=== PATIENT | female | born 1950 | race Caucasian/White ===

== ENCOUNTER → 2019-05-02 13:11 | Outpatient (CLI) | payer MEDICARE, BC, SELFPAY ==
--- NOTE | ~2019-05-02 | MM_ITS ---
EXAMINATION: MM screening [facility] BI w carlos HISTORY: Screening mammogram, family history of breast cancer in her mother. TECHNIQUE: Craniocaudal and mediolateral oblique 3-D tomosynthesis images were obtained and synthetic 2-D images were generated. CAD analysis was submitted and interpreted. COMPARISON: No prior mammogram is available for comparison at this institution. BREAST PARENCHYMAL COMPOSITION: There are scattered areas of fibroglandular density. FINDINGS: There is no evidence of suspicious mass, calcification, or architectural distortion to sugg est malignancy in either breast. IMPRESSION: 1. No mammographic evidence of malignancy. 2. Recommend routine screening mammography in one year. BI-RADS Category 1: Negative Reviewed, dictated and finalized at location A.
--- NOTE | ~2019-05-02 | DEXA_ITS ---
Bone Density Report Name: Jessika Menjivar Age: 69 Sex: Female Ethnicity: White Date of : 1950 Indication: osteopenia; monitoring treatment; height loss; prior fracture; hysterectomy; postmenopausal Referring Provider: Linnette, Candi Ferraro Study: Bone densitometry was performed. Exam Date: May 02, 2019 Accession number: [id number] Bone Density: Region BMD T-score Z-score Classification AP Spine (L1-L4) 0.789 -2.3 -0.2 Osteopenia Femoral Neck (Left) 0.528 -2.9 -1.1 Osteoporosis Total Hip (Left) 0.671 -2.2 -0.7 Osteopenia Femoral Neck (Right) 0.597 -2.3 -0.5 Osteopenia Total Hip (Right) 0.728 -1.8 -0.2 Osteopenia Total Hip Mean 0.700 -2.0 -0.5 Osteopenia World Health Organization criteria for BMD impression classify patients as: Normal (T-score at or above -1.0), Osteopenia (T-score between -1.0 and -2.5), or Osteoporosis (T-score at or below -2.5). 10-year Fracture Risk: FRAX not reported because: Some T-score for Spine Total or Hip Total or Femoral Neck at or below -2.5 Treated for osteoporosis Previous Exams: Region Exam Age BMD T-score BMD Change BMD Change Date g/cm2 vs Baseline vs Previous AP Spine(L1-L4) 05/02/2019 69 0.789 -2.3 -0.110* -0.151* 12/28/2009 59 0.940 -1.0 0.041* 0.031* 12/19/2008 58 0.909 -1.3 0.010 -0.007 07/21/2007 57 0.916 -1.2 0.018 0.018 07/09/2006 56 0.899 -1.3 Total Hip(Left) 05/02/2019 69 0.671 -2.2 -0.095* -0.125* 12/28/2009 59 0.796 -1.2 0.031* 0.022 12/19/2008 58 0.774 -1.4 0.009 0.033* 07/21/2007 57 0.741 -1.6 -0.024 -0.024 07/09/2006 56 0.765 -1.5 Total Hip(Right) 05/02/2019 69 0.728 -1.8 -0.066* -0.074* 12/28/2009 59 0.802 -1.1 0.008 0.018 12/19/2008 58 0.785 -1.3 -0.009 -0.001 07/21/2007 57 0.786 -1.3 -0.008 -0.008 07/09/2006 56 0.794 -1.2 *Denotes significance at 95% confidence level, LSC for AP Spine = 0.022 g/cm2, LSC for Total Hip = 0.027 g/cm2 Clinical Information Provided by Patient: Has had a low trauma fracture Is being treated for osteoporosis Has used the following medications: Fosamax (i.e. alendronate), Vitamin D Has the following medical conditions: Hysterectomy, COPD Patient maximum height was 66 Menopause Age: 32 Drinks caffeinated beverages Onset of menses at age 1
== END ==
PROVIDERS: PCP Family Medicine; Visit Provider Nurse Practitioner Obstetrics & Gynecology
DX: Z12.31 Encounter for screening mammogram for malignant neoplasm of breast (principal); M85.89 Other specified disorders of bone density and structure, multiple sites; M81.0 Age-related osteoporosis without current pathological fracture; Z78.0 Asymptomatic menopausal state
CPT/HCPCS: 77063; 77067; 77080

== ENCOUNTER 2020-01-16 07:27 | Outpatient (CLI) | payer MEDICARE, BC, SELFPAY ==
--- NOTE | ~2020-01-16 | CT_ITS ---
EXAMINATION: CT abdomen pelvis wo con EXAM DATE: 01/16/2020 08:02 INDICATION: Kidney stone. TECHNIQUE: Spiral CT of the abdomen and pelvis was performed without contrast. Axial, coronal and sag ittal images were reviewed. The dose-length product (DLP) for this examination was 167.89 mGy-cm. T he exposure was tailored according to patient size (auto mA exposure control), and iterative reconstr uction (ASIR) was used as additional dose reduction technique. There is no prior study for compariso n. FINDINGS: There is no nephrolithiasis or hydronephrosis. The uterus is not identified and has likel y been surgically resected. The bladder is unremarkable. The liver, spleen, adrenal glands and panc reas are unremarkable. There are cholecystectomy clips. There is no retroperitoneal or pelvic lymph adenopathy. There is mild scattered arteriosclerotic disease. The appendix is normal. The stomach and small bowel are unremarkable. There is expected amount of c olonic stool. No free intraperitoneal gas. The heart is normal in size. There are no pericardial or pleural effusions. The lung bases are unremarkable. 2 chronic bilateral L5 spondylolysis with 2 mm anterolisthesis L5 on S1. Mild lumbar levoscoliosis. There are no osteoblastic or osteolytic lesi ons identified. IMPRESSION: No nephrolithiasis, hydronephrosis or acute intra-abdominal findings. Reviewed, dictated and finalized at location B. 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
== END 2020-01-16 07:28 | disposition home or self-care (01) ==
PROVIDERS: PCP Family Medicine
DX: N20.0 Calculus of kidney (principal)
CPT/HCPCS: 74176

== ENCOUNTER 2020-03-30 08:58 | Outpatient (CLI) | payer MEDICARE, BC, SELFPAY ==
--- NOTE | ~2020-03-30 | XR_ITS ---
XR chest 2V DATE: 03/30/2020 10:29 INDICATION: Chest pain TECHNIQUE: PA and lateral views COMPARISON: 03/14/2015 2 views chest FINDINGS: Bilateral hyperinflation consistent with obstructive airways disease. Normal heart size. No hilar or mediastinal enlargement. There is bilateral apical scarring. No pulmonary infiltrate or consolidation, pleural effusion or pul monary vascular congestion or pneumothorax. Surgical clips, right upper quadrant, likely due to cholecystectomy. Osteopenia. IMPRESSION: Bilateral hyperinflation consistent with obstructive airways disease Bilateral apical scarring No active cardiopulmonary disease Reviewed, dictated and finalized at location A. ING INSTRUCTOR IMPRESSION: Bilateral hyperinflation consistent with obstructive airways diseas e Bilateral apical scarring No active cardiopulmonary disease
--- NOTE | ~2020-03-30 | MR_ITS ---
EXAMINATION: MR cervical spine wo con EXAM DATE: 03/30/2020 10:24 INDICATION: Cervical spondylosis, myelopathy. TECHNIQUE: Multi-sequential, multiplanar MR images of the cervical spine were obtained without contra st. Axial T2, axial T2 MERGE sequence. Sagittal T1, T2, T2 fat saturation images also obtained. Com parison is made to prior examination from 03/21/2014. FINDINGS: Congenital os odontoideum. There is moderate disc disease C3-C7, mild to moderate at C2-3. The vertebral bodies are aligned in the AP dimension. The spinal cord signal intensity and intrinsic morphology is normal. Cervicomedullary junction is normal in appearance. There are no suspicious mar row signal abnormalities. Paraspinal soft tissue is unremarkable. Level by level evaluation: C2-C3: There is a mild diffuse disc bulge. Uncovertebral joint arthropathy: None. Facet joint arthropathy: Mild bilateral. Neural foraminal stenosis: No stenosis. Central canal stenosis: No stenosis. C3-C4: There is a mild diffuse disc bulge. Uncovertebral joint arthropathy: Mild bilateral. Facet joint arthropathy: Mild bilateral. Neural foraminal stenosis: Mild right. Central canal stenosis: Mild. C4-C5: There is a mild diffuse disc bulge. Uncovertebral joint arthropathy: Mild to moderate bilateral. Facet joint arthropathy: Mild to moderate bilateral. Neural foraminal stenosis: Mild to moderate left, mild right. Central canal stenosis: Mild. C5-C6: There is a mild diffuse disc bulge. Uncovertebral joint arthropathy: Moderate bilateral. Facet joint arthropathy: Moderate bilateral. Neural foraminal stenosis: Mild right. Central canal stenosis: Mild. C6-C7: There is a mild diffuse disc bulge. Uncovertebral joint arthropathy: Moderate bilateral. Facet joint arthropathy: Mild bilateral. Neural foraminal stenosis: Mild to moderate left. Central canal stenosis: Mild. C7-T1: Disc does not extend beyond the endplate margin. Uncovertebral joint arthropathy: None. Facet joint arthropathy: Mild bilateral. Neural foraminal stenosis: No stenosis. Central canal stenosis: No stenosis. Mild interval progression in spondylosis compared to 2014. IMPRESSION: Moderate midcervical disc disease and uncovertebral joint arthropathy. Reviewed, dictated and finalized at location B. 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
--- NOTE | ~2020-03-30 | MR_ITS ---
EXAMINATION: MR lumbar spine wo [facility] EXAM DATE: 03/30/2020 10:30 INDICATION: Spondylosis without myelopathy. TECHNIQUE: Multi-sequential, multiplanar MR images of the lumbar spine were obtained without contrast . Sagittal T1, T2, T2 fat saturation images. Axial T2 weighted images. There is no prior study for comparison. FINDINGS: Mildly heterogeneous bone marrow without suspicious signal abnormality. There is a small Ta rlov cyst posterior to the S2 segment. Mild disc disease from L2 through L5. The vertebral bodies are aligned in the AP dimension. The conus medullaris terminates at the T12-L1 level and has normal sign al intensity and morphology. Paraspinal soft tissue is unremarkable. Level by level evaluation: T12-L1: Disc does not extend beyond the endplate margin. Facet arthropathy: None. Neural foraminal stenosis: No stenosis. Central canal stenosis: No stenosis. L1-L2: Disc does not extend beyond the endplate margin. Facet arthropathy: Minimal. Neural foraminal stenosis: No stenosis. Central canal stenosis: No stenosis. L2-L3: There is a mild diffuse disc bulge. Facet arthropathy: Mild. Neural foraminal stenosis: No stenosis. Central canal stenosis: No stenosis. L3-L4: There is a mild to moderate diffuse disc bulge. Facet arthropathy: Mild to moderate. Neural foraminal stenosis: Mild right. Central canal stenosis: Mild. L4-L5: There is a mild diffuse disc bulge. Facet arthropathy: Mild to moderate. Neural foraminal stenosis: Mild bilateral. Central canal stenosis: Mild. L5-S1: There is a mild diffuse disc bulge. Facet arthropathy: Mild to moderate. Neural foraminal stenosis: Minimal right. Central canal stenosis: No stenosis. IMPRESSION: 1. Mild lumbar spondylosis. Reviewed, dictated and finalized at location B. TY SHERIFF/INVESTIGATOR IMPRESSION: 1. Mild lumbar spondylosis.
== END 2020-03-30 08:59 | disposition home or self-care (01) ==
PROVIDERS: PCP Family Medicine; Visit Provider Anesthesiology
DX: M47.812 Spondylosis without myelopathy or radiculopathy, cervical region (principal); M47.26 Other spondylosis with radiculopathy, lumbar region; M50.30 Other cervical disc degeneration, unspecified cervical region; R91.8 Other nonspecific abnormal finding of lung field
CPT/HCPCS: 71046; 72141; 72148

== ENCOUNTER → 2020-06-25 12:03 | Outpatient (CLI) | payer MEDICARE, BC, SELFPAY ==
--- NOTE | ~2020-06-25 | MM_ITS ---
EXAMINATION: MM screening [facility] BI w carlos HISTORY: Screening TECHNIQUE: Craniocaudal and mediolateral oblique 3-D tomosynthesis images were obtained and synthetic 2-D images were generated. CAD analysis was submitted and interpreted. COMPARISON: 05/02/2019 BREAST PARENCHYMAL COMPOSITION: There are scattered areas of fibroglandular density. FINDINGS: The there is a focal asymmetry in the lower inner quadrant of the left breast anteriorly. T he right breast is stable without evidence for malignancy. IMPRESSION: 1. Focal asymmetry lower inner quadrant of the left breast anteriorly. 2. Additional mammographic views and possible breast ultrasound are recommended. BI-RADS Category 0: Incomplete: Needs additional imaging evaluation. Reviewed, dictated and finalized at location A. IMPRESSION: 1. Focal asymmetry lower inner quadrant of the left breast anteriorly. 2. Additional mammographic views and possible breast ultrasound are recommended . BI-RADS Category 0: Incomplete: Needs additional imaging evaluation.
== END ==
PROVIDERS: Referring Provider Nurse Practitioner Obstetrics & Gynecology; Visit Provider Obstetrics & Gynecology
DX: Z12.31 Encounter for screening mammogram for malignant neoplasm of breast (principal); R92.8 Other abnormal and inconclusive findings on diagnostic imaging of breast
CPT/HCPCS: 77063; 77067

== ENCOUNTER → 2020-07-20 08:28 | Outpatient (CLI) | payer MEDICARE, BC, SELFPAY ==
--- NOTE | ~2020-07-20 | MMUS_ITS ---
EXAMINATION: MM diagnostic mammo unilat LT, US breast LT limited HISTORY: Focal mammographic asymmetry reported in the lower inner quadrant of left breast on 06/25/2020 screening mammogram TECHNIQUE: Additional 3-D tomosynthesis images of the left breast were performed and synthetic 2-D im ages were generated. CAD analysis was submitted and interpreted. High resolution lower inner quadrant left breast ultrasound was performed. COMPARISON: 06/25/2020 and 05/02/2019 bilateral digital screening mammogram examinations FINDINGS: MAMMOGRAPHIC FINDINGS: No interval suspicious mass or architectural distortion or significant new or developing density, mal ignant calcification, skin thickening or retraction is evident. ULTRASOUND: 8:00 4 cm from nipple: Benign-appearing 3.1 x 4.9 x 5.2 mm lymph node. No suspicious mass or shadowing is detected. IMPRESSION: 1. No mammographic evidence of malignancy 2. Routine mammographic screening is recommended. BI-RADS Category 2: Benign finding(s). Reviewed, dictated and finalized at location A. IMPRESSION: 1. No mammographic evidence of malignancy 2. Routine mammographic screening is recommended. BI-RADS Category 2: Benign finding(s).
== END ==
PROVIDERS: Visit Provider Obstetrics & Gynecology
DX: R92.8 Other abnormal and inconclusive findings on diagnostic imaging of breast (principal)
CPT/HCPCS: 76642; 77065

== ENCOUNTER 2020-08-30 08:41 | Outpatient (CLI) | payer MEDICARE, BC, SELFPAY ==
--- NOTE | 2020-08-30 17:01 | WPDPFTINT ---
PFT Procedure Performed PFT Procedure Performed Spirometry with Pre/Post Bronchodilator Plethysmography (Lung Vol) Diffusing Cap (DLCO) Flow Vol Loop PFT Interpretation This is a pulmonary function test with pre and post-bronchodilator spirometry, plethysmography and diffusing capacity. The test was performed and results interpreted in accordance with the 2019 and 2005 ATS/ERS Task Force guidelines respectively using the Global Lung Function Initiative-2012 reference equations. Patient demonstrated good effort and cooperation. Reproducibility criteria were met. The quality of the pre bronchodilator spirometry maneuver was Grade B and post bronchodilator spirometry maneuver was Grade A. Findings: Spirometry: The contour of the inspiratory and expiratory flow tracing are normal. The pre bronchodilator FVC is 3.29 L, 116% predicted. The pre bronchodilator FEV1 is 2.29 L, 104% predicted. The FEV1: FVC ratio 70%. The post bronchodilator FVC is 3.36 L, representing a 2% increase. The post bronchodilator FEV1 is 2.39 L, representing a 4% increase. Plethysmography: The total lung capacity is 5.03 L, 99% predicted. Functional residual capacity is 2.99 L, 103% predicted. The residual volume is 1.74 L, 79% predicted. Diffusing capacity: The absolute diffusion capacity is 14.8, 73% predicted. The diffusing capacity corrected for alveolar volume is 3.50, 82% predicted. In comparison to prior pulmonary function tests on 03/22/2015 the post bronchodilator FVC is unchanged from 3.84 L to 3.36 L. The post bronchodilator FEV1 is unchanged from 2.78 to 2.39 L. The total lung capacity is unchanged from 4.52 L to 5.03 L. The functional residual capacity is increased from 2.21 L to 2.99 L. The residual volume is increased from 0.65 L to 1.74 L. The absolute diffusion capacity is unchanged from 15.6 to 14.8. The diffusing capacity corrected for alveolar volume is unchanged from 3.18 to 3.50. Impression: The spirometry is normal without evidence of an obstructive abnormality. There is no significant improvement after inhaling a single dose of albuterol. The lung volumes are normal. The diffusing capacity is normal. In comparison to prior pulmonary function tests on 03/22/2015 there has been a greater than anticipated time dependent increase in functional residual capacity and residual volume with no significant change in FVC, FEV1, total lung capacity, absolute diffusion capacity or diffusing capacity corrected for alveolar volume. Clinical correlation is recommended. There are no prior studies for comparison
== END 2020-08-30 08:42 | disposition home or self-care (01) ==
LOC: ANHPFT 08:42
PROVIDERS: PCP Family Medicine; Visit Provider Family Medicine
DX: J44.9 Chronic obstructive pulmonary disease, unspecified (principal)
CPT/HCPCS: 94060; 94726; 94729

== ENCOUNTER 2020-09-03 02:26 | Day surgery (SDC) | payer MEDICARE, BC, SELFPAY ==
[2020-09-03 06:22] VITALS: BP 102/70; PULSE 60; RESP 16; TEMP 35.9; O2SAT 99; BMI 19.5
--- NOTE | 2020-09-03 06:28 | WPDANESEPPF ---
Anes - Initial Pre Proc Eval Procedure: Operation Date: 09/03/20 07:30 Proposed Procedures p Screening Colonoscopy - Kennedy Huynh MD Date/Time: 09/03/20 06:28 Surgeon: Kennedy Huynh MD Pre Op Diagnosis: family hx colon CA Patient Data Age: 70 Gender: F Height: 1.63 m Weight: 51.5 kg Last Vital Signs Temp 35.9 C L 09/03/20 06:22 Pulse 60 09/03/20 06:22 Resp 16 09/03/20 06:22 BP 102/70 09/03/20 06:22 Pulse Ox 99 09/03/20 06:22 Allergies Allergy/AdvReac Type Severity Reaction Status Date / Time codeine Allergy Severe TONGUE Verified 09/03/20 06:20 SWELLS iodine Allergy Severe TONGUE Verified 09/03/20 06:20 SWELLS, HIVES hydrocodone Allergy Intermediate ITCHY, Verified 09/03/20 06:20 RASH, VOMITING meperidine Allergy Intermediate RASH, Verified 09/03/20 06:20 VOMITING Penicillins Allergy Intermediate RASH Verified 09/03/20 06:20 propoxyphene Allergy Unknown Other Verified 09/03/20 06:20 Home Medications Medication Instructions Recorded Confirmed Type alendronate 70 mg tablet 70 mg PO WEEKLY 03/23/19 08/15/20 History apixaban 5 mg tablet 5 mg PO BID 03/23/19 09/03/20 History flecainide 100 mg tablet 100 mg PO Q12H 03/23/19 08/15/20 History metoprolol succinate 25 mg 25 mg PO DAILY 03/23/19 08/15/20 History tablet,extended release 24 hr omeprazole 20 mg capsule,delayed 20 mg PO DAILY 03/23/19 08/15/20 History release fluticasone propionate 50 1 spray NASAL BID #19.8 ml 11/28/19 08/15/20 Rx mcg/actuation nasal spray,suspension atorvastatin 10 mg tablet 10 mg PO DAILY #30 tablet 01/10/20 08/15/20 Rx gabapentin 300 mg capsule 300 mg PO BID #180 cap 01/16/20 08/15/20 Rx lorazepam 0.5 mg tablet 0.5 mg PO BID PRN #60 tablet 03/06/20 08/15/20 Rx paroxetine HCl 40 mg tablet 40 mg PO DAILY #30 tablet 06/04/20 08/15/20 Rx Patient hx anesthesia problems: post op nausea/vomiting Family hx anesthesia problems: none PMFSH Past Medical History Medical History Actinic keratosis Anemia Arthritis BMI 20.0-20.9, adult Chronic anxiety Chronic atrial fibrillation Chronic depression Chronic interstitial cystitis Chronic low back pain with right-sided sciatica Chronic neck pain Chronic obstructive pulmonary disease, unspecified Generalized headaches GERD (gastroesophageal reflux disease) Heart disease Insomnia 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 Osteoporosis Renal stone Surgical History Surgical History H/O cardiac radiofrequency ablation H/O left wrist surgery H/O prior ablation treatment H/O: hysterectomy (~1982) History of appendectomy (~1973) History of nasal surgery (~2015) History of shoulder surgery (Unknown) right History of toe surgery Hx of cholecystectomy (~1973) Family History Family History Father Carcinoma of colon Mother Family history of malignant neoplasm of breast in first degree relative Family history of malignant neoplasm Grandparent Family history of malignant neoplasm of stomach Other Family history of pancreatic cancer Social History Social History Smoking status: Never smoker Alcohol intake: current Alcohol use details: socially Living arrangements: alone Spiritual care concerns: No Anes - Eval Final PreProcedure Day of Procedure 09/03/20 06:28 Patient weight: normal Heart: regular rate and rhythm Lungs: clear to auscultation Airway: Mallampati scale class 1 Neurological: alert and oriented Last oral intake: >/= 8 hours ASA classification: III Anesthetic plan: proceed
[2020-09-03] MEDS: LACTATED RINGERS 1,000 ML 150 ML IV CONT (06:36)
--- NOTE | 2020-09-03 07:05 | PM.HPGS ---
History of Present Illness History of Present Illness Consent: Risks, benefits, and alternatives have been discussed and questions answered. Patient agrees to proceed with procedure. Chief complaint: family hx colon CA Narrative: Jessika Menjivra is a 70 year old female Here for colon cancer screening. 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 Osteoporosis Renal stone Surgical History Surgical History H/O cardiac radiofrequency ablation H/O left wrist surgery H/O prior ablation treatment H/O: hysterectomy (~1982) History of appendectomy (~1973) History of nasal surgery (~2015) History of shoulder surgery (Unknown) right History of toe surgery Hx of cholecystectomy (~1973) Family History Family History Father Carcinoma of colon Mother Family history of malignant neoplasm of breast in first degree relative Family history of malignant neoplasm Grandparent Family history of malignant neoplasm of stomach Other Family history of pancreatic cancer Social History Social History Smoking status: Never smoker Alcohol intake: current Alcohol use details: socially Living arrangements: alone Spiritual care concerns: No Meds Home Medications and Allergies Home Medications Medication Instructions Recorded Confirmed Type alendronate 70 mg tablet 70 mg PO WEEKLY 03/23/19 08/15/20 History apixaban 5 mg tablet 5 mg PO BID 03/23/19 09/03/20 History flecainide 100 mg tablet 100 mg PO Q12H 03/23/19 08/15/20 History metoprolol succinate 25 mg 25 mg PO DAILY 03/23/19 08/15/20 History tablet,extended release 24 hr omeprazole 20 mg capsule,delayed 20 mg PO DAILY 03/23/19 08/15/20 History release fluticasone propionate 50 1 spray NASAL BID #19.8 ml 11/28/19 08/15/20 Rx mcg/actuation nasal spray,suspension atorvastatin 10 mg tablet 10 mg PO DAILY #30 tablet 01/10/20 08/15/20 Rx gabapentin 300 mg capsule 300 mg PO BID #180 cap 01/16/20 08/15/20 Rx lorazepam 0.5 mg tablet 0.5 mg PO BID PRN #60 tablet 03/06/20 08/15/20 Rx paroxetine HCl 40 mg tablet 40 mg PO DAILY #30 tablet 06/04/20 08/15/20 Rx Allergies Allergy/AdvReac Type Severity Reaction Status Date / Time codeine Allergy Severe TONGUE Verified 09/03/20 06:20 SWELLS iodine Allergy Severe TONGUE Verified 09/03/20 06:20 SWELLS, HIVES hydrocodone Allergy Intermediate ITCHY, Verified 09/03/20 06:20 RASH, VOMITING meperidine Allergy Intermediate RASH, Verified 09/03/20 06:20 VOMITING Penicillins Allergy Intermediate RASH Verified 09/03/20 06:20 propoxyphene Allergy Unknown Other Verified 09/03/20 06:20 Vital Signs Vital Signs - 24 hr 09/03/20 06:22 Temperature 35.9 C L Pulse Rate 60 Respiratory Rate 16 Blood Pressure 102/70 Pulse Oximetry 99 Exam Const: General: alert Orientation/consciousness: patient oriented x3 Resp: Auscultation: clear to auscultation bilaterally Cardio: Rhythm: regular rhythm GI: GI Palp: Yes Soft to palpation and No Tenderness to p
[2020-09-03] MEDS: SIMETHICONE ORAL SUSPENSION 20 MG/0.3 ML 30 ML BOTTLE 0.6 ML IRRIGATION (07:34)
[2020-09-03 07:45] VITALS: BP 89/49; PULSE 53; RESP 12; O2SAT 100
[2020-09-03 07:55] VITALS: BP 95/51; PULSE 53; RESP 12; O2SAT 100
[2020-09-03 08:05] VITALS: BP 112/53; PULSE 53; RESP 16; O2SAT 95
== END 2020-09-03 08:21 | disposition home or self-care (01) ==
PROVIDERS: PCP Family Medicine; Visit Provider Internal Medicine Gastroenterology
PROC: 0DJD8ZZ Inspection of Lower Intestinal Tract, Via Natural or Artificial Opening Endoscopic (ICD-10-PCS; CPT 45378; principal; 2020-09-03 07:30)
DX: Z12.11 Encounter for screening for malignant neoplasm of colon (principal); D12.2 Benign neoplasm of ascending colon; Z80.0 Family history of malignant neoplasm of digestive organs; D64.9 Anemia, unspecified; I48.20 Chronic atrial fibrillation, unspecified; J44.9 Chronic obstructive pulmonary disease, unspecified; K21.9 Gastro-esophageal reflux disease without esophagitis; M81.0 Age-related osteoporosis without current pathological fracture; F41.8 Other specified anxiety disorders; M19.90 Unspecified osteoarthritis, unspecified site; Z79.01 Long term (current) use of anticoagulants
CPT/HCPCS: 45380; 88305; J2704; J7120

== ENCOUNTER → 2021-09-18 13:25 | Outpatient (CLI) | payer MEDICARE, BC, SELFPAY ==
--- NOTE | ~2021-09-18 | MM_ITS ---
EXAMINATION: MM screening [facility] BI w carlos HISTORY: Screening mammogram TECHNIQUE: Craniocaudal and mediolateral oblique 3-D tomosynthesis images were obtained and synthetic 2-D images were generated. CAD analysis was submitted and interpreted. COMPARISON: 07/20/2020 diagnostic left mammogram and limited left breast ultrasound examination BREAST PARENCHYMAL COMPOSITION: There are scattered areas of fibroglandular density. FINDINGS: Stable mild fibroglandular asymmetry. There is no evidence of suspicious mass, calcificatio n, or architectural distortion to suggest malignancy in either breast. There has been no suspicious i nterval change. IMPRESSION: 1. No mammographic evidence of malignancy. 2. Recommend routine screening mammography in one year. BI-RADS Category 1: Negative Reviewed, dictated and finalized at location A.
== END ==
PROVIDERS: PCP Family Medicine; Visit Provider Advanced Practice Midwife
DX: Z12.31 Encounter for screening mammogram for malignant neoplasm of breast (principal)
CPT/HCPCS: 77063; 77067

== ENCOUNTER 2021-10-07 19:00 | Emergency (ER) | payer MEDICARE, BC, SELFPAY ==
[2021-10-07 19:11] VITALS: BP 92/59; PULSE 72; RESP 30; TEMP 36.4; O2SAT 97
--- NOTE | 2021-10-07 19:15 | ECG_ITS ---
Measurements Intervals Brickeys Rate: 75 P: 72 W[place]: 186 QRS: 265 QRSD: 110 T: 61 QT: 312 QTc: 351 Interpretive Statements SINUS RHYTHM INDETERMINATE AXIS NONSPECIFIC ST AND T-WAVE ABNORMALITY SIGNIFICANT ARTIFACT LIMITS INTERPRETATION ABNORMAL ECG NO PREVIOUS ECG AVAILABLE FOR COMPARISON Electronically Signed On 10-08-2021 8:47:10 CDT by Mendez Uriostegui M.D.
[2021-10-07 19:27] LABS: Basophils Percent Auto 0.5 % (0.2-1.2); Eosinophils Percent Auto 0.3 % (0-4.4); Hematocrit 33.7 % (37.0-47.0); Hemoglobin 11.4 g/dL (12.0-15.0); Immature Granulocyte Absolute 0.02 K/mm3 (0.00-0.031); Immature Granulocyte Percent A 0.5 % (0-0.5); Lymphocytes Absolute Auto 1.44 K/mm3 (0.9-3.2); Lymphocytes Percent Auto 37.6 % (18.3-44.2); Mean Corpuscular HGB Conc 33.8 g/dl (32-36); Mean Corpuscular Hemoglobin 30.5 pg (26-34); Mean Corpuscular Volume 90.1 fl (80-100); Mean Platelet Volume 10.4 fl (7.4-10.4); Monocytes Absolute Auto 0.3 K/mm3 (0.1-0.6); Neutrophils Absolute Auto 2.1 K/mm3 (1.3-6.7); Neutrophils Percent Auto 54.1 % (45.5-73.1); Platelet Count Result 168 k/mm3 (150-375); Red Blood Count 3.74 M/mm3 (4.2-5.4); Red Cell Distribution Width 13.3 % (11.5-14.5); White Blood Count 3.8 K/mm3 (4.5-10.0)
[2021-10-07 20:20] LABS: Alanine Aminotransferase 26 U/L (6-35); Albumin Level 4.3 g/dL (3.5-5.1); Alkaline Phosphatase 65 U/L (38-126); Anion Gap 12 mmol/L (8-16); Aspartate Amino Transferase 34 U/L (14-36); Bilirubin,Total 0.5 mg/dL (0.2-1.3); Blood Urea Nitrogen 11 mg/dL (7-17); Calcium 9.1 mg/dL (8.4-10.2); Carbon Dioxide 21 mmol/L (22-30); Chloride 106 mmol/L (98-107); Estimated CRCL calculation 41 ml/min; Estimated Glomerular Filt Rate > 60; Glucose 124 mg/dL (65-110); Potassium 3.7 mmol/L (3.4-5.0); Sodium 139 mmol/L (137-145)
[2021-10-07 20:35] LABS: Lipase 48 U/L (23-300)
[2021-10-07 21:29] VITALS: RESP 27; O2SAT 100
[2021-10-07 21:30] VITALS: RESP 23; O2SAT 100
[2021-10-07 22:04] VITALS: PULSE 62; RESP 16
[2021-10-07] MEDS: LORazepam INJ (*CRX) 2 MG/ML VIAL 0.5 MG IV PUSH (22:16)
[2021-10-07 22:22] VITALS: BP 138/78; PULSE 59; RESP 15; O2SAT 100
--- NOTE | 2021-10-07 22:23 | ED.GENADULT ---
HPI - General Adult General Chief complaint: Unspecified Stated complaint: Chest Pain Time Seen by Provider: 10/07/21 21:43 History of Present Illness HPI narrative: 71-year-old female presents emergency room after taking some CBD for the first time. Patient is got chronic underlying tremors. Someone told her that the CBD may actually help with this. She took half to 1 and afterwards began feeling even more off. She states she was feeling out of it. She was more jittery and shaky. She felt like her heart was racing. She does have underlying history of A. fib as well as SVT. Subsequently she came to the emergency room to be evaluated. Denies any chest pain or shortness of breath. No cough or congestion. Related Data Home Medications Medication Instructions Recorded Confirmed apixaban 5 mg tablet (Eliquis) 5 mg PO BID 03/23/19 06/05/21 flecainide 100 mg tablet 100 mg PO Q12H 03/23/19 06/05/21 metoprolol succinate 25 mg 25 mg PO DAILY 03/23/19 06/05/21 tablet,extended release 24 hr omeprazole 20 mg capsule,delayed 20 mg PO DAILY 03/23/19 06/05/21 release cyanocobalamin (vitamin B-12) 1,000 mcg PO DAILY 01/07/21 06/05/21 1,000 mcg tablet cholecalciferol (vitamin D3) 50 2,000 unit PO DAILY 06/05/21 06/05/21 mcg (2,000 unit) capsule gentesa BYMOUTH . q.h.s. 06/05/21 06/05/21 Allergies Allergy/AdvReac Type Severity Reaction Status Date / Time codeine Allergy Severe TONGUE Verified 10/07/21 19:11 SWELLS iodine Allergy Severe TONGUE Verified 10/07/21 19:11 SWELLS, HIVES hydrocodone Allergy Intermediate ITCHY, Verified 10/07/21 19:11 RASH, VOMITING meperidine Allergy Intermediate RASH, Verified 10/07/21 19:11 VOMITING Penicillins Allergy Intermediate RASH Verified 10/07/21 19:11 propoxyphene Allergy Unknown Other Verified 10/07/21 19:11 Review of Systems Review of Systems: CONSTITUTIONAL: Denies fever, chills, or sweats. EYES: Denies visual changes, redness, or discharge. ENT: Denies rhinorrhea, congestion, sore throat, or otalgia. CARDIOVASCULAR: Denies chest pain, palpitations, or edema. RESPIRATORY: Denies cough or dyspnea. GASTROINTESTINAL: Denies abdominal pain, nausea, vomiting, or diarrhea. GENITOURINARY: Denies dysuria or hematuria. SKIN: Denies rash or itching. MUSCULOSKELETAL: Denies back pain, joint pain, or myalgia. NEUROLOGIC: Denies headache, numbness, or weakness. Chronic tremors PSYCHIATRIC: Denies anxiety or depression. [facility] Past Medical History Medical History Actinic keratosis Anemia hemoglobin normal at 12.0 on 01/05/2021 Arthritis BMI 20.0-20.9, adult Body mass index (BMI) of 19 or less in adult Chronic anxiety Chronic atrial fibrillation Chronic depression Chronic interstitial cystitis Chronic leukopenia WBC 2.7 with platelets 140 on 07/11/2019 with WBC 2.8, hemoglobin 12, and platelets 140 on 01/05/2021 Chronic low back pain with right-sided sciatica Chronic neck pain Chronic obstructive pulmonary disease, unspecified normal pulmonary function study on 08/30/2020 with mild small- airway reversibility Chronic thoracic back pain Generalized headaches GERD (gastroesophageal reflux disease) Heart disease Insomnia Neoplasm of skin of upper arm (08/07/20) benign verrucous keratosis Neutropenic disorder Osteoarthritis involving multiple joints on both sides of body Osteoporosis Polyp of colon (09/03/20) multiple tiny colon polyps on colonoscopy 09/03/[address] Hunyh. Recheck in 5 years Renal stone Vitamin B12 deficiency anemia vitamin B12 low at 337 with folic acid normal 19.1 on 01/05/2021 Vitamin D deficiency, unspecified (~01/05/21) Vitamin-D level low at 26.2 on 01/05/2021 Surgical History Surgical History H/O cardiac radiofrequency ablation H/O left wrist surgery H/O prior ablation treatment H/O: hysterectomy (~1982) Hist
[2021-10-07 23:23] VITALS: PULSE 90; RESP 18; O2SAT 99
== END 2021-10-07 23:25 | disposition home or self-care (01) ==
PROVIDERS: Emergency Provider Emergency Medicine; PCP Family Medicine
DX: F41.9 Anxiety disorder, unspecified (principal); T40.715A Adverse effect of cannabis, initial encounter; I48.91 Unspecified atrial fibrillation; D64.9 Anemia, unspecified; F32.9 Major depressive disorder, single episode, unspecified; K21.9 Gastro-esophageal reflux disease without esophagitis; M19.90 Unspecified osteoarthritis, unspecified site
CPT/HCPCS: 36415; 80053; 83690; 85025; 93005; 96374; 99284; J2060

== ENCOUNTER → 2021-10-25 12:18 | Outpatient (CLI) | payer MEDICARE, BC, SELFPAY ==
--- NOTE | ~2021-10-25 | DEXA_ITS ---
Bone Density Report Name: LISSET MORILLO Age: 71 Sex: Female Ethnicity: White Date of : 1950 Indication: osteopenia; monitoring treatment; height loss; prior fracture; hysterectomy; Referring Provider: Bonnie Nichols Study: Bone densitometry was performed. Exam Date: October 25, 2021 Accession number: [id number] Bone Density: Region BMD T-score Z-score Classification AP Spine (L1-L4) 0.819 -2.1 0.2 Osteopenia Femoral Neck (Left) 0.532 -2.9 -0.9 Osteoporosis Total Hip (Left) 0.699 -2.0 -0.3 Osteopenia Femoral Neck (Right) 0.612 -2.1 -0.2 Osteopenia Total Hip (Right) 0.735 -1.7 0.0 Osteopenia Total Hip Mean 0.717 -1.9 -0.2 Osteopenia World Health Organization criteria for BMD impression classify patients as: Normal (T-score at or above -1.0), Osteopenia (T-score between -1.0 and -2.5), or Osteoporosis (T-score at or below -2.5). 10-year Fracture Risk: FRAX not reported because: Some T-score for Spine Total or Hip Total or Femoral Neck at or below -2.5 Treated for osteoporosis Previous Exams: Region Exam Age BMD T-score BMD Change BMD Change Date g/cm2 vs Baseline vs Previous AP Spine(L1-L4) 10/25/2021 71 0.819 -2.1 -0.079* 0.030* 05/02/2019 69 0.789 -2.3 -0.110* -0.151* 12/28/2009 59 0.940 -1.0 0.041* 0.031* 12/19/2008 58 0.909 -1.3 0.010 -0.007 07/21/2007 57 0.916 -1.2 0.018 0.018 07/09/2006 56 0.899 -1.3 Total Hip(Left) 10/25/2021 71 0.699 -2.0 -0.066* 0.029* 05/02/2019 69 0.671 -2.2 -0.095* -0.125* 12/28/2009 59 0.796 -1.2 0.031* 0.022 12/19/2008 58 0.774 -1.4 0.009 0.033* 07/21/2007 57 0.741 -1.6 -0.024 -0.024 07/09/2006 56 0.765 -1.5 Total Hip(Right) 10/25/2021 71 0.735 -1.7 -0.059* 0.007 05/02/2019 69 0.728 -1.8 -0.066* -0.074* 12/28/2009 59 0.802 -1.1 0.008 0.018 12/19/2008 58 0.785 -1.3 -0.009 -0.001 07/21/2007 57 0.786 -1.3 -0.008 -0.008 07/09/2006 56 0.794 -1.2 *Denotes significance at 95% confidence level, LSC for AP Spine = 0.022 g/cm2, LSC for Total Hip = 0.027 g/cm2 Clinical Information Provided by Patient: Has had a low trauma fracture Is being treated for osteoporosis Has used the following medications: Vitamin D Has the follow
== END ==
PROVIDERS: PCP Family Medicine; Visit Provider Advanced Practice Midwife
DX: M85.88 Other specified disorders of bone density and structure, other site (principal); M81.0 Age-related osteoporosis without current pathological fracture; M85.852 Other specified disorders of bone density and structure, left thigh; M85.851 Other specified disorders of bone density and structure, right thigh
CPT/HCPCS: 77080

== ENCOUNTER 2022-03-28 11:02 | Emergency (ER) | payer MEDICARE, BC, SELFPAY ==
--- NOTE | ~2022-03-28 | US_ITS ---
EXAMINATION: US venous doppler LE RT DATE: 03/28/2022 13:41 INDICATION: Right lower limb pain TECHNIQUE: Grayscale ultrasound images without and with compression and Doppler ultrasound images of the right lower extremity veins were obtained. COMPARISON: None. FINDINGS: The visualized portions of right common femoral vein, profunda (deep) femoral vein, femoral vein, pop liteal vein, peroneal trunk, posterior tibial veins, peroneal veins, gastrocnemius vein and greater s aphenous vein outflow are patent. IMPRESSION: 1. No deep venous thrombosis in the right lower limb. Reviewed, dictated and finalized at location A. 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
--- NOTE | ~2022-03-28 | CT_ITS ---
Non-contrast CT scan of the Abdomen and Pelvis Clinical indication: Abdominal pain Technique: 5 mm axial scans were obtained through the abdomen and pelvis without intravenous or oral contrast. Dose reduction technique was used on this scan by utilizing automated exposure control and iterative reconstruction technique. The dose-length product (DLP) was 211.72 mGy-cm. Findings: Images through the lung bases reveal no abnormalities. There is no evidence of renal or ureteral calculi. The kidneys and the ureters are nondilated. The liver, spleen, pancreas, and adrenals appear normal. Cholecystectomy clips are present. There is no aortic aneurysm. There is no evidence of bowel obstruction. No evidence of ileus appendicitis. Images through the pelvis were performed. There is no evidence of ascites or lymphadenopathy. Urinary bladder unremarkable. Patient is post hysterectomy. No pelvic mass identified. No ascites. Impression: No significant abnormality identified. Reviewed, dictated and finalized at [facility]. 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
[2022-03-28 11:41] VITALS: BP 86/31; PULSE 112; RESP 16; TEMP 37.1; O2SAT 99
[2022-03-28 12:33] VITALS: BP 93/54; PULSE 58; RESP 20; O2SAT 98
[2022-03-28] MEDS: KETOROLAC 15 MG/ML VIAL (*BKC) IV PUSH (12:46)
[2022-03-28] MEDS: SODIUM CHLORIDE 0.9% IV 1,000 ML 999 ML IV CONT (12:46)
[2022-03-28 13:03] LABS: Alanine Aminotransferase 20 U/L (6-35); Albumin Level 3.7 g/dL (3.5-5.1); Alkaline Phosphatase 69 U/L (38-126); Anion Gap 6 mmol/L (8-16); Aspartate Amino Transferase 27 U/L (14-36); Bilirubin,Total 0.6 mg/dL (0.2-1.3); Blood Urea Nitrogen 15 mg/dL (7-17); Calcium 9.1 mg/dL (8.4-10.2); Carbon Dioxide 27 mmol/L (22-30); Chloride 105 mmol/L (98-107); Creatine Kinase 35 U/L (30-135); Estimated CRCL calculation 43 ml/min; Estimated Glomerular Filt Rate > 60; Glucose 104 mg/dL (65-110); Potassium 4.4 mmol/L (3.4-5.0); Sodium 138 mmol/L (137-145)
[2022-03-28 13:06] LABS: Partial Thromboplastin Time 29.6 SECONDS (22.3-36.8)
[2022-03-28 13:24] LABS: Basophils Percent Auto 0.2 % (0.2-1.2); Hematocrit 34.3 % (37.0-47.0); Hemoglobin 11.2 g/dL (12.0-15.0); Immature Granulocyte Absolute 0.02 K/mm3 (0.00-0.031); Immature Granulocyte Percent A 0.4 % (0-0.5); Lymphocytes Absolute Auto 0.46 K/mm3 (0.9-3.2); Lymphocytes Percent Auto 8.4 % (18.3-44.2); Mean Corpuscular HGB Conc 32.7 g/dl (32-36); Mean Corpuscular Hemoglobin 29.9 pg (26-34); Mean Corpuscular Volume 91.5 fl (80-100); Mean Platelet Volume 10.3 fl (7.4-10.4); Monocytes Absolute Auto 0.8 K/mm3 (0.1-0.6); Monocytes Percent Auto 14.5 % (2.6-8.5); Neutrophils Absolute Auto 4.2 K/mm3 (1.3-6.7); Neutrophils Percent Auto 76.5 % (45.5-73.1); Platelet Count Result 175 k/mm3 (150-375); Red Blood Count 3.75 M/mm3 (4.2-5.4); Red Cell Distribution Width 13.2 % (11.5-14.5); White Blood Count 5.5 K/mm3 (4.5-10.0)
[2022-03-28 13:31] LABS: INR 1.4; Prothrombin Time 16.9 Seconds (11.1-14.7)
[2022-03-28 14:02] VITALS: PULSE 61; RESP 18; O2SAT 97
--- NOTE | 2022-03-28 14:31 | ED.EXTPRO ---
HPI - Extremity Problem General Chief complaint: Extremity Problem,Nontraumatic Stated complaint: leg/groin pain, SOB Time Seen by Provider: 03/28/22 12:22 History of Present Illness HPI Narrative: Pt complains of dull ache in right groin and back of right leg to knee since last night. Pt denies injury. Pt says the pain is severe and she was unable to sleep due to pain. Pt denies abdominal pain or back pain. Pt says she has had covid for 10 days. Related Data Home Medications Medication Instructions Recorded Confirmed apixaban 5 mg tablet (Eliquis) 5 mg PO BID 03/23/19 01/13/22 flecainide 100 mg tablet 100 mg PO Q12H 03/23/19 01/13/22 cyanocobalamin (vitamin B-12) 1,000 mcg PO DAILY 01/07/21 01/13/22 1,000 mcg tablet cholecalciferol (vitamin D3) 50 2,000 unit PO DAILY 06/05/21 01/13/22 mcg (2,000 unit) capsule rhondaa BYNAVEEN . q.h.s. 06/05/21 01/13/22 metoprolol succinate 25 mg 12.5 mg PO . Q.a.m. 10/16/21 01/13/22 tablet,extended release 24 hr trimethoprim 100 mg tablet 100 mg PO QHS 11/01/21 01/13/22 Allergies Allergy/AdvReac Type Severity Reaction Status Date / Time codeine Allergy Severe TONGUE Verified 01/13/22 13:17 SWELLS iodine Allergy Severe TONGUE Verified 01/13/22 13:17 SWELLS, HIVES hydrocodone Allergy Intermediate ITCHY, Verified 01/13/22 13:17 RASH, VOMITING meperidine Allergy Intermediate RASH, Verified 01/13/22 13:17 VOMITING Penicillins Allergy Intermediate RASH Verified 01/13/22 13:17 propoxyphene Allergy Unknown Other Verified 01/13/22 13:17 Review of Systems Review of Systems: All systems reviewed & are unremarkable except as noted in HPI and below PMFSH Past Medical History Medical History (Updated 03/28/22 @ 14:46 by Artie Ricci III, DO) Actinic keratosis Acute non-recurrent maxillary sinusitis Anemia hemoglobin normal at 12.0 on 01/05/2021. Hemoglobin 12.1 11/05/2021. Hemoglobin 11.5 on 01/06/2022. Arthritis BMI 20.0-20.9, adult Body mass index (BMI) of 19 or less in adult Chronic anxiety Chronic atrial fibrillation Chronic depression Chronic interstitial cystitis Chronic leukopenia WBC 2.7 with platelets 140 on 07/11/2019 with WBC 2.8, hemoglobin 12, and platelets 140 on 01/05/2021. WBC 3.1, hemoglobin 12.1, platelets 168 on 11/05/2021. Chronic low back pain with right-sided sciatica Chronic neck pain Chronic obstructive pulmonary disease, unspecified normal pulmonary function study on 08/30/2020 with mild small- airway reversibility Chronic thoracic back pain Generalized headaches GERD (gastroesophageal reflux disease) Heart disease Insomnia Neoplasm of skin of upper arm (08/07/20) benign verrucous keratosis Neutropenic disorder Osteoarthritis involving multiple joints on both sides of body Osteoporosis T-score -2.1 at the spine, -2.9 left femoral neck and -2.1 the right femoral neck on 10/25/2021. Polyp of colon (09/03/20) multiple tiny colon polyps on colonoscopy 09/03/[address] Huynh. Recheck in 5 years Renal stone Vitamin B12 deficiency anemia vitamin B12 low at 337 with folic acid normal 19.1 on 01/05/2021 Vitamin D deficiency, unspecified (~01/05/21) Vitamin-D level low at 26.2 on 01/05/2021. Level normal at 48.6 on 11/05/2021. Surgical History Surgical History H/O cardiac radiofrequency ablation H/O left wrist surgery H/O prior ablation treatment H/O: hysterectomy (~1982) History of appendectomy (~1973) History of nasal surgery (~2015) History of shoulder surgery (Unknown) right History of toe surgery Hx of cholecystectomy (~1973) Family History Family History Father Carcinoma of colon Mother Family history of malignant neoplasm of breast in first degree relative Family history of malignant neoplasm Grandparent Family history of malignant neoplasm of stomach Other Family history of pa
[2022-03-28 15:12] VITALS: BP 107/58; PULSE 61; RESP 20; O2SAT 97
== END 2022-03-28 15:13 | disposition home or self-care (01) ==
PROVIDERS: Emergency Provider Emergency Medicine; PCP Family Medicine
DX: R10.31 Right lower quadrant pain (principal); M79.651 Pain in right thigh; I48.20 Chronic atrial fibrillation, unspecified; J44.9 Chronic obstructive pulmonary disease, unspecified; N30.10 Interstitial cystitis (chronic) without hematuria; K21.9 Gastro-esophageal reflux disease without esophagitis; M19.90 Unspecified osteoarthritis, unspecified site; M81.0 Age-related osteoporosis without current pathological fracture; D51.9 Vitamin B12 deficiency anemia, unspecified; E55.9 Vitamin D deficiency, unspecified; Z85.828 Personal history of other malignant neoplasm of skin; Z87.442 Personal history of urinary calculi; Z79.01 Long term (current) use of anticoagulants; Z90.710 Acquired absence of both cervix and uterus
CPT/HCPCS: 36415; 74176; 80053; 82550; 85025; 85610; 85730; 93971; 96361; 96374; 99284; J1885; J7030

== ENCOUNTER → 2022-11-27 10:47 | Outpatient (CLI) | payer MEDICARE, BC, SELFPAY ==
--- NOTE | ~2022-11-27 | MM_ITS ---
EXAMINATION: MM screening celio BI w carlos HISTORY: Screening mammogram, family history of breast cancer in her mother. TECHNIQUE: Craniocaudal and mediolateral oblique 3-D tomosynthesis images were obtained and synthetic 2-D images were generated. CAD analysis was submitted and interpreted. COMPARISON: 09/18/2021, 07/20/2020, 06/25/2020, 05/02/2019 BREAST PARENCHYMAL COMPOSITION: There are scattered areas of fibroglandular density. FINDINGS: No suspicious mass, calcification, or architectural distortion are identified in either nehemias ast to suggest malignancy. There has been no suspicious interval change. IMPRESSION: 1. No mammographic evidence of malignancy. 2. Recommend routine screening mammography in one year. BI-RADS Category 1: Negative Reviewed, dictated and finalized at location A.
== END ==
PROVIDERS: PCP Family Medicine; Visit Provider Advanced Practice Midwife
DX: Z12.31 Encounter for screening mammogram for malignant neoplasm of breast (principal)
CPT/HCPCS: 77063; 77067

== ENCOUNTER 2023-12-02 10:34 | Outpatient (CLI) | payer MEDICARE, BC, SELFPAY ==
--- NOTE | ~2023-12-02 | MM_ITS ---
EXAMINATION: MM screening celio BI w carlos HISTORY: Screening TECHNIQUE: Craniocaudal and mediolateral oblique 3-D tomosynthesis images were obtained and synthetic 2-D images were generated. CAD analysis was submitted and interpreted. COMPARISON: Comparison to multiple prior studies sequentially, with oldest reviewed study dated 10/2019. BREAST PARENCHYMAL COMPOSITION: Not dense: There are scattered areas of fibroglandular density. FINDINGS: There is no evidence of suspicious mass, calcification, or architectural distortion to sugg est malignancy in either breast. There has been no suspicious interval change. IMPRESSION: 1. No mammographic evidence of malignancy. 2. Recommend routine screening mammography in one year. BI-RADS Category 1: Negative Reviewed, dictated and finalized at location B.
== END 2023-12-02 10:35 | disposition home or self-care (01) ==
LOC: MICIMG 10:35
PROVIDERS: PCP Family Medicine; Visit Provider Family Medicine
DX: Z12.31 Encounter for screening mammogram for malignant neoplasm of breast (principal)
CPT/HCPCS: 77063; 77067

== ENCOUNTER 2024-05-16 10:41 | Outpatient (CLI) | payer MEDICARE, BC, SELFPAY ==
--- NOTE | ~2024-05-16 | XR_ITS ---
EXAMINATION: XR hand RT min 3V DATE: 05/16/2024 11:07 INDICATION: Pain at the base of the right thumb. Tendon surgery around right first metacarpal. TECHNIQUE: 4 views of right hand were obtained. COMPARISON: Right thumb radiographs 03/13/2004 FINDINGS: Trapezium is absent. There are small fragments of heterotopic ossification in this area. No acute fracture. There is mild osteoarthritis of second distal interphalangeal joint and moderate ost eoarthritis of fifth distal interphalangeal joint. IMPRESSION: 1. Changes of first carpometacarpal interposition arthroplasty. 2. Polyarticular osteoarthritis. Reviewed, dictated and finalized at location A.
--- OUTSIDE RECORDS SUMMARY | 2024-05-16 12:35 | XMS_ITS | Referral Summary ---
Author Organization [facility] Address [address] [place] [address] Care Team Providers Care Authorization Coordinator Name Role Phone Karl Flores MD Unavailable [phone] Karl Flores MD Primary Care Provider [phone] Encounters Date Type Department Care Team Description 03/28/2024 11:45 AM WORK MEASUREMENT ENGINEER Lab [facility] Endocrinology Metabolism and Lipid [address] [place] [address] [place] [address] High risk medication use 03/28/2024 11:30 AM WORK MEASUREMENT ENGINEER Office Visit [facility] Cardiology [address] [place] [address] [place] [address] Courtney Kearns NP High risk medication use (Primary Dx) from Last 3 Months Allergies Active Allergy Reactions Criticality Noted Date Comments Acetaminophen Rash Medium 04/22/2016 Ampicillin Codeine Fentanyl Hydrocodone Stomach upset Reaction: GI UPSET, Iodinated Contrast Media Swelling Medium 01/19/2019 Meperidine Penicillins Other (See comments) Reaction: OTHER REACTION, Propoxyphene Tramadol Stomach upset Reaction: GI UPSET, , Medications ergocalciferol (VITAMIN D2) 50,000 unit capsule take 1 capsule by oral route every week 0 2 Active Additional Information Patient taking differently: 2,000 Units oral Daily, Reported on 03/28/2024 PARoxetine (PAXIL) 40 mg tablet take 1 tablet (40MG) by oral route every day 0 2 Active atorvastatin (LIPITOR) 10 mg tablet take 1 tablet (10MG) by oral route every day 0 2 Active propylene glycol (Systane Balance) 0.6 % drops Administer into affected eye(s) 2 (two) times a day Active LORazepam (ATIVAN) 0.5 mg tablet Take by mouth nightly 1 Active omeprazole (PriLOSEC) 20 mg capsule daily 1 Active azelastine (ASTELIN) 137 mcg (0.1 %) nasal spray spray 2 spray by intranasal route 2 times every day in each nostril as needed Active cyanocobalamin (Vitamin B-12) 1,000 mcg tablet Indications: supplement. Take one every day Active trimethoprim (TRIMPEX) 100 mg tablet trimethoprim 100 mg tablet TAKE 1 TABLET BY MOUTH EVERY DAY 2 Active busPIRone (BUSPAR) 5 mg tablet Take 1 tablet (5 mg total) by mouth 3 (three) times a day Active fluticasone propionate (FLONASE) 50 mcg/actuation nasal spray SHAKE LIQUID AND USE 1 SPRAY IN EACH NOSTRIL TWICE DAILY 2 Active ketotifen (ZADITOR) 0.025 % ophthalmic solution 1 drop(s), Both eyes, [id number], 7.5 mL, 0 3 Active Eliquis 5 mg tablet TAKE 1 TABLET(5 MG) BY MOUTH TWICE DAILY 60 tablet 11 4 Active flecainide (TAMBOCOR) 100 mg tablet Take 1 tablet (100 mg total) by mouth 2 (two) times a day 180 tablet 1 5 Active metoprolol XL (TOPROL-XL) 25 mg extended release tablet Take 1 tablet (25 mg total) by mouth daily 15 tablet 11 5 Active Active Problems Problem Noted Date Diagnosed Date COPD (chronic obstructive pulmonary disease) High risk medication use 01/19/2019 Skin neoplasm 2015 Keratosis, senilis 2015 Mixed anxiety depressive disorder 11/12/2012 Overview (05/30/2016): Anxiety and depression History of anesthesia problem 11/12/2012 Overview (05/30/2016): History of anesthesia reaction Atrial fibrillation 11/12/2012 Overview (05/30/2016): SVT (supraventricular tachycardia) Osteoporosis 11/12/2012 Overview (05/30/2016): Osteoporosis Arthralgia of hip 06/04/2011 Social History Tobacco Use Types Packs/Day Years Used Date Smoking Tobacco: Never Smokeless Tobacco: Never Alcohol Use Standard Drinks/Week Comments No 0 (1 standard drink = 0.6 oz pur e alcohol) Comments Unknown Sex and Gender Information Value Date Recorded Sex Assigned at Not on file Legal Sex Female 2:06 AM WORK MEASUREMENT ENGINEER Gender Identity Not on file Sexual Orientation Not on file Last Filed Vital Signs Vital Sign Reading Time Taken Comments Blood Pressure 96/60 03/28/2024 11:27 AM WORK MEASUREMENT ENGINEER Pulse 53 03/28/2024 11:27 AM WORK MEASUREMENT ENGINEER Temperature 36.6 C (97.8 F) 12/06/2020 1:13 PM CDT Respiratory Rate - - Oxygen Saturation 98% 03/28/2024 11:27 AM WORK MEASUREMENT ENGINEER Inhaled Oxygen Concentration - - Weight 57.2 kg (126 lb 3.2 oz) 03/28/2024 11:27 AM WORK MEASUREMENT ENGINEER Height 162.6 cm (5' 4 ) 03/28/2024 11:27 AM WORK MEASUREMENT ENGINEER Body Mass Index 21.66 03/28/2024 11:27 AM WORK MEASUREMENT ENGINEER Plan of Treatment Not on file Procedures Procedure Name Priority Date/Time Associated Diagnosis Comments COMPREHENSIVE METABOLIC PANEL Routine 03/28/2024 11:46 AM WORK MEASUREMENT ENGINEER High risk medication use ECG 12-LEAD Routine 03/28/2024 11:24 AM WORK MEASUREMENT ENGINEER High risk medication use from Last 3 Months Results * Comprehensive metabolic panel (03/28/2024 11:46 AM WORK MEASUREMENT ENGINEER) Total Protein 6.9 6.1 - 8.4 g/dL [facility] Albumin 4.5 3.5 - 5.2 g/dL [facility] Calcium 9.9 8.6 - 10.3 mg/dL [facility] BUN 15 7 - 23 mg/dL [facility] Total Bilirubin 0.39 0.20 - 1.40 mg/dL [facility] Alk Phos, Total 80 35 - 129 IU/L [facility] AST (SGOT) 21 11 - 47 IU/L [facility] ALT (SGPT) 14 6 - 53 IU/L [facility] Creatinine 0.96 0.60 - 1.10 mg/dL [facility] Sodium 140 135 - 145 mmol/L [facility] Potassium 4.2 3.3 - 5.1 mmol/L [facility] Chloride 103 95 - 107 mmol/L [facility] CO2 Content 26 21 - 29 mmol/L [facility] Glucose 78 64 - 99 mg/dL [facility] Comment: NONFASTING GLUCOSE RANGE = 64-199 mg/dL FASTING GLUCOSE 64 - 99 = NORMAL FASTING GLUCOSE 100 - 125 = IMPAIRED FASTING GLUCOSE FASTING GLUCOSE >=126 = PROVISIONAL DIAGNOSIS OF DIABETES eGFR 61.7 >60.0 mL/min/1.7 3 m2 [facility] Blood 03/28/2024 11:4 6 AM WORK MEASUREMENT ENGINEER 03/28/2024 12:57 PM WORK MEASUREMENT ENGINEER Courtney Kearns NP LAB BLOOD ORDERABLES Fin al Result [facility] * ECG 12 lead (03/28/2024 11:24 AM WORK MEASUREMENT ENGINEER) Courtney Kearns MANAGER POKER ECG ORDERABLES Edited R esult - Final from Last 3 Months Insurance MEDICARE [facility] FEDERAL MEDICARE [facility] ACCESS MEDICARE Care Teams Authorization Coordinator Relationship Specialty Start Date End Date Karl Flores MD [address] [place] [id number] PCP - General Family Medicine 01/19/19 Karl Flores MD [id number] [address] Referring Physician Family Medicine 01/19/19
--- OUTSIDE RECORDS SUMMARY | 2024-05-16 12:35 | XMS_ITS | Clinical Summary ---
Author Organization [facility] Address [address] [place] [address] Care Team Providers Care Manager Transportation Name Role Phone Karl Flores MD Unavailable [phone] Karl Flores MD Primary Care Provider [phone] Allergies Active Allergy Reactions Criticality Noted Date [...] % ophthalmic solution 1 drop(s), Both eyes, [id number], 7.5 mL, 0 3 Active Eliquis 5 [...] Overview (05/30/2016): Osteoporosis Arthralgia of hip 06/04/2011 Encounters Date Type Department Care Team Description 03/28/2024 11:45 AM PACKAGE SORTER Lab [facility] Endocrinology Metabolism and Lipid [address] [place] [address] [place] [address] High risk medication use 03/28/2024 11:30 AM PACKAGE SORTER Office Visit [facility] Cardiology [address] [place] [address] [place] [address] Courtney Kearns NP High risk medication use (Primary Dx) from Last 3 Months Surgical History Surgery Date Site/Laterality Comments ABLATION OF AFIB FLUTTER Medical History Medical History Date Comments Hx Other Medical gallbladder rem flaquito Hx Other Medical Appendectomy Hx Other Medical Hysterectomy Hx Other Medical shoulder surger y Hx Other Medical septoplasty Atrial fibrillation (HCC) Lupus COPD (chronic obstructive pulmonary disease) (HC C) Heart valve disease Family History Medical History Relation Name Comments Cancer Other 1 Family history of Cancer; Diabetes Other 2 Family history of Diabetes mellitus; Relation Name Status Comments Other 1 Other 2 Social History Tobacco Use Types Packs/Day Years Used Date Smoking Tobacco: Never Smokeless Tobacco: Never Alcohol Use Standard Drinks/Week Comments No 0 (1 standard drink = 0.6 oz pur e alcohol) Comments Unknown Sex and Gender Information Value Date Recorded Sex Assigned at Not on file Legal Sex Female 2:06 AM PACKAGE SORTER Gender Identity Not on file Sexual Orientation Not on file Obstetrics History Last Filed Vital Signs Vital Sign Reading Time Taken Comments Blood Pressure 96/60 03/28/2024 11:27 AM PACKAGE SORTER Pulse 53 03/28/2024 11:27 AM PACKAGE SORTER Temperature 36.6 C (97.8 F) 12/06/2020 1:13 PM CDT Respiratory Rate - - Oxygen Saturation 98% 03/28/2024 11:27 AM PACKAGE SORTER Inhaled Oxygen Concentration - - Weight 57.2 kg (126 lb 3.2 oz) 03/28/2024 11:27 AM PACKAGE SORTER Height 162.6 cm (5' 4 ) 03/28/2024 11:27 AM PACKAGE SORTER Body Mass Index 21.66 03/28/2024 11:27 AM PACKAGE SORTER Plan of Treatment Health Maintenance Due Date Last Done Comments Colon Cancer Screening-Colonoscopy 1950 Depression Screening 1950 Fall Risk Assessment 1950 Hepatitis C Screening 1950 Osteoporosis Screening-Bone Density Scan 1950 DTaP/Tdap/Td Vaccine (1 - Tdap) 1960 Hepatitis B Screening 1967 Pneumococcal vaccine 65+ (1 of 2 - PCV) 1968 Zoster Vaccine (1 of 2) 1999 Well Visit 65+ 2014 Influenza Vaccine (#1) 2023 5, 11/02/2013, 11/09/2012, Additional history exists Procedures Procedure Name Priority Date/Time Associated Diagnosis Comments COMPREHENSIVE METABOLIC PANEL Routine 03/28/2024 11:46 AM PACKAGE SORTER High risk medication use ECG 12-LEAD Routine 03/28/2024 11:24 AM PACKAGE SORTER High risk medication use from Last 3 Months Results * Comprehensive metabolic panel (03/28/2024 11:46 AM PACKAGE SORTER) Total Protein 6.9 6.1 - 8.4 g/dL [...] [facility] Blood 03/28/2024 11:4 6 AM PACKAGE SORTER 03/28/2024 12:57 PM PACKAGE SORTER us Courtney Kearns TOOL AND DIE REPAIRER LAB BLOOD ORDERABLES Fin al Result [facility] * ECG 12 lead (03/28/2024 11:24 AM PACKAGE SORTER) us Courtney Kearns TOOL AND DIE REPAIRER ECG ORDERABLES Edited R esult - Final from Last 3 Months [place] [address] [facility] Address: [address] [place] [address] [address] [place] [place] [address] ACCESS MEDICARE Care Teams Manager Transportation Relationship Specialty Start Date End Date Karl Flores MD [address] [id number] PCP - General Family Medicine 01/19/19 Karl Flores MD [id number] [address] Referring Physician Family Medicine 01/19/19
--- OUTSIDE RECORDS SUMMARY | 2024-05-16 12:35 | XMS_ITS | Data Portability ---
Author Organization [place] [facility], Main Office Address [address] [place] [address] Care Team Providers Care Patient Care Representative Name Role Phone RISHABH MORFIN Primary Care Provider RISHABH MORFIN Referring Provider [phone] Assessment Encounter Date Assessment Date Assessment LastModified by Organization Details LastModified Time 10/21/2023 10/21/2023 73-year-old female presents for follow-up for bilateral thumbs. She has CMC arthritis bilaterally, and the right hand is getting worse. She previously had a cortisone injection which helped but has worn off, and also has been wearing braces. She currently rates her pain as 7/10. She has tenderness at the bilateral thumb CMC, positive grind. Sensation intact light touch, brisk cap refill, 2+ radial pulse bilaterally. X-rays reviewed, demonstrating bilateral thumb CMC arthritis, worse on the right Both of her thumbs are getting worse. She feels like she is ready for surgery on the right, and also requested a cortisone injection on the left, which she tolerated well. Risks, benefits, and alternatives to surgery were discussed with the patient. Risks include but are not limited to pain, stiffness, infection, bleeding, blood clot, injury to other structures including nerves or blood vessels, need for future surgery, and anesthesia risks. We discussed the goal of surgery is to improve symptoms but there is no guarantee of improvement and it is possible the patient's condition is worse after surgery. Patient agreed and would like to proceed. Not available 10/22/2023 22:55:18 12/15/2023 12/15/2023 73-year-old patient presents today for 1st postop follow-up after right CMC interposition arthroplasty on 12/03/[address] Springer. She states she is doing okay overall, 9/10 pain. She states that the hand has been swollen and painful over the weekend. She has been taking ibuprofen and Tylenol for the pain, which helps. She presents today in the splint put on after surgery. Physical exam: Splint was removed. Incisions are clean dry and intact without signs and symptoms of infection. Suture tails were trimmed and new Steri-Strips were placed. Tenderness with palpitation around incision sites. Pain with gentle wrist flexion and extension, thumb ROM. Bruising and edema throughout, bruising down to the fingertips. Able to wiggle fingers. Sensation intact. Today we will place her in a thumb spica brace. She should wear this at all times except for hygiene. We discussed that she no longer needs to wear the sling as she should start to get the elbow and shoulder moving. We discussed incisional care. For pain she can continue to alternate ibuprofen and Tylenol, ice, and elevate. We will see her back in 4 weeks for recheck. Not available 12/15/2023 12:50:59 01/13/2024 01/13/2024 HPI: 73 year old patient presents today for a post-op follow-up. She is 5 weeks post-op from a right CMC interposition arthroplasty on 12/03/[address] Springer. She states she is doing better and noticed improvement in pain. Rates pain today as 3/10. She has been taking Tylenol and ibuprofen as needed for pain. She has been coming out of her thumb spica for hygiene and doing gentle wrist ROM. Physical Exam: General: Normal appearance. No acute distress. Inspection: Sterri Strips were still on. Two were removed today, with one left on. Incision is healing well, no sign of infections. No evidence of swelling, erythema, or bruising. Palpation: No tenderness to palpation. ROM: Limited ROM due to stiffness. Mild pain with wrist and thumb ROM. Normal finger ROM. Sensation: Upper extremity sensation intact. Assessment & Plan: She can start to slowly wean out of the thumb spica. She should continue to wear the thumb spica with vigorous hand activities. Ordered occupational therapy. To help regain function and ROM. Continue Tylenol as needed for pain. Advised to take Tylenol for pain and try to avoid ibuprofen as she is on a blood thinner and GI upset with NSAIDs. All questions were answered. Patient verbalized understanding of treatment plan Follow Up: Follow up in 6 weeks with xray. At this time we will see how she has been doing with OT. [email or web address] Not available 01/13/2024 15:01:25 03/02/2024 03/02/2024 73 year old patient presents today for a post-op follow-up from right CMC interposition arthroplasty on 12/03/[address] Springer. She states she is doing better and noticed improvement in pain. Rates pain today as 3/10. She has been taking Tylenol and ibuprofen as needed for pain. She has been attending OT, which she feels is helping. Today she has complaints of sensitivity on the back of the hand and along pinky finger. She also states that her OT said there is fluid build up at the thumb under the incision site. Imaging: Xrays today show no acute bony abnormality or fracture. Surgical changes at CMC. Physical Exam: No pain with thumb ROM. Pain and stiffness with wrist ROM. Able to make a fist. Minimal edema at incision site. No pain with palpitation. Sensitivity with light touch over back of hand and along side of pinky. Positive tinels at elbow. We will have her continue with OT exercises to increase strength and ROM. She can continue to take tylenol for pain. We discussed that for the sensitivity she could continue to rub it to desensitize and take vitamin C supplements. We discussed the sensitivity in the pinky could be coming from nerve entrapment at the elbow and that sleeping with the arm straight may help. We no longer need to see her back for post op visits, we can see her as needed for pain or if she would like to continue therapy. She is in agreement with this plan. Not available 03/02/2024 15:16:47 04/20/2024 04/20/2024 74-year-old female presents for follow-up of her right hand status post CMC arthroplasty with interposition of tendon on 12/03/2023. Recently she develops an area of swelling around the incision site and reported having some weakness with gripping and using her hand. X-rays demonstrate subsidence of the metacarpal with minimal space between the metacarpal and the scaphoid On exam she has approximately 15 x 25 mm area of swelling over the incision. This feels firm rather than fluid filled. She has no pain with grind. She does have weakness with pinch and gripping. Based on the x-ray findings and her weakness in her hand, she has had subsidence of the 1st metacarpal which is causing her weakness. We discussed next steps include discussion of possible revision CMC arthroplasty with resuspension of the 1st metacarpal to restore biomechanics. I would likely refer her to a hand specialist who can give her a 2nd opinion on this. She wants to continue with physical therapy does not want to consider another procedure at this point. We will have her continue her current course of physical therapy and see how she does. She if she has persistent symptoms, we will see her back to have the same discussion of next steps. Follow up in 2 months, or sooner as needed. Not available 04/20/2024 23:37:40 Plan of Treatment Reminders Order Date Submit Date Provider Last Modified By Organization Details Last Modified Time Details Appointments Any 5 2024 01:00P Ginny Springer MD Not available Not available Not available Lab None recorded. Referral physical therapist referral - R hand continuat ion of therapy 2024 025 [email or web address] [facility], [address], [place], [place], [address], 04/21/2024 08:55:41 physical therapist referral - patient to schedule 2023 024 [email or web address] [facility] [place] [facility], [address], [place], [address], 01/13/2024 22:45:20 Procedures injection /aspirati on joint/bur sa (PROC) 2023 024 [email or web address] In-Office Order, Internal Use Only DO Not Attach Compendium DO Not Attach Compendium, Do Not Delete/merge, [id number] 10/21/2023 15:01:46 Surgeries None recorded. Imaging XR, hand, 3 or more view 2024 025 [email or web address] [facility] [place] [place], [address], [place], [address], 03/03/2024 23:54:52 Medication Orders bupivacai ne HCl 0.5 % (5 mg/mL) injection solution [address] [id number], [address] [place], [place], [id number], 10/22/2023 21:33:07 Kenalog 10 mg/mL suspensio n for injection [address] [id number], [address] [place], [place], [phone], 10/22/2023 21:33:07 Patient TargetsNo targets recorded. Patient InstructionsNo instructions recorded. Reason for Referral Physical Therapist Referral for Arthritis of first carpometacarpal joint of right hand patient to schedule Referring Physician: Sandy Varma, Orthopedic Surgery, Encounter Date: 01/13/2024 Physical Therapist Referral for Arthritis of first carpometacarpal joint of right hand R hand R hand continuation of therapy Referring Physician: Sridhar Springer, Orthopedic Surgery, Encounter Date: 04/20/2024 Results Created Date Observation Date Name Description Value Unit Range Abnormal Flag Note LastModifiedBy Organization Detail LastModifiedTime 03/02/19 25 XR, hand, 3 or more view No observ ation record ed. [email or web address] [facility] [place] [address], [place], [address], 03/02/2024 14:16:44 Result Notes None recorded. Problems Name Problem SNOMED Code Status Onset Date Resolution Date Notes Provider Name and Address Organization Details Recorded Time Disorder of shoulder 888776158 Active Not Available [facility] 3 02:39:42 Enthesopat hy of hip region 71490622 Active Not Available [facility] 3 02:39:42 Bicipital tenosynovi tis 91693277 Active Not Available [facility] 3 02:39:42 Disorder of rotator cuff 454848284 Active Not Available [facility] 3 02:39:43 Hip pain 17772358 Active Not Available [facility] 3 02:39:43 Disorder of bursa of shoulder region 08428476 Active Not Available [facility] 3 02:39:43 Degenerati ve joint disease of shoulder region 38992658 Active Not Available [facility] 3 02:39:43 Recurrent urinary tract infection 107111177 Active 2022 Mj Mcqueen MD [address], [address], [place], [address] , [facility] 3 12:13:51 Pain in right hand 7922442053527 09 Active 2022 OLI Moura null, MD - [facility] 3 14:51:07 Pain of bilateral hands 5861794398086 9109 Active 2023 МАРИНА Coello null, [facility] 4 14:29:04 Trigger thumb of right hand 6084359822190 05 Active 2023 Dina Chavez CNA null, [facility] 4 15:21:10 Arthritis of first carpometac arpal joint of right hand 5606068913807 100 Active 2023 Sridhar Springer MD [address], [address], [place], [address] , [facility] 4 17:16:38 Pain of left hand 6549823777930 03 Active 2023 МАРИНА Coello null, [facility] 4 14:48:48 Problem Notes None recorded. Procedures Surgical History Date Name Laterality Status Provider Name and Address Organization Details Recorded Time 10/21/19 Ortho - Cortisone Injection completed Sridhar Springer MD [address], [address], [place], [address], [facility] 10/22/2023 22:55:33 03/18/19 Ortho - Cortisone Injection completed Sridhar Springer MD [address] [facility], [address], [place], [address], [place] [facility] 04/29/2023 22:21:05 12/18/19 23 Ortho - Cortisone Injection completed Sridhar Springer MD [address], [address], [place], [address], [place] [facility] 12/19/2022 10:46:11 Nose completed Ina Francoeur, ATC L [place] [facility] 12/17/2022 14:59:58 Nose completed Ina Francoeur, ATC L [place] [facility] 12/17/2022 14:59:59 Nose completed Ina Francoeur, ATC L [place] [facility] 12/17/2022 15:00:00 Foot Surgery completed Ian Obrienoerich, ATC L [place] [facility] 12/17/2022 15:00:13 Foot Surgery completed Ina Francoeur, ATC L [place] [facility] 12/17/2022 15:00:15 Gallbladder Surgery completed Ina Francoeur, ATC L [place] [facility] 12/17/2022 15:01:16 Hysterectomy completed Ina Francoerich, ATC L [place] [facility] 12/17/2022 15:01:27 thumb surgery completed Ina Obrienoerich, ATC L [place] [facility] 12/17/2022 15:02:11 procedure on wrist completed Ina Obrienoerich, ATC L [place] [facility] 12/17/2022 15:02:57 Imaging Results Imaging Date Name Status LastModified by Organiz ation Details LastModified Time 03/02/2024 XR, hand, 3 or more view completed [email or web address] [facility] [place] [address], [place], [address], 03/02/2024 14:16:44 Procedure Notes None recorded. Medical Equipment None Reported. Allergies Allergen ID Allergen Name Allergen Category Reaction Reaction Severity Criticality Documentation Date Start Date Code Code System Note Provider Name and Address Organization Details Recorded Time 3565 tramadol medicatio n Not available Not available Not available 04/23/2022 73005 RxNorm Not Available [facility] 3 02:46:26 3566 fentanyl medicatio n Not available Not available Not available 04/23/2022 4337 RxNorm Not Available [facility] 3 02:46:26 3567 Demerol medicatio n Not available Not available Not available 04/23/2022 03062 1 RxNorm Not Available [facility] 3 02:46:26 3568 codeine medicatio n Not available Not available Not available 04/23/2022 2670 RxNorm Not Available [facility] 3 02:46:26 Medications Name Sig Start Date Stop Date Status Note LastModified by Organization Details LastModified Time cyclobenzap rine 10 mg tablet TAKE 1 TABLET BY MOUTH EVERY 6 HOURS NEEDED FOR MUSCLE SPASM active Not Available Not Available No t Available buspirone 5 mg tablet TAKE 1 TABLET BY MOUTH THREE TIMES DAILY active Not Available Not Available No t Available Vitamin C 500 mg tablet TAKE 2 TABLETS BY MOUTH ONCE DAILY. active Not Available Not Available No t Available atorvastati n 10 mg tablet TAKE 1 TABLET BY MOUTH DAILY active Not Available Not Available No t Available azithromyci n 250 mg tablet 03/03 completed Not Available Not Available Not Available valacyclovi r 1 gram tablet 03/14 completed Not Available Not Available Not Available hydrocodone 5 mg-acetamin ophen 325 mg tablet TAKE 1 TABLET BY MOUTH EVERY 6 HOURS NEEDED FOR BREAKTHRO UGH PAIN 01/12 completed Not Available Not Available Not Available meloxicam 15 mg tablet 03/03 completed Not Available Not Available Not Available metoprolol succinate ER 200 mg tablet,exte nded release 24 hr Take 1 tablet every day by oral route. 08/01 completed Not Available Not Available Not Available phenazopyri dine 200 mg tablet 05/30 completed Not Available Not Available Not Available bupivacaine HCl 0.5 % (5 mg/mL) injection solution IN OFFICE 2023 active Not Available Not Available Not Avai lable prednisone 20 mg tablet 03/11 completed Not Available Not Available Not Available alendronate 70 mg tablet Take 1 tablet every week by oral route. 01/11 completed Not Available Not Available Not Available Elmiron 100 mg capsule Take 1 capsule 3 times a day by oral route. 05/30 completed Not Available Not Available Not Available acetaminoph en 300 mg-codeine 30 mg tablet 03/03 completed Not Available Not Available Not Available ciprofloxac in 250 mg tablet TK 1 T PO BID 03/14 completed Not Available Not Available Not Available levofloxaci n 250 mg tablet TAKE 1 TABLET BY MOUTH DAILY 10/19 completed Not Available Not Available Not Available trimethopri m 100 mg tablet TAKE 1 TABLET BY MOUTH DAILY active Not Available Not Available No t Available ciprofloxac in 500 mg tablet Take 1 tablet every 12 hours by oral route. 08/01 completed Not Available Not Available Not Available sulfamethox azole 800 mg-trimetho prim 160 mg tablet TAKE 1 TABLET BY MOUTH EVERY 12 HOURS FOR 10 DAYS 06/27 completed Not Available Not Available Not Available meloxicam 7.5 mg tablet 03/03 completed Not Available Not Available Not Available lorazepam 0.5 mg tablet TAKE 1 TABLET BY MOUTH TWICE DAILY NEEDED FOR ANXIETY active Not Available Not Available No t Available triamcinolo ne acetonide 0.025 % topical cream 06/30 completed Not Available Not Available Not Available Kenalog 10 mg/mL suspension for injection IN OFFICE 2023 active [facility]: [phone]- [phone] Not Available Not Available Not Available phenazopyri dine 100 mg tablet TAKE 1 TABLET BY MOUTH THREE TIMES DAILY FOR 2 DAYS 06/27 completed Not Available Not Available Not Available pantoprazol e 40 mg tablet,julien yed release Take 1 tablet every day by oral route. 03/27 completed Not Available Not Available Not Available flecainide 50 mg tablet 03/11 completed Not Available Not Available Not Available flecainide 100 mg tablet TAKE 1 TABLET BY MOUTH TWICE DAILY active Not Available Not Available No t Available gabapentin 300 mg capsule TAKE 1 CAPSULE BY MOUTH TWICE DAILY 05/30 completed Not Available Not Available Not Available omeprazole 20 mg capsule,del ayed release TAKE 1 CAPSULE BY MOUTH DAILY active Not Available Not Available No t Available mupirocin 2 % topical ointment 03/03 completed Not Available Not Available Not Available furosemide 20 mg tablet 03/11 completed Not Available Not Available Not Available gabapentin 100 mg capsule TAKE 1 CAPSULE BY MOUTH EVERY 6 HOURS NEEDED FOR PAIN 01/12 completed Not Available Not Available Not Available metoprolol succinate ER 25 mg tablet,exte nded release 24 hr TAKE 1/2 TABLET BY MOUTH EVERY DAY active Not Available Not Available No t Available azelastine 137 mcg (0.1 %) nasal spray 03/03 completed Not Available Not Available Not Available levofloxaci n 500 mg tablet 03/03 completed Not Available Not Available Not Available estradiol 0.01% (0.1 mg/gram) vaginal cream 03/11 completed Not Available Not Available Not Available methylpredn isolone 4 mg tablets in a dose pack FOLLOW PACKAGE DIRECTION S 10/19 completed Not Available Not Available Not Available paroxetine 40 mg tablet TAKE 1 TABLET BY MOUTH AT BEDTIME active Not Available Not Available No t Available Vitamin D2 1,250 mcg (50,000 unit) capsule 03/03 completed Not Available Not Available Not Available fluticasone propionate 50 mcg/actuati on nasal spray,suspe nsion SHAKE LIQUID AND USE 1 SPRAY IN EACH NOSTRIL TWICE DAILY active Not Available Not Available No t Available doxycycline hyclate 100 mg tablet TAKE 1 TABLET BY MOUTH TWICE DAILY 05/01 completed Not Available Not Available Not Available Pneumovax-2 3 25 mcg/0.5 mL injection syringe ADM 0.5ML IM UTD 06/30 completed Not Available Not Available Not Available cyclobenzap rine 5 mg tablet TAKE 1 TABLET BY MOUTH EVERY 8 HOURS 01/12 completed Not Available Not Available Not Available potassium chloride ER 10 mEq tablet,exte nded release(par t/cryst) 03/11 completed Not Available Not Available Not Available bupropion HCl XL 150 mg 24 hr tablet, extended release 03/03 completed Not Available Not Available Not Available nitrofurant oin monohydrate /macrocryst als 100 mg capsule TAKE 1 CAPSULE BY MOUTH TWICE DAILY 06/27 completed Not Available Not Available Not Available solifenacin 10 mg tablet 03/11 completed Not Available Not Available Not Available Tylenol 10/19 completed Not Available Not Available Not Available Vitamin D3 2000 IU 10/19 completed Not Available Not Available Not Available lidocaine (PF) 10 mg/mL (1 %) injection solution In office injection administe red by the provider 06/30 completed [facility]: [phone]- [phone] Not Available Not Available Not Available diclofenac 1 % topical gel 03/14 completed Not Available Not Available Not Available Prevnar 13 (PF) 0.5 mL intramuscul ar syringe 03/11 completed Not Available Not Available Not Available ropivacaine (PF) 5 mg/mL (0.5 %) injection solution IN OFFICE 06/30 completed [facility] [phone] -[phone] Not Available Not Available Not Available Eliquis 5 mg tablet TAKE 1 TABLET BY MOUTH TWICE DAILY active Not Available Not Available No t Available Breo Ellipta 100 mcg-25 mcg/dose powder for inhalation Inhale 1 puff every day by inhalatio n route. 03/14 completed Not Available Not Available Not Available Fluzone High-Dose 2014- (PF) 180 mcg/0.5 mL intramuscul ar syringe 03/03 completed Not Available Not Available Not Available vitamin B12 1,000 mcg-folic acid [address] by sublingua l route. 06/30 completed Not Available Not Available Not Available Shingrix (PF) 50 mcg/0.5 mL intramuscul ar suspension, kit ADMINISTE R 0.5ML IN THE MUSCLE DIRECTED 05/30 completed Not Available Not Available Not Available Fluzone High-Dose 2018- (PF) 180 mcg/0.5 mL intramuscul ar syringe 03/11 completed Not Available Not Available Not Available Fluzone High-Dose Quad (PF) 240 mcg/0.7 mL IM syringe ADM 0.7ML IM UTD 01/11 completed Not Available Not Available Not Available Gemtesa 75 mg tablet TAKE 1 TABLET BY MOUTH DAILY 10/31 completed Not Available Not Available Not Available BinaxNOW COVID-19 Ag Self Test kit TEST DIRECTED TODAY 05/01 completed Not Available Not Available Not Available Vitals Date Recorded Body height Body mass index (BMI) Body weight Pain severity - 0-10 verbal numeric rating [Score] - Reported Provider Name and Address Organization Details Last Updated DateTime 10/21/2023 162.56 cm 21.5 kg/m2 28042.05 g 7 Gretta Roger, [facility] [employer] 10/21/2023 14:48:03 Date Recorded Body height Body mass index (BMI) Body weight Provider Name and Address Organization Details Last Updated DateTime 12/15/2023 162.56 cm 21.6 kg/m2 60822.64 g Gretta Roger [facility] [employer] 12/15/2023 11:07:26 Date Recorded Body height Body mass index (BMI) Body weight Pain severity - 0-10 verbal numeric rating [Score] - Reported Provider Name and Address Organization Details Last Updated DateTime 01/13/2024 162.56 cm 21.6 kg/m2 99067.64 g 3 Gretta Acacia [facility] [employer] [facility] 01/13/2024 14:05:15 Date Recorded Body height Body mass index (BMI) Body weight Pain severity - 0-10 verbal numeric rating [Score] - Reported Provider Name and Address Organization Details Last Updated DateTime 03/02/2024 162.56 cm 21.6 kg/m2 43630.64 g 3 Gretta Roger [facility] [employer] [facility] 03/02/2024 13:55:10 Date Recorded Body height Body mass index (BMI) Body weight Pain severity - 0-10 verbal numeric rating [Score] - Reported Provider Name and Address Organization Details Last Updated DateTime 04/20/2024 162.56 cm 21.6 kg/m2 91965.64 g 8 Gretta Roegr [facility] 04/20/2024 13:55:10 Social History Question Answer Notes LastModified by Organizat ion Details LastModified Time Tobacco Smoking Status Never Smoker Corinne parra MD [facility] [employer] 03/18/2023 14:19:11 What Is Your Level Of Alcohol Consumption? Occasional [email or web address] Information not available 12/17/2022 What Was The Date Of Your Most Recent Tobacco Screening? 01/13/2024 [email or web address] Information not available 01/13/2024 Sex: Unknown Functional Status None recorded. Mental Status None recorded. Family History Relationship Description Onset Age of this Age Resolved Age Notes LastModified by Organization Details LastModified Time Brother Complication of anesthesia [email or web address] Not available 03/27 13:53:25 Brother Hypertensive disorder [email or web address] Not available 11/24 14:58:50 Brother Diabetes mellitus [email or web address] Not available 11/24 14:59:14 Father Family history of malignant neoplasm [email or web address] Not available 04/20 13:53:25 Maternal Grandfather Family history of malignant neoplasm [email or web address] Not available 04/20 13:53:25 Maternal Grandmother Family history of malignant neoplasm [email or web address] Not available 04/20 13:53:25 Sister Diabetes mellitus [email or web address] Not available 11/24 14:59:14 Notes:liver disease brother Medical History Condition Response ARTHRITIS Y USE OF BLOOD THINNERS Y COPD Y HEART DISEASE/HEART PROBLEMS Y ANEMIA/BLOOD DISORDER Y OSTEOPOROSIS Y URINARY/BLADDER/KIDNEY PROBLEMS Y Gynecological HistoryNo gynecological history recorded. Obstetrics History GPAL:G 0 P 0 0 0 0 Past Encounters Encounter ID Performer Location Encounter Start Date Encounter Closed Date Diagnosis/Indication Diagnosis SNOMED-CT Code Diagnosis ICD10 Code Diagnosis Note [id number] [facility] [address] [address] 02/28/2021 00:00:00 02/28/2021 12:18:47 [id number] [facility] [address] [address] 05/30/2021 00:00:00 05/30/2021 12:27:31 [id number] [facility] [address] [address] 1 06/27/2021 00:00:00 06/27/2021 12:45:11 [id number] [facility] [address] [address] 08/01/2021 00:00:00 08/01/2021 12:49:08 [id number] [facility] [id number] [place] [address] 10/31/2021 00:00:00 10/31/2021 12:46:35 [id number] MD DAVE [facility] [address] [place] [address] 05/01/2022 11:43:39 05/01/2022 12:14:24 Recurrent urinary tract infection 073236107 N39.0 continue trimpex [id number] Sridhar Springer MD [facility] [place] [address] [place] [address] 12/17/2022 14:25:57 12/17/2022 15:23:47 Pain in right hand [id number] 80718 M79.764 [id number] MD DAVE Perez[facility] [place] [address] [place] [address] 03/18/2023 14:16:56 03/18/2023 15:19:51 Pain of bilateral hands [id number] [id number] M79.643 Pain in right hand 34599 05678 04715 M79.641 Arthritis of first carpometacarpal joint of right hand 7735856123 367478 M13.141 [id number] Sridhar Springer MD [facility] [place] [address] [place] [address] 07/01/2023 14:00:34 07/01/2023 14:41:08 Arthritis of first carpometacarpal joint of right hand [id number] 572232 M13.841 Pain in right hand 45878 23672 70284 M79.507 [id number] Sridhar Springer MD [facility] [place] [address] [place] [address] 10/21/2023 14:45:06 10/21/2023 15:43:17 Pain in right hand 5652567912 65940 M79.641 Pain of left hand 984893 9911 94122 M79.622 [id number] Eleonora Kinsey NP [facility] [place] [address] [place] [address] 12/15/2023 11:04:49 12/15/2023 11:38:45 [id number] Sandy Varma PA-C [facility] [place] [address] [place] [address] 01/13/2024 13:46:11 01/13/2024 14:36:05 Arthritis of first carpometacarpal joint of right hand [id number] 387011 M13.825 [id number] Eleonora Kinsey NP [facility] [place] [address] [facility] [address] [place] [address] 03/02/2024 13:50:06 03/02/2024 14:45:59 Arthritis of first carpometacarpal joint of right hand [id number] 619306 M13.841 Pain in right hand 48268 78346 91627 M79.215 [id number] Sridhar Springer MD [facility] [place] [address] [facility] [address] [place] [address] 04/20/2024 13:51:43 04/20/2024 14:54:27 Arthritis of first carpometacarpal joint of right hand 2377489492 405467 M13.841 Pain of bi lateral hands 0713635352 6678228 M79.643 Health Concerns Section Related Observation LastModified by Organization Detai ls LastModified Time None Recorded Concern Status LastModified by Organization Details LastModified Time None Recorded Advance Directives Directive None Recorded Payers Encounter Date Sequence Insurance Name Policy Number Policy Noble Covered Member ID Noble Member ID Guarantor Name 10/21/2023 1 [place] Jessika Menjivar [id number] Jessika Menjivar 10/21/2023 2 [place] 33A Jessika Menjivar [id number] Jessika Menjivar 12/15/2023 1 [place] Menjivar [id number] Jessika Menjivar 12/15/2023 2 [place]A Jessika Menjivar [id number] Jessika Menjivar 01/13/2024 1 [place]ika Menjivar [id number] Jessika Menjivar 01/13/2024 2 [place] 33A Jessika Menjivar [id number] Jessika Menjivar 03/02/2024 1 [place]ika Menjivar [id number] Jessika Menjivar 03/02/2024 2 [place]A Jessika Menjivar [id number] Jessika Menjivar 04/20/2024 1 [place] Jessika Dickson Otto [id number] Jessika Menjivar 04/20/2024 2 [place] 33A Jessika Menjivar [id number] Jessika Menjivar OBGyn Episode No OBEpisode recorded.
--- OUTSIDE RECORDS SUMMARY | 2024-05-16 12:36 | XMS_ITS | Clinical Summary ---
Author Organization [facility] Address [address] [place] [address] Care Team Providers Care Fabrication Specialist Name Role Phone Kush Coe MD Unavailable [phone] Reji Aparicio MD Unavailable Unavailable Mj Mcqueen MD Unavailable [phone] Haley Marroquin MD Unavailable [phone] Luisa Lee MD Unavailable [phone] Karl Flores MD Primary Care Provider [phone] Source Comments [facility],non-owned Affiliates and Associated Physician Practices is amultiple site organization consisting of ambulatory clinics and hospital sitesin [place], [place], [place]. This disclosure is being madepursuant to the Care Everywhere program and may not contain all information available regarding this patient. Last updated 17.[facility] Allergies Active Allergy Reactions Criticality Noted Date Comments Codeine 07/01/2008 Contrast-Iodinated Agents For Ct/Other 07/01/2008 IVP dye. Darvon 07/01/2008 Demerol 07/01/2008 Penicillins 07/01/2008 Propoxyphene N-Apap 07/01/2008 Tramadol Nausea and/or Vomiting 12/19/2010 Medications * Be aware that medications may not be up to date on this document. Alwaysverify current medications with the patient. Medication Sig Dispensed Refills Start Date End Date Status atorvastatin (LIPITOR) 20 MG tablet Take 20 mg by mouth at bedtime. Active Metoprolol Succinate (TOPROL XL PO) Take by mouth. Active azelastine (ASTEPRO) 205.5 MCG/SPRAY nasal spray [place] 2 Sprays into each nostril 2 times daily. Active predniSONE (DELTASONE) 20 MG tabletIndications:C ough Take 1 Tab by mouth 2 times daily. for 5 to 7 days for Arthritis flare ups 40 Tab 3 06/19/2011 Active Cyanocobalamin (VITAMIN B-12 PO) Take by mouth. Act hilary Cholecalciferol (VITAMIN D) 1000 UNIT capsuleIndications: Osteopenia Take 2 Caps by mouth once daily. 12/06/2012 Active acetaminophen (TYLENOL) 500 MG tabletIndications:D SALLY (degenerative joint disease) of knee Take 2 Tabs by mouth 3 times daily. Maximum allowable Acetaminophen amount = 4 Grams (4000 mg) / 24 hours. 12/06/2012 Active gabapentin (NEURONTIN) 300 MG capsule TAKE ONE TO TWO CAPSULES BY MOUTH AT BEDTIME 60 Cap 6 06/23/2013 Active LORazepam (ATIVAN) 0.5 MG tablet Take 0.5 mg by mouth 2 times daily as needed anxiety 07/02/2020 Active flecainide (TAMBOCOR) 100 MG tablet Take 100 mg by mouth 2 times daily 06/07/2020 Active Active Problems Problem Noted Date Diagnosed Date DJD (degenerative joint disease) of knee 011 Insomnia 08/22/2009 Overview (12/19/2010): Struggling Will try routine use of Gabapentin at Trochanteric bursitis 05/17/2009 Overview (05/17/2009): Right sciatica and lateral hip pain. Leukopenia 01/11/2009 Overview (01/11/2009): 01/11/2009 assymptomatic and not related tocytotoxic drugs. First recognized when on Rotator cuff syndrome 01/11/2009 Encounter for long-term (cur rent) use of non-steroidal anti-inflammatories 07/12/2008 Overview (07/12/2008): 07/12/2008 on etodolac regularly Chronic pain 07/01/2008 DA (degenerative arthritis) 07/01/2008 Overview (07/01/2008): Neck. Radiculopathy 07/01/2008 Overview (07/01/2008): Possible left C7 or C8 with pain into the ulnar side of left hand. Chronic constipation 07/01/2008 Family History Medical History Relation Name Comments Arthritis - Osteo Brother 1 Diabetes - Type 1 Brother 1 High Cholesterol Brother 1 Other - Hepatic/Liver Brother 1 Thyroid Disease Brother 1 Hypertension Brother 2 Cancer Father colon Arthritis - Osteo Mother Cancer Mother breast Cataract Mother High Cholesterol Mother Thyroid Disease Mother Arthritis - Osteo Sister High Cholesterol Sister Migraine Sister Seizures Sister Relation Name Status Comments Brother 1 Alive Brother 2 Father Mother Sister Social History Tobacco Use Types Packs/Day Years Used Date Smoking Tobacco: Never Smokeless Tobacco: Never Alcohol Use Standard Drinks/Week Comments Yes 1 (1 standard drink = 0.6 oz pur e alcohol) socially Sex and Gender Information Value Date Recorded Sex Assigned at Not on file Gender Identity Not on file Sexual Orientation Not on file Last Filed Vital Signs Vital Sign Reading Time Taken Comments Blood Pressure 114/68 12/06/2012 10:35 AM CDT Pulse 64 12/06/2012 10:35 AM CDT Temperature - - Respiratory Rate - - Oxygen Saturation - - Inhaled Oxygen Concentration - - Weight 53.1 kg (117 lb) 07/05/2020 10:04 AM CDT Height 162.6 cm (5' 4 ) 07/05/2020 10:04 AM CDT Body Mass Index 20.08 07/05/2020 10:04 AM CDT Plan of Treatment Health Maintenance Due Date Last Done Comments BONE DENSITY TESTING 1950 COLOGUARD (AGES 45-75) - COL ON CA SCREENING 1949 COLON MONITORING 1949 COLONOSCOPY - COLON CA SCREENING 1949 CT COLONOGRAPHY - COLON CA SCREENING 1950 Colorectal Cancer Screening 1950 FIT - COLON CA SCREENING 1949 FLEX SIG - COLON CA SCREENING 1950 MAMMOGRAM 1950 MEDICARE AWV 12 MONTHS 1950 HEPATITIS C SCREENING 03/02/1967 DTAP/TDAP/TD VACCINES (1 - Tdap) 1968 PNEUMOCOCCAL VACCINE 50+ (1 of 1 - PCV) 1999 ZOSTER VACCINE (1 of 2) 1999 COVID-19 VACCINE (1 - 2023-2 5 season) 2023 INFLUENZA VACCINE (#1) 2023 DEPRESSION SCREENING 02/24/2024 Respiratory Syncytial Virus (RSV) Vaccine Pt: or over 60 yrs (1 - 1-dose 75+ series) 2024 HEPATITIS B VACCINE Aged Out No longe r eligible based on patient's age to complete this topic HIB VACCINE Aged Out No longer eligi ble based on patient's age to complete this topic HPV VACCINE Aged Out No longer eligi ble based on patient's age to complete this topic MENINGOCOCCAL (Group B) VACC INE SHARED DECISION-MAKING Aged Out No longer eligibl e based on patient's age to complete this topic MENINGOCOCCAL GROUPS A/C/Y/W VACCINE Aged Out No longer eligible b ased on patient's age to complete this topic Care Teams Fabrication Specialist Relationship Specialty Start Date End Date Karl Flores MD [address] [place] [address] PCP - General Family Medicine 06/18/20 Kush Coe MD Orthopedic Surgery 06/19/10 Reji Aparicio MD Rheumatology 12/18/10 Mj Mcqueen MD Urology 05/06/12 [place] [address] [place] [address] Dermatology 05/06/12 Luisa Lee MD [facility] [address] Obstetrics and Gynecology 05/06/12
== END 2024-05-16 10:42 | disposition home or self-care (01) ==
PROVIDERS: PCP Family Medicine; Visit Provider Plastic Surgery
DX: M18.11 Unilateral primary osteoarthritis of first carpometacarpal joint, right hand (principal)
CPT/HCPCS: 73130

== ENCOUNTER 2024-06-15 11:20 | Outpatient (CLI) | payer MEDICARE, BC, SELFPAY ==
--- NOTE | ~2024-06-15 | XR_ITS ---
AP view of the pelvis and AP and lateral views of the right hip Clinical history: Pain Findings: No acute fracture or dislocation is seen. Osseous alignment is anatomic. Bilateral hip and SI joint spaces are preserved. Soft tissues are unremarkable. Impression: No significant abnormality is seen. Reviewed, dictated and finalized at [facility]. Impression: No significant abnormality is seen.
== END 2024-06-15 11:21 | disposition home or self-care (01) ==
PROVIDERS: PCP Family Medicine; Visit Provider Physician Assistant Surgical
DX: M25.551 Pain in right hip (principal)
CPT/HCPCS: 73502

== ENCOUNTER 2024-06-23 12:55 | Outpatient (CLI) | payer MEDICARE, BC, SELFPAY ==
--- OUTSIDE RECORDS SUMMARY | 2024-06-23 13:40 | XMS_ITS | Patient Health Record ---
Author Organization [facility] Address [address] [place] [address] PATRICK Harris [address] Care Team Providers Care Pitch Flaker Name Role Phone RISHABH MORFIN MD Primary Care Provider Cade Rose Unavailable [phone] ALLERGIES Allergen (clinical drug ingredient) Drug/Non Drug Allergy documented on EMR Reaction Allergy Type Onset Date Status ampicillin Ampicillin Unknown Drug Allergy Activ e codeine Codeine tongue swells Drug Allergy Act hilary fentanyl Fentanyl Unknown Drug Allergy Active hydrocodone Hydrocodone stomach upset Drug Allergy Active Iodinated contrast media (substance) Iodinated Diagnostic Agents swelling Drug Allergy Active meperidine Meperidine rash Drug Allergy Activ e Penicillin rash Drug Allergy Active propoxyphene Propoxyphene Unknown Drug Allergy A ctive tramadol Tramadol stomach upset Drug Allergy Act hilary REASON FOR REFERRAL No Information MEDICATIONS Medication SIG (Take, Route, Frequency, Duration) Notes Start Date End Date Status Atorvastatin Calcium 10 MG TAKE 1 TABLET BY MOUTH DAILY Oral for 90 E782,Unavaila ble Active Fluticasone Propionate 50 MCG/ACT SHAKE LIQUID AND USE 1 SPRAY IN EACH NOSTRIL TWICE DAILY Nasal J302,Unavaila ble Active Metoprolol Succinate ER 25 MG 1 tablet Orally Once a day Active Pantoprazole Sodium 40 MG 1 tablet Orall y Once a day Active Paxil 40 MG 1 tablet in the morning Orally Once a day Active Vitamin D2 50 MCG (1999) 1 tablet Ora lly Once a day Active PARoxetine HCl 40 MG TAKE 1 TABLET BY MOUTH DAILY Oral for 30 Active busPIRone HCl 5 MG TAKE 1 TABLET BY MOUTH THREE TIMES DAILY Oral for 30 F419,Unavaila ble Active Omeprazole 20 MG 1 capsule 30 minutes before morning meal Oral Once a day Active methylPREDNISolone 4 MG as directed Orally 023 Active Trimethoprim 100 MG 1 tablet Orally Once a day for 10 day(s) Active Alendronate Sodium 70 MG 1 tablet 30 minutes before the first food, beverage or medicine of the day with plain water Orally Once a day Active Eliquis 5 MG 1 tablet Orally Twice a day Active LORazepam 0.5 MG 1 tablet Orally Twice a day Active Flecainide Acetate 100 MG 0.5 tablet Ora lly every 12 hrs Active Lipitor 10 MG 1 tablet Orally Once a day Active SOCIAL HISTORY Sex Assigned At : Social History Observation Description Sex Assigned At Unknown PROBLEMS Problem Type ICD Code Onset Dates Problem Status W/U Status Risk SNOMED Code Notes Problem Spondylosis without myelopathy or radiculopathy, cervical region (M47.812) Active confirmed Cervical spondylosis without myelopathy (767462531) Problem Spondylosis without myelopathy or radiculopathy, cervicothoracic region (M47.813) Active confirmed Cervical spondylosis without myelopathy (988571358) Problem Spondylosis without myelopathy or radiculopathy, lumbar region (M47.816) Active confirmed Lumbosacral spondylosis without myelopathy (05935257) Problem Spondylosis without myelopathy or radiculopathy, lumbosacral region (M47.817) Active confirmed Lumbosacral spondylosis without myelopathy (disorder) (37264708) Problem Spinal stenosis, cervical region (M48.02) Active confirmed Spinal stenosis in cervical region (05838146) Problem Intervertebral disc disorders with radiculopathy, lumbar region (M51.16) Active confirmed Radiculopathy d ue to lumbar intervertebral disc disorder (448030412992490) Problem Other intervertebral disc degeneration, lumbar region (M51.36) Active confirmed Degeneration of lumbar intervertebral disc (09217694) Problem Radiculopathy, cervical region (M54.12) Active confirmed Cervical radiculopathy (65959335) Problem Radiculopathy, cervicothoracic region (M54.13) Active confirmed Cervical radiculopathy (97370592) Problem Radiculopathy, lumbar region (M54.16) Active confirmed Lumbar radiculopathy (365387726) Problem Occipital neuralgia (M54.81) Active confirmed Occipital neuralgia (80976172) Problem Osseous stenosis of neural canal of lumbar region (M99.33) Active confirmed Spinal stenosis of lumbar region (48647649) Problem Intervertebral disc stenosis of neural canal of cervical region (M99.51) Active confirmed Spinal stenosis in cervical region (90247980) Problem Chest pain, unspecified (R07.9) Active confirmed Chest pain (75147360) Problem 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 of anticoagulants (Z79.01) Active confirmed Long-term curre nt use of anticoagulant (020741946) Problem Cervical disc disorder at C6-C7 level with radiculopathy (M50.123) Active confirmed Cervical disc disorder with radiculopathy (744103250) PLAN OF TREATMENT Pending Test Test Name Order Date Chest X-ray PA and lateral 03/15/2020 MRI : Cervical Spine without Contrast (7 0553) 03/15/2020 MRI : Lumbar Spine without contrast (726 48) 03/15/2020 Insurance Providers Payer Name Payer Address Payer Phone Subscriber Number Group Number Insured Name Patient Relationship to Insured Coverage Start Date Coverage End Date Medicare [place] [address] [address] [place] [address] [id number] LISSET MORILLO Self - patient is the insured [facility] [address] [place] [phone] [id number] LISSET MORILLO Self - patient is the insured MEDICAL (GENERAL) HISTORY Medical History History ICD Code Insomnia Leukopenia Depression Anxiety Afib SVT GERD Osteoporosis Surgical History Surgery Date(Month/Year) Appendectomy 1974 Cholecystecomy 1974 Cardiac ablation Left wrist surgery
--- OUTSIDE RECORDS SUMMARY | 2024-06-23 13:41 | XMS_ITS | Clinical Summary ---
Author Organization [facility] Address [address] [place] [address] Care Team Providers Care Director Medical Science Name Role Phone Karl Flores MD Unavailable [phone] Karl Flores MD Primary Care Provider [phone] Allergies Active Allergy Reactions Criticality Noted Date Comments Acetaminophen Rash Medium 04/22/2016 Ampicillin Codeine Fentanyl Hydrocodone Stomach upset Reaction: GI UPSET, Iodinated Contrast Media Swelling Medium 01/19/2019 Meperidine Penicillins Other (See comments) Reaction: OTHER REACTION, Propoxyphene Tramadol Stomach upset Reaction: GI UPSET, , Medications ergocalciferol (VITAMIN D2) 50,000 unit capsule take 1 capsule by oral route every week 0 06/06/19 12 Active Additional Information Patient taking differently: 2,000 Units oral Daily, Reported on 03/28/2024 PARoxetine (PAXIL) 40 mg tablet take 1 tablet (40MG) by oral route every day 0 06/06/19 12 Active atorvastatin (LIPITOR) 10 mg tablet take 1 tablet (10MG) by oral route every day 0 06/06/19 12 Active propylene glycol (Systane Balance) 0.6 % drops Administer into affected eye(s) 2 (two) times a day Active LORazepam (ATIVAN) 0.5 mg tablet Take by mouth nightly 03/06/19 21 Active omeprazole (PriLOSEC) 20 mg capsule daily 03/06/19 21 Active azelastine (ASTELIN) 137 mcg (0.1 %) nasal spray spray 2 spray by intranasal route 2 times every day in each nostril as needed Active cyanocobalamin (Vitamin B-12) 1,000 mcg tablet Indications: supplement. Take one every day Active trimethoprim (TRIMPEX) 100 mg tablet trimethoprim 100 mg tablet TAKE 1 TABLET BY MOUTH EVERY DAY 02/28/19 22 Active busPIRone (BUSPAR) 5 mg tablet Take 1 tablet (5 mg total) by mouth 3 (three) times a day Active fluticasone propionate (FLONASE) 50 mcg/actuation nasal spray SHAKE LIQUID AND USE 1 SPRAY IN EACH NOSTRIL TWICE DAILY 02/14/20 22 Active ketotifen (ZADITOR) 0.025 % ophthalmic solution 1 drop(s), Both eyes, [id number], 7.5 mL, 0 08/22/19 23 Active Eliquis 5 mg tablet TAKE 1 TABLET(5 MG) BY MOUTH TWICE DAILY 60 tablet 11 02/09/20 24 Active metoprolol XL (TOPROL-XL) 25 mg extended release tablet Take 1 tablet (25 mg total) by mouth daily 15 tablet 11 03/28/19 25 Active flecainide (TAMBOCOR) 100 mg tablet TAKE 1 TABLET(100 MG) BY MOUTH TWICE DAILY 180 tablet 1 06/24/19 25 Active flecainide (TAMBOCOR) 100 mg tablet Take 1 tablet (100 mg total) by mouth 2 (two) times a day 180 tablet 1 03/28/19 25 025 Discontinued Active Problems Problem Noted Date Diagnosed Date [...] Department Care Team Description 03/28/2024 11:45 AM OUTBOUND TELEMARKETING REPRESENTATIVE Lab [facility] Endocrinology Metabolism and Lipid [address] [facility] [address] [place] [address] [place] [address] High risk medication use 03/28/2024 11:30 AM OUTBOUND TELEMARKETING REPRESENTATIVE Office Visit [facility] Cardiology [address] [facility] [address] [place] [address] [place] [address] Courtney Kearns NP High risk medication use [...] on file Legal Sex Female 2:06 AM OUTBOUND TELEMARKETING REPRESENTATIVE Gender Identity Not on file Sexual Orientation Not on file Obstetrics History Last Filed Vital Signs Vital Sign Reading Time Taken Comments Blood Pressure 96/60 03/28/2024 11:27 AM OUTBOUND TELEMARKETING REPRESENTATIVE Pulse 53 03/28/2024 11:27 AM OUTBOUND TELEMARKETING REPRESENTATIVE Temperature 36.6 C (97.8 F) 12/06/2020 1:13 PM CDT Respiratory Rate - - Oxygen Saturation 98% 03/28/2024 11:27 AM OUTBOUND TELEMARKETING REPRESENTATIVE Inhaled Oxygen Concentration - - Weight 57.2 kg (126 lb 3.2 oz) 03/28/2024 11:27 AM OUTBOUND TELEMARKETING REPRESENTATIVE Height 162.6 cm (5' 4 ) 03/28/2024 11:27 AM OUTBOUND TELEMARKETING REPRESENTATIVE Body Mass Index 21.66 03/28/2024 11:27 AM OUTBOUND TELEMARKETING REPRESENTATIVE Plan of Treatment Health Maintenance Due Date Last Done Comments Colon Cancer Screening-Colonoscopy 1950 Depression Screening 1950 Fall Risk Assessment 1950 Hepatitis C Screening 1950 Osteoporosis Screening-Bone Density Scan 1949 DTaP/Tdap/Td Vaccine (1 - Tdap) 1960 Hepatitis B Screening 1967 Pneumococcal vaccine 65+ (1 of 2 - PCV) 1968 Zoster Vaccine (1 of 2) 1999 Well Visit 65+ 2014 Influenza Vaccine (Season Ended) 2024 11/16/2014, 11/02/2013, 11/09/2012, Additional history exists Procedures Procedure Name Priority Date/Time Associated Diagnosis Comments COMPREHENSIVE METABOLIC PANEL Routine 03/28/2024 11:46 AM OUTBOUND TELEMARKETING REPRESENTATIVE High risk medication use ECG 12-LEAD Routine 03/28/2024 11:24 AM OUTBOUND TELEMARKETING REPRESENTATIVE High risk medication use from Last 3 Months Results * Comprehensive metabolic panel (03/28/2024 11:46 AM OUTBOUND TELEMARKETING REPRESENTATIVE) Total Protein 6.9 6.1 - 8.4 g/dL [...] - [facility] Blood 03/28/2024 11:4 6 AM OUTBOUND TELEMARKETING REPRESENTATIVE 03/28/2024 12:57 PM OUTBOUND TELEMARKETING REPRESENTATIVE us Courtney Kearns VACUUM TECHNICIAN LAB BLOOD ORDERABLES Fin al Result [facility] * ECG 12 lead (03/28/2024 11:24 AM OUTBOUND TELEMARKETING REPRESENTATIVE) us Courtney Kearns VACUUM TECHNICIAN ECG ORDERABLES Edited R esult - Final from Last 3 Months Insurance MEDICARE [facility] MEDICARE ANTHEM ACCESS ANTHEM ACCESS MEDICARE Care Teams Director Medical Science Relationship Specialty Start Date End Date Karl Flores MD [address] [place] [id number] PCP - General Family Medicine 01/19/19 Karl Flores MD [address] [place] [address] Referring Physician Family Medicine 01/19/19
--- OUTSIDE RECORDS SUMMARY | 2024-06-23 13:42 | XMS_ITS | Referral Summary ---
Author Organization [facility] Address [address] [place] [address] Care Team Providers Care Machine Plate Stacker Name Role Phone Karl Flores MD Unavailable [phone] Karl Flores MD Primary Care Provider [phone] Encounters Date Type Department Care Team Description 03/28/2024 11:45 AM CAPTAIN/AIRLINE PILOT Lab [facility] Endocrinology Metabolism and Lipid [address] [facility] [address] [place] [address] [place] [address] High risk medication use 03/28/2024 11:30 AM CAPTAIN/AIRLINE PILOT Office Visit [facility] Cardiology [address] [facility] [address] [address] [place] [address] [place] [address] Courtney Kearns NP High risk [...] % ophthalmic solution 1 drop(s), Both eyes, [id number], 7.5 mL, 0 08/22/19 23 Active Eliquis [...] on file Legal Sex Female 2:06 AM CAPTAIN/AIRLINE PILOT Gender Identity Not on file Sexual Orientation Not on file Last Filed Vital Signs Vital Sign Reading Time Taken Comments Blood Pressure 96/60 03/28/2024 11:27 AM CAPTAIN/AIRLINE PILOT Pulse 53 03/28/2024 11:27 AM CAPTAIN/AIRLINE PILOT Temperature 36.6 C (97.8 F) 12/06/2020 1:13 PM CDT Respiratory Rate - - Oxygen Saturation 98% 03/28/2024 11:27 AM CAPTAIN/AIRLINE PILOT Inhaled Oxygen Concentration - - Weight 57.2 kg (126 lb 3.2 oz) 03/28/2024 11:27 AM CAPTAIN/AIRLINE PILOT Height 162.6 cm (5' 4 ) 03/28/2024 11:27 AM CAPTAIN/AIRLINE PILOT Body Mass Index 21.66 03/28/2024 11:27 AM CAPTAIN/AIRLINE PILOT Plan of Treatment Not on file Procedures Procedure Name Priority Date/Time Associated Diagnosis Comments COMPREHENSIVE METABOLIC PANEL Routine 03/28/2024 11:46 AM CAPTAIN/AIRLINE PILOT High risk medication use ECG 12-LEAD Routine 03/28/2024 11:24 AM CAPTAIN/AIRLINE PILOT High risk medication use from Last 3 Months Results * Comprehensive metabolic panel (03/28/2024 11:46 AM CAPTAIN/AIRLINE PILOT) Total Protein 6.9 6.1 - 8.4 g/dL [...] - [facility] Blood 03/28/2024 11:4 6 AM CAPTAIN/AIRLINE PILOT 03/28/2024 12:57 PM CAPTAIN/AIRLINE PILOT us Courtney Kearns NP LAB BLOOD ORDERABLES Fin al Result [facility] * ECG 12 lead (03/28/2024 11:24 AM CAPTAIN/AIRLINE PILOT) us Courtney Kearns APPLICATIONS SALES REPRESENTATIVE ECG ORDERABLES Edited R esult - Final from Last 3 Months Insurance MEDICARE [facility] FEDERAL MEDICARE [facility] ACCESS MEDICARE Care Teams Machine Plate Stacker Relationship Specialty Start Date End Date Karl Flores MD [address] [facility] [address] [place] [address] PCP - General Family Medicine 01/19/19 Karl Flores MD [address] [facility] [address] [place] [address] Referring Physician Family Medicine 01/19/19
--- OUTSIDE RECORDS SUMMARY | 2024-06-23 13:42 | XMS_ITS | Data Portability ---
Author Organization [facility] Main Office Address [address] [place] [address] Care Team Providers Care Material Spreader Name Role Phone RISHABH MORFIN Primary Care Provider [phone] RISHABH MORFIN Referring Provider [phone] Assessment Encounter Date Assessment Date Assessment LastModified [...] Organization Details Last Modified Time Details Appointments None recorded. Lab None recorded. Referral physical therapist referral - R hand continuati on of therapy 2024 025 ATHENAFAX [facility] [place] [facility], [address], [place], [address], 5 08:55:41 physical therapist referral - patient to schedule 2023 024 [email or web address] [facility] [place] [facility], [address], [place], [address], 4 22:45:20 Procedures injection/ aspiration joint/burs a (PROC) 2023 024 [email or web address] In-Office Order, Internal Use Only DO Not Attach Compendium DO Not Attach Compendium, Do Not Delete/merge, [address] 4 15:01:46 Surgeries None recorded. Imaging XR, hand, 3 or more view 2024 025 [email or web address] [facility] [place], [address], [place], [address], 5 23:54:52 Medication Orders bupivacain e HCl 0.5 % (5 mg/mL) injection solution [address] [id number], [address] [place], [id number], 4 21:33:07 Kenalog 10 mg/mL suspension for injection 2023 024 [email or web address] [id number], [address] [place], [place], [id number], 4 21:33:07 Patient TargetsNo targets recorded. Patient InstructionsNo [...] observ ation record ed. [email or web address] [facility] [place] [address], [place], [address], 03/02/2024 14:16:44 Result Notes None recorded. Problems Name Problem SNOMED Code Status Onset Date Resolution Date Notes Provider Name and Address Organization Details Recorded Time Disorder of shoulder 008747673 Active Not Available [facility] 3 02:39:42 Enthesopat hy of hip region 04219959 Active Not Available [facility] 3 02:39:42 Bicipital tenosynovi tis 34778811 Active Not Available [facility] 3 02:39:42 Disorder of rotator cuff 478805911 Active Not Available [facility] 3 02:39:43 Pain of hip region 84033529 Active Not Available [facility] 3 02:39:43 Disorder of bursa of shoulder region 87329343 Active Not Available [facility] 3 02:39:43 Osteoarthr itis of shoulder region 92260232 Active Not Available [facility] 3 02:39:43 Recurrent urinary tract infection 708210238 Active 2022 Mj Mcqueen MD [address], [place], [address] , [facility] 3 12:13:51 Pain in right hand 5567569622454 09 Active 2022 OLI Moura null, [facility] 3 14:51:07 Pain of bilateral hands 9558429130078 9109 Active 2023 МАРИНА Coello null, [facility] 4 14:29:04 Trigger thumb of right hand 7248454937545 05 Active 2023 Dina Chavez CNA null, [facility] 4 15:21:10 Arthritis of first carpometac arpal joint of right hand 5222575630832 100 Active 2023 Sridhar Springer MD [address], [place], [address] , [facility] 4 17:16:38 Pain of left hand 9019474839921 03 Active 2023 МАРИНА Coello null, [facility] 4 14:48:48 Problem Notes None recorded. Procedures Surgical History Date Name Laterality Status Provider Name and Address Organization Details Recorded Time 10/21/19 Ortho - Cortisone Injection completed Sridhar Springer MD [address], [place], [address], [facility] 10/22/2023 22:55:33 03/18/19 Ortho - Cortisone Injection completed Sridhar Springer MD [address], [place], [address], [facility] 04/29/2023 22:21:05 12/18/19 23 Ortho - Cortisone Injection completed Sridhar Springer MD [address] [place] [address], [address], [place] [facility] 12/19/2022 10:46:11 Nose completed Ina Francoeur, ATC L [facility] 12/17/2022 14:59:58 Nose completed Ina Francoeur, ATC L [place] [facility] 12/17/2022 14:59:59 Nose completed Ina Francoeur, ATC L [facility] 12/17/2022 15:00:00 Foot Surgery completed Ina Francoeur, ATC L [place] [facility] 12/17/2022 15:00:13 Foot Surgery completed Ina Francoeur, ATC L [place] [facility] 12/17/2022 15:00:15 Gallbladder Surgery completed Ina Francoeur, ATC L [place] [facility] 12/17/2022 15:01:16 Hysterectomy completed Ina Francoeur, ATC L [place] [facility] 12/17/2022 15:01:27 thumb surgery completed Ina Francoerich, ATC L [place] [facility] 12/17/2022 15:02:11 procedure on wrist completed Ina Francoerich, ATC L [place] [facility] 12/17/2022 15:02:57 Imaging Results Imaging Date Name Status LastModified by Organiz ation Details LastModified Time 03/02/2024 XR, hand, 3 or more view completed [email or web address] [facility] [place] [address], [place], [address], 03/02/2024 14:16:44 Procedure Notes None recorded. Medical Equipment None Reported. Allergies Allergen ID Allergen Name Allergen Category Reaction Reaction Severity Criticality Documentation Date Start Date Code Code System Note Provider Name and Address Organization Details Recorded Time 3565 tramadol medicatio n Not available Not available Not available 04/23/2022 38680 RxNorm Not Available [facility] 03/01/202 3 02:46:26 3566 fentanyl medicatio n Not available Not available Not available 04/23/2022 4337 RxNorm Not Available [facility] 3 02:46:26 3567 Demerol medicatio n Not available Not available Not available 04/23/2022 19960 1 RxNorm Not Available [facility] 3 02:46:26 3568 codeine medicatio n Not available Not available Not available 04/23/2022 2670 RxNorm Not Available [facility] 3 02:46:26 Medications Name Sig Start Date [...] suspension for injection IN OFFICE 2023 active [facility]: 0003- 0494- 20 Not Available Not Available [...] administe red by the provider 06/30 completed [facility]: 0409- 4276- 17 Not Available Not Available Not Available diclofenac 1 % topical gel 03/14 completed Not Available Not Available Not Available Prevnar 13 (PF) 0.5 mL intramuscul ar syringe 03/11 completed Not Available Not Available Not Available ropivacaine (PF) 5 mg/mL (0.5 %) injection solution IN OFFICE 06/30 completed [facility] [address] -[address]- 01 Not Available Not Available Not [...] Updated DateTime 10/21/2023 162.56 cm 21.5 kg/m2 71020.05 g 7 Gretta Roger [facility] [employer] [facility] 10/21/2023 14:48:03 Date Recorded Body height Body mass index (BMI) Body weight Provider Name and Address Organization Details Last Updated DateTime 12/15/2023 162.56 cm 21.6 kg/m2 39553.64 g Gretta Roger [facility] [employer] [facility] 12/15/2023 11:07:26 Date Recorded Body height Body mass index (BMI) Body weight Pain severity - 0-10 verbal numeric rating [Score] - Reported Provider Name and Address Organization Details Last Updated DateTime 01/13/2024 162.56 cm 21.6 kg/m2 54815.64 g 3 Gretta Roger [facility] [employer] [facility] 01/13/2024 14:05:15 Date Recorded Body height Body mass index (BMI) Body weight Pain severity - 0-10 verbal numeric rating [Score] - Reported Provider Name and Address Organization Details Last Updated DateTime 03/02/2024 162.56 cm 21.6 kg/m2 09036.64 g 3 Gretta Roger [facility] [employer] [facility] 03/02/2024 13:55:10 Date Recorded Body height Body mass index (BMI) Body weight Pain severity - 0-10 verbal numeric rating [Score] - Reported Provider Name and Address Organization Details Last Updated DateTime 04/20/2024 162.56 cm 21.6 kg/m2 68134.64 g 8 Gretta Acacia [facility] [employer] [facility] 04/20/2024 13:55:10 Social History Question Answer Notes LastModified by Organizat ion Details LastModified Time Tobacco Smoking Status Never Smoker Corinne Todd parra [facility] [employer] [facility] 03/18/2023 14:19:11 What Is Your Level Of Alcohol Consumption? Occasional [email or web address] Information not available 12/17/2022 What Was The Date Of Your Most Recent Tobacco Screening? 01/13/2024 [email or web address] Information not available 01/13/2024 Sex: Unknown Functional Status None recorded. Mental Status None recorded. Family History Relationship Description Onset Age of this Age Resolved Age Notes LastModified by Organization Details LastModified Time Brother Complication of anesthesia [email or web address] Not available 03/27 13:53:25 Brother Hypertensive disorder [email or web address] Not available 11/24 14:58:50 Brother Diabetes mellitus [email or web address] Not available 11/24 14:59:14 Father Family history of malignant neoplasm [email or web address] Not available 04/20 13:53:25 Maternal Grandfather Family history of malignant neoplasm [email or web address] Not available 04/20 13:53:25 Maternal Grandmother Family history of malignant neoplasm [email or web address] Not available 04/20 13:53:25 Sister Diabetes mellitus [email or web address] Not available 11/24 14:59:14 Notes:liver disease brother Medical History Condition Response HEART DISEASE/HEART PROBLEMS Y ARTHRITIS Y OSTEOPOROSIS Y URINARY/BLADDER/KIDNEY PROBLEMS Y USE OF BLOOD THINNERS Y ANEMIA/BLOOD DISORDER Y COPD Y Gynecological HistoryNo gynecological history recorded. Obstetrics History GPAL:G 0 P 0 0 0 0 Past Encounters Encounter ID Performer Location Encounter Start Date Encounter Closed Date Diagnosis/Indication Diagnosis SNOMED-CT Code Diagnosis ICD10 Code Diagnosis Note [id number] MD KHADIJAH Giron [facility] [address] [place] [address] 02/28/2021 00:00:00 02/28/2021 12:18:47 [id number] MD KHADIJAH Giron [address] [address] 05/30/2021 00:00:00 05/30/2021 12:27:31 [id number] MD KHADIJAH Giron [facility] [address] [place] [address] 1 06/27/2021 00:00:00 06/27/2021 12:45:11 [id number] MD KHADIJAH Giron [facility] [address] [place] [address] 1 08/01/2021 00:00:00 08/01/2021 12:49:08 [id number] MD KHADIJAH Giron [facility] [address] [place] [address] 1 10/31/2021 00:00:00 10/31/2021 12:46:35 [id number] MD ROCK [facility] [address] [place] [address] 1 05/01/2022 11:43:39 05/01/2022 12:14:24 Recurrent urinary tract infection 400537177 N39.0 continue trimpex [id number] MD DAVE [facility] [place] [address] [place] [address] 12/17/2022 14:25:57 12/17/2022 15:23:47 Pain in right hand 3251719015 42944 M79.279 [id number] Sridhar Springer MD [facility] [place] [address] [place] [address] 03/18/2023 14:16:56 03/18/2023 15:19:51 Pain of bilateral hands 5179770578 6534493 M79.643 Pain in right hand 62706 70042 24664 M79.641 Arthritis of first carpometacarpal joint of right hand 7029731718 400694 M13.086 [id number] MD DAVE [facility] [place] [address] [place] [address] 07/01/2023 14:00:34 07/01/2023 14:41:08 Arthritis of first carpometacarpal joint of right hand 9589935884 698342 M13.841 Pain in right hand 53613 09318 08596 M79.048 [id number] MD DAVE [facility] [place] [address] [place] [address] 10/21/2023 14:45:06 10/21/2023 15:43:17 Pain in right hand 2339660491 17838 M79.641 Pain of left hand 982397 5431 53825 M79.758 [id number] MD ALEJANDRO [facility] [place] [address] [place] [address] 12/15/2023 11:04:49 12/15/2023 11:38:45 [id number] Sridhar Springer MD [facility] [place] [address] [place] [address] 01/13/2024 13:46:11 01/13/2024 14:36:05 Arthritis of first carpometacarpal joint of right hand 2116054946 758302 M13.744 [id number] Sridhar Springer MD [facility] [place] [address] [place] [address] 03/02/2024 13:50:06 03/02/2024 14:45:59 Arthritis of first carpometacarpal joint of right hand 4693969258 529786 M13.841 Pain in right hand 20118 21010 77055 M79.281 [id number] Sridhar Springer MD [facility] [place] [address] [place] [address] 04/20/2024 13:51:43 04/20/2024 14:54:27 Arthritis of first carpometacarpal joint of right hand 7624701689 193718 M13.841 Pain of bi lateral hands 1626086152 5075353 M79.643 Health Concerns Section Related Observation LastModified by Organization Detai ls LastModified Time None Recorded Concern Status LastModified by Organization Details LastModified Time None Recorded Advance Directives Directive None Recorded Payers Encounter Date Sequence Insurance Name Policy Number Policy Noble Covered Member ID Noble Member ID Guarantor Name 10/21/2023 1 [place] Jessika Menjivar [id number] Jessika Menjivar 10/21/2023 2 [place] 33A Jessika Menjivar [id number] Jessika Menjivar 12/15/2023 1 [place] Menjivar [id number] Jessika Menjivar 12/15/2023 2 [place] 33A Jessika Menjivar [id number] Jessika Menjivar 01/13/2024 1 [place] Jessika Dickson [place] [id number] Jessika Menjivar 01/13/2024 2 [place] 33A Jessika Dickson [place] [id number] Jessika Menjivar 03/02/2024 1 [place] Dickson [place] [id number] Jessika Menjivar 03/02/2024 2 [place] 33A Jessika Dickson [place] [id number] Jessika Menjivar 04/20/2024 1 [place] Jess[place] Dickson [place] [id number] Jessika Menjivar 04/20/2024 2 [place] 33A Jessika Menjivar [id number] Jessika Menjivar OBGyn Episode No OBEpisode recorded.
--- OUTSIDE RECORDS SUMMARY | 2024-06-23 13:42 | XMS_ITS ---
Author Organization [facility] Address [address] [facility] [place] [address] Care Team Providers Care Photoengraving Printer Name Role Phone RISHABH MORFIN MD Primary Care Provider Cade Rose Unavailable [phone] REASON FOR VISIT Post Procedure Follow Up Call Encounters Encounter Location Date Provider Diagnosis [facility] [address] [place] [address] 05/07/2023 Cade Mccormack PLAN OF TREATMENT No Information
--- OUTSIDE RECORDS SUMMARY | 2024-06-23 13:43 | XMS_ITS | Data Portability ---
Author Organization [facility] Address [address] [place] [address] Care Team Providers Care Paper Cutter Name Role Phone YUNIORREYMUNDO CIFUENTESNEY Primary Care Provider Assessment Encounter Date Assessment Date Assessment LastModified by Organization Details LastModified Time 05/08/2021 05/08/2021 Annual gynecological exam performed. Patient will come back in a year unless there are new symptoms. Suggest Calcium with Vitamin D if not eating in diet. Patient advised to get annual flu shot. Recommend yearly physicals and preform monthly breast exams. Genetic testing is available for patients with family history of cancer. Engage in safe sexual practices, use condoms. Encouraged to have daily exercise. Avoid tobacco and illicit drugs, moderation of alcohol. If BMI greater than 25 dietary consult advised. If you have any questions please call or email. mammogram and dexa order given, refer to derm for skin check, [email or web address] Not available 05/09/2021 10:02:03 05/23/2022 05/23/2022 Annual gynecological exam performed. Patient will come back in a year unless there are new symptoms. Suggest Calcium with Vitamin D if not eating in diet. Patient advised to get annual flu shot. Recommend yearly physicals and preform monthly breast exams. Genetic testing is available for patients with family history of cancer. Engage in safe sexual practices, use condoms. Encouraged to have daily exercise. Avoid tobacco and illicit drugs, moderation of alcohol. If BMI greater than 25 dietary consult advised. If you have any questions please call or email. [email or web address] Not available 05/23/2022 13:00:03 08/05/2023 08/05/2023 Annual gynecological exam performed. Patient will come back in a year unless there are new symptoms. Suggested Calcium with Vitamin D 1200-1500mg daily. Patient advised to get an annual flu shot in the fall and she could obtain at [facility] or [facility] take care clinic. Also to obtain TDap vaccination if you have not had one in the last 10 years. Recommend yearly mammograms. Encouraged monthly self breast exams. Encourage safe sexual practices, to use condoms and limit partners if not already in a monogamous relationship. Engage in daily exercise of low impact aerobic exercise 45-60 minutes 4-5 times weekly. Avoid tobacco and illicit drugs as well as using moderation with alcohol intake less than 1-2 8 oz beverages daily. This lifestyle behavior pattern will lead to less health conditions and longer life span. If BMI greater than 25 weight watchers or dietary consult advised. All questions have been answered. Patient appears to understand information, but if you have any questions please call or respond to this email. pap not collected breast exam wnl plan mammogram/colono scopy Not available 08/05/2023 17:22:54 Plan of Treatment Reminders Order Date Submit Date Provider Last Modified By Organization Details Last Modified Time Details Appointments None record ed. Lab None record ed. Referral None record ed. Procedures None record ed. Surgeries None record ed. Imaging None record ed. Medication Orders None record ed. Patient TargetsNo targets recorded. Patient InstructionsNo instructions recorded. Reason for Referral None Reported. Results Created Date Observation Date Name Description Value Unit Range Abnormal Flag Note LastModifiedBy Organization Detail LastModifiedTime 05/09/19 22 05/08/2021 CULTU RE: URINE result report SEE RESULT S BELOW Test: Cultu re: Urine Speci men Sourc e: Urine - Clean Catch Speci men Type: Urine Speci men Date: 2021 5:39 PM Resul t Date: 2021 8:13 PM Resul t Statu s: Final resul t Abnor mal: No Resul ting Lab: [facility] [address] [facility] [address] Tel: CULTU RE ----- ----- ----- --- No growt h in 1 day (dete ction level of 10,00 0 colon ies / ml.) Not Available [facility] (Lab) [address] [facility], [place], [address], 05/09/2021 21:15:26 11/06/19 22 11/05/2021 CBC W/DIF F WBC 3.3 10'3/ uL 3.6-10 .2 low Not Available [facility] [place], [address], 11/06/2021 04:16:02 11/06/19 22 11/05/2021 CBC W/DIF F RBC 3.99 10'6/ uL (based on docume nted legal sex) 4.10-5 .30 low Not Available [facility] [place], [address], 11/06/2021 04:16:02 11/06/19 22 11/05/2021 CBC W/DIF F HGB 12.1 g/dL (based on docume nted legal sex) 11.9-1 5.8 Not Available [facility] [place], [address], 11/06/2021 04:16:02 11/06/19 22 11/05/2021 CBC W/DIF F HCT 37.7 % (based on docume nted legal sex) 37.4-4 8.3 Not Available [facility] [place], [address], 11/06/2021 04:16:02 11/06/19 22 11/05/2021 CBC W/DIF F MCV 94.5 fL 82.0-9 9.0 Not Available [facility] [place], [address], 11/06/2021 04:16:02 11/06/19 22 11/05/2021 CBC W/DIF F MCH 30.3 pg 27.0-3 3.0 Not Available [facility] [place], [address], 11/06/2021 04:16:02 11/06/1911/05/2021 CBC W/DIF F MCHC 32.1 g/dL 32.0-3 6.0 Not Available [facility] [place], [address], 11/06/2021 04:16:02 11/06/1911/05/2021 CBC W/DIF F RDW 13.8 % 11.0-1 5.0 Not Available [facility] [place], [address], 11/06/2021 04:16:02 11/06/1911/05/2021 CBC W/DIF F plt 168 10'3/ uL 150-45 0 Not Available [facility] [place], [address], 11/06/2021 04:16:02 11/06/1911/05/2021 CBC W/DIF F MPV 11.5 fL 9.8-12 .7 Not Available [facility] [place], [address], 11/06/2021 04:16:02 11/06/1911/05/2021 CBC W/DIF F NRBC's 0.0 % 0 Not Available [facility] [place], [address], 11/06/2021 04:16:02 11/06/1911/05/2021 CBC W/DIF F absolute NRBCs 0.0 10'3/ uL 0 Not Available [facility] [place], [address], 11/06/2021 04:16:02 11/06/19 22 11/05/2021 CBC W/DIF F neutrophils 63.1 % 37.0-7 2.0 Not Available [facility] [address] [place], [place] [address], [place], [address], 11/06/2021 04:16:02 11/06/19 22 11/05/2021 CBC W/DIF F lymphocytes 24.5 % 16.0-4 8.0 Not Available [facility] [address] [place], [place] [address], [place], [address], 11/06/2021 04:16:02 11/06/1911/05/2021 CBC W/DIF F monocytes 10.3 % 4.0-14 .0 Not Available [facility] [address] [place], [place] [address], [place], [address], 11/06/2021 04:16:02 11/06/19 22 11/05/2021 CBC W/DIF F eosinophils 0.9 % 0.0-9. 0 Not Available [facility] [address] [place] [address], [address], 11/06/2021 04:16:02 11/06/19 22 11/05/2021 CBC W/DIF F basophils 0.9 % 0.0-2. 0 Not Available [facility] [address] [place] [address], [address], 11/06/2021 04:16:02 11/06/19 22 11/05/2021 CBC W/DIF F immature granulocytes 0.3 % no define d refere nce range Not Available [facility] [address] [place], [place] [address], [address], 11/06/2021 04:16:02 11/06/19 22 11/05/2021 CBC W/DIF F absolute neutrophils 2.1 10'3/ uL 1.1-6. 0 Not Available [facility] [address] [place] [address], [address], 11/06/2021 04:16:02 11/06/19 22 11/05/2021 CBC W/DIF F absolute lymphocytes 0.8 10'3/ uL 0.7-3. 4 Not Available [facility] [address] [place] [address], [address], 11/06/2021 04:16:02 11/06/19 22 11/05/2021 CBC W/DIF F absolute monocytes 0.3 10'3/ uL 0.3-1. 0 Not Available [facility] [address] [place] [address], [address], 11/06/2021 04:16:02 11/06/19 22 11/05/2021 CBC W/DIF F absolute eosinophils 0.0 10'3/ uL 0.0-0. 6 Not Available [facility] [address] [place] [address], [address], 11/06/2021 04:16:02 11/06/19 22 11/05/2021 CBC W/DIF F absolute basophils 0.0 10'3/ uL 0.0-0. 1 Not Available [facility] [address] [place] [address], [address], 11/06/2021 04:16:02 11/06/19 22 11/05/2021 CBC W/DIF F absolute immature granulocytes 0.0 10'3/ uL 0.00-0 .10 2021 1:54 AM: P indic ates parti al resul ts on a panel have been relea sed. Addit ional resul ts will follo w. 2021 1:54 AM: This resul t has been final verif ied. No addit ional or floyd ed resul ts are expec ubaldo. Not Available [facility] [address] [place], [place] [address], [place], [address], 11/06/2021 04:16:02 11/06/19 22 11/05/2021 PHOSP HORUS phosphorus 3.0 mg/dL 2.5-5. 0 Not Available [facility] [place], [address], 11/06/2021 04:16:03 11/06/19 22 11/05/2021 CMP(C OMPRE HENSI VE METAB OLIC PANEL ) sodium 141 mmol/ L 133-14 6 Not Available [facility] [address] [place], [place] [address], [place], [address], 11/06/2021 04:16:03 11/06/1911/05/2021 CMP(C OMPRE HENSI VE METAB OLIC PANEL ) potassium 4.5 mmol/ L 3.5-5. 1 Not Available [facility] [address] [place], [place] [address], [address], 11/06/2021 04:16:03 11/06/1911/05/2021 CMP(C OMPRE HENSI VE METAB OLIC PANEL ) chloride 103 mmol/ L 98-107 Not Available [facility] [address] [place], [place] [address], [address], 11/06/2021 04:16:03 11/06/19 22 11/05/2021 CMP(C OMPRE HENSI VE METAB OLIC PANEL ) carbon dioxide 26 mmol/ L 21-31 Not Available [facility] [address] [place], [place] [address], [place], [address], 11/06/2021 04:16:03 11/06/1911/05/2021 CMP(C OMPRE HENSI VE METAB OLIC PANEL ) anion gap 12 mmol/ L 4-13 Not Available [facility] [address] [place], [place] [address], [address], 11/06/2021 04:16:03 11/06/19 22 11/05/2021 CMP(C OMPRE HENSI VE METAB OLIC PANEL ) blood urea nitrogen 12 mg/dL 7-25 Not Available [facility] [place], [address], 11/06/2021 04:16:03 11/06/19 22 11/05/2021 CMP(C OMPRE HENSI VE METAB OLIC PANEL ) creatinine 0.90 mg/dL 0.60-1 .30 Not Available [facility] [place], [address], 11/06/2021 04:16:03 11/06/19 22 11/05/2021 CMP(C OMPRE HENSI VE METAB OLIC PANEL ) egfrcr (CKD-epi 2020) 68 mL/mi n/1.7 3_m2 >=60 Not Available [facility] [address] [place], [place] [address], [address], 11/06/2021 04:16:03 11/06/19 22 11/05/2021 CMP(C OMPRE HENSI VE METAB OLIC PANEL ) calcium 9.6 mg/dL 8.3-10 .5 Not Available [facility] [address] [place], [place] [address], [address], 11/06/2021 04:16:03 11/06/19 22 11/05/2021 CMP(C OMPRE HENSI VE METAB OLIC PANEL ) glucose 80 mg/dL 70-100 Not Available [facility] [address] [place], [place] [address], [place], [address], 11/06/2021 04:16:03 11/06/19 22 11/05/2021 CMP(C OMPRE HENSI VE METAB OLIC PANEL ) protein, total 6.4 g/dL 6.4-8. 3 Not Available [facility] [address] [place], [place] [address], [address], 11/06/2021 04:16:03 11/06/19 22 11/05/2021 CMP(C OMPRE HENSI VE METAB OLIC PANEL ) albumin 4.3 g/dL 3.5-5. 0 Not Available [facility] [address] [place] [address], [address], 11/06/2021 04:16:03 11/06/19 22 11/05/2021 CMP(C OMPRE HENSI VE METAB OLIC PANEL ) ALT 18 units /L 9-43 Not Available [facility] [address] [place] [address], [address], 11/06/2021 04:16:03 11/06/19 22 11/05/2021 CMP(C OMPRE HENSI VE METAB OLIC PANEL ) alkaline phosphatase 68 units /L 34-104 Not Available [facility] [address] [place] [address], [address], 11/06/2021 04:16:03 11/06/19 22 11/05/2021 CMP(C OMPRE HENSI VE METAB OLIC PANEL ) AST 22 units /L 13-39 Not Available [facility] [address] [place] [address], [address], 11/06/2021 04:16:03 11/06/19 22 11/05/2021 CMP(C OMPRE HENSI VE METAB OLIC PANEL ) bilirubin, total 0.6 mg/dL 0.2-1. 2 Not Available [facility] [address] [place] [address], [address], 11/06/2021 04:16:03 11/06/19 22 11/05/2021 TSH, REFLE X FREE T4 TSH 3.86 uIU/m L 0.30-5 .33 Not Available [facility] [address] [facility], [place], [address], 11/06/2021 04:16:04 11/06/19 22 11/05/2021 VITAM IN D, 25-OH (TOTA L D2/D3 ) vitamin D, 25-hydroxy, total 48.6 NG/mL 30.0-1 00.0 Sugge stive of Defic iency : <20 ng/mL Sugge stive of Insuf ficie ncy: 20-29 ng/mL Sugge stive of Suffi cienc y: 30-10 0 ng/mL Sugge stive of Toxic ity: >150 ng/mL Not Available [facility] [address] [address] [facility], [place], [address], 11/06/2021 04:16:04 09/19/19 22 09/18/2021 MAMMO , scree yohannes, bilat eral No observ ation record ed. [facility] [address], [place], [address], 09/19/2021 10:22:28 10/26/19 22 10/25/2021 bone densi ty No observ ation record ed. [email or web address] [facility] [address], [place], [address], 11/01/2021 09:26:07 11/28/19 23 11/27/2022 MAMMO , scree yohannes, bilat eral No observ ation record ed. [email or web address] [facility] [address], [place], [address], 08/10/2023 16:26:34 Result Notes None recorded. Problems Name Problem SNOMED Code Status Onset Date Resolution Date Notes Provider Name and Address Organization Details Recorded Time Screenin g for malignan t neoplasm of cervix Completed 201405/08/2021 Screenin g for malignan t neoplasm s of the cervix;R ecorded Elsewher e: No Locat ion: [facility] S ource: EHR Java Lead Developer tab: N Practi ce ID: [id number] Favian lable Time: 09:30:00 AM Monika parra, [facility] 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 2 17:15:23 Acute upper respirat ory infectio n [id number] Completed 201205/08/2021 Upper Respirat ory Infectio n, Acute;Re corded Elsewher e: No Locat ion: [facility]: N Elaineti ce ID: 0001 Favian lable Time: 03:15:00 PM Monika parra [facility] 2 17:14:33 Leukocyt osis [id number] Completed 201305/08/2021 LEUKOCYT OSIS NOS;Donis rded Elsewher e: No Locat ion: [facility]: N Elaineti ce ID: 0001 Favian lable Time: 01:00:00 PM Monika parra [facility] 2 17:14:59 Screenin g for malignan t neoplasm of rectum Completed 201105/08/2021 Screenin g for malignan t neoplasm s of the rectum;R ecorded Elsewher e: No Locat ion: [facility]: N Elaineti ce ID: 0001 Favian lable Time: 03:15:00 PM Monika parra [facility] 2 17:15:[address] Concept Completed 201505/08/2021 Encntr for general adult medical exam w/o abnormal findings ;Recorde d Elsewher e: No Locat ion: [facility] S ource: EHR Java Lead Developer tab: N Elaineti ce ID: [id number] Favian lable Time: 03:00:00 PM Monika parra, [facility] 2 17:15:22 Speciali zed medical examinat ion Completed 201405/08/2021 Gynecolo gical Examinat ion;Donis rded Elsewher e: No Locat ion: [facility] S ource: EHR Java Lead Developer tab: N Elaineti ce ID: [id number] Favian lable Time: 09:30:00 AM Monika parra, [facility] 2 17:15:25 Microsco pic hematuri a [id number] Completed 201105/08/2021 MICROSCO PIC HEMATURI A;Record ed Elsewher e: No Locat ion: [facility] S ource: EHR Java Lead Developer tab: N Mahnaz ce ID: [id number] Favian lable Time: 03:15:00 PM Monika parra, [facility] 2 17:15:12 Sexually transmit ubaldo infectio us disease [id number] Completed 201305/08/2021 SPECIAL SCREEN EXAM HPV;Donis rded Elsewher e: No Locat ion: [facility] S ource: EHR Java Lead Developer tab: N Elaineti ce ID: [id number] Favian lable Time: 01:00:00 PM Monika parra [facility] 2 17:15:20 Adult health examinat ion Completed 201305/08/2021 ROUTINE MEDICAL EXAM;Rec orded Elsewher e: No Locat ion: [facility] S ource: EHR Java Lead Developer tab: N Elaineti ce ID: [id number] Favian lable Time: 01:00:00 PM Monika parra [facility] 2 17:14:35 Evaluati on finding Completed 201905/08/2021 Hematuri a, unspecif ied;Donis rded Elsewher e: No Locat ion: [facility] S ource: EHR Java Lead Developer tab: N Practi ce ID: [id number] Favian lable Time: 01:30:00 PM Monika parra [facility] 2 17:14:57 Breast lump [id number] Completed 201005/08/2021 Lump or mass in breast;P ractice ID: [id number] Monika parra [facility] 2 17:14:55 Screenin g for malignan t neoplasm of colon Completed 201005/08/2021 Special screenin g for malignan t neoplasm s, colon;Pr actice ID: [id number] Monika parra [facility] 2 17:15:17 Problem Notes None recorded. Procedures Surgical History Date Name Laterality Status Provider Name and Address Organization Details Recorded Time 08/05/19 24 Date of Last Pap Smear completed Monikavandana Baez [facility] 08/10/2023 16:18:32 11/28/19 23 Date of Last Mammogram completed Monika Baez [facility] 08/10/2023 16:28:41 10/26/19 22 Most Recent Bone Density completed Monikavandana Baez [facility] 11/01/2021 09:27:29 11/24/19 21 procedure on urinary bladder completed Monikavandana Baez [facility] 06/24/2021 11:52:24 02/23/19 21 Date of Last Colonoscopy completed Monikavandana Baez [facility] 05/13/2021 15:17:40 02/23/19 21 Colonoscopy completed [facility] 05/13/2021 15:33:22 02/23/19 14 complete repair of rotator cuff completed [facility] 05/13/2021 15:34:02 02/23/19 11 Colonoscopy completed [facility] 05/13/2021 15:33:10 02/23/19 08 Laparoscopy completed [facility] 08/11/2023 12:26:13 02/23/19 06 procedure on nose completed [facility] 05/13/2021 15:32:57 02/23/19 05 thumb surgery completed [facility] 05/13/2021 15:32:45 02/23/19 03 complete repair of rotator cuff completed [facility] 05/13/2021 15:32:21 02/23/18 96 Unlisted px foot/toes completed [facility] 05/13/2021 15:31:35 02/23/18 96 Unlisted px foot/toes completed [facility] 05/13/2021 15:31:39 02/23/18 83 hysterectomy completed [facility] 05/13/2021 15:29:07 02/23/18 83 Appendectomy completed [facility] 05/13/2021 15:31:51 02/23/18 74 cholecystectomy completed [facility] 05/13/2021 15:28:26 02/23/18 74 arthroplasty of left wrist completed [facility] 05/13/2021 15:29:38 02/23/18 70 arthroplasty of left wrist completed [facility] 05/13/2021 15:29:34 Imaging Results Imaging Date Name Status LastModified by Organiz ation Details LastModified Time 09/18/2021 MAMMO, screening, bilateral completed [facility] [address], [place], [address], 09/19/2021 10:22:28 10/25/2021 bone density completed [email or web address] [facility] [address], [place], [address], 11/01/2021 09:26:07 11/27/2022 MAMMO, screening, bilateral completed [email or web address] [facility] [address], [place], [address], 08/10/2023 16:26:34 Procedure Notes None recorded. Medical Equipment None Reported. Allergies Allergen ID Allergen Name Allergen Category Reaction Reaction Severity Criticality Documentation Date Start Date Code Code System Note Provider Name and Address Organization Details Recorded Time 43811 codeine medicatio n Not available Not available Not available 02/10/2020 2670 RxNorm Comme nt: [facility]; Not Available [facility] 0 14:17:53 36192 iodine medicatio n Not available Not available Not available 02/10/2020 5933 RxNorm Comme nt: [facility]at [facility]; Not Available [facility] 0 14:17:53 39910 tramadol medicatio n Not available Not available Not available 02/10/2020 94149 RxNorm Comme nt: [facility]at [facility]; Not Available [facility] 0 14:17:53 32763 Demerol medicatio n Not available Not available Not available 05/08/2021 39106 1 RxNorm Monika Baez [place], [place] - [facility] 2 17:13:13 Medications Name Sig Start Date Stop Date Status Note LastModified by Organization Details LastModified Time buspirone 5 mg tablet TAKE 1 TABLET BY MOUTH THREE TIMES DAILY active Not Available Not Available No t Available atorvasta tin 10 mg tablet TAKE 1 TABLET BY MOUTH DAILY active Not Available Not Available No t Available Paxil 10 mg/5 mL oral suspensio n take 10 millilit er by oral route every day 05/08 completed Prescrib ed Elsewher e: Yes Loca tion: [facility] odify By: felecia martin DateTime : 08/28/19 12 03:15:00 PM Not Available Not Available Not Available Elmiron 100 mg capsule take 1 capsule by oral route 3 times every day with water, 1 hour before or 2 hours after a meal 05/08 completed Prescrib ed Elsewher e: Yes Loca tion: [facility] odify By: felecia martin DateTime : 08/28/19 12 03:15:00 PM Not Available Not Available Not Available Zithromax Z-Héctor 250 mg tablet take 2 tablet (500MG) by oral route every day for 1 day then 1 tablet (250 mg) by oral route once daily for 4 days 09/07 completed Prescrib ed Elsewher e: No Locat ion: [facility] odify By: sameer spencer DateTime : 09/04/19 13 03:15:00 PM Not Available Not Available Not Available levofloxa nano 250 mg tablet TAKE 1 TABLET BY MOUTH DAILY 08/04 completed Not Available Not Available Not Available trimethop rim 100 mg tablet TAKE 1 TABLET BY MOUTH DAILY active Not Available Not Available No t Available sulfameth oxazole 800 mg-trimet hoprim 160 mg tablet TAKE 1 TABLET BY MOUTH EVERY 12 HOURS FOR 10 DAYS 05/08 completed Not Available Not Available Not Available lorazepam 0.5 mg tablet TAKE 1 TABLET BY MOUTH TWICE DAILY NEEDED FOR ANXIETY active Not Available Not Available No t Available triamcino lone acetonide 0.025 % topical cream 05/23 completed Not Available Not Available Not Available phenazopy ridine 100 mg tablet TAKE 1 TABLET BY MOUTH THREE TIMES DAILY FOR 2 DAYS 05/23 completed Not Available Not Available Not Available pantopraz ole 40 mg tablet,de layed release take 1 tablet by oral route every day 02/25 completed Prescrib ed Elsewher e: Yes Loca tion: Shi ferreira [facility] odify By: alverto martin DateTime : 09/21/19 15 09:30:00 AM Not Available Not Available Not Available Wellbutri n 75 mg tablet take 1 tablet by oral route 3 times every day 02/25 completed Prescrib ed Elsewher e: Yes Loca tion: Shi ferreira [facility] odify By: alverto Liu ter DateTime : 08/28/19 12 03:15:00 PM Not Available Not Available Not Available flecainid e 50 mg tablet take 1 tablet by oral route every 12 hours 05/08 completed Prescrib ed Elsewher e: Yes Loca tion: Shi ferreira [facility] odify By: alverto Liu ter DateTime : 02/25/19 01:30:00 PM Not Available Not Available Not Available flecainid e 100 mg tablet TAKE 1 TABLET BY MOUTH TWICE DAILY active Not Available Not Available No t Available gabapenti n 300 mg capsule TAKE 1 CAPSULE BY MOUTH TWICE DAILY 05/08 completed Not Available Not Available Not Available omeprazol e 20 mg capsule,d elayed release TAKE 1 CAPSULE BY MOUTH DAILY active Not Available Not Available No t Available metoprolo l succinate ER 25 mg tablet,ex tended release 24 hr take 1 tablet by oral route every day active Not Available Not Available No t Available methylpre dnisolone 4 mg tablets in a dose pack FOLLOW PACKAGE DIRECTIO NS active Not Available Not Available No t Available paroxetin e 40 mg tablet TAKE 1 TABLET BY MOUTH AT BEDTIME active Not Available Not Available No t Available Vitamin D2 1,250 mcg (50,000 unit) capsule take 1 capsule by oral route every week 09/24 completed Prescrib ed Elsewher e: Yes [facility] By: harman spencer DateTime : 08/27/19 12 12:37:33 PM Not Available Not Available Not Available fluticaso ne propionat e 50 mcg/actua tion nasal spray,bruce pension SHAKE LIQUID AND USE 1 SPRAY IN EACH NOSTRIL TWICE DAILY active Not Available Not Available No t Available doxycycli ne hyclate 100 mg tablet TAKE 1 TABLET BY MOUTH TWICE DAILY 05/23 completed Not Available Not Available Not Available cyclobenz aprine 5 mg tablet TAKE 1 TABLET BY MOUTH EVERY 8 HOURS 08/04 completed Not Available Not Available Not Available nitrofura ntoin monohydra te/macroc rystals 100 mg capsule TAKE 1 CAPSULE BY MOUTH TWICE DAILY 05/23 completed Not Available Not Available Not Available Calcio Imani 500 mg tablet 09/20 completed Prescrib ed Elsewher e: Yes Loca tion: [facility] odify By: harman spencer DateTime : 08/27/19 12 12:37:33 PM Not Available Not Available Not Available Sulfameth oxazole-T rimethopr im 05/23 completed Not Available Not Available Not Available B Complex 100 100 mg-2 mg-100 mg-2mg-2m g/mL injectabl e solution 09/20 completed Prescrib ed Elsewher e: Yes Loca tion: [facility] odify By: harman spencer DateTime : 08/28/19 12 03:15:00 PM Not Available Not Available Not Available B12 5,000 mcg-100 mcg sublingua l lozenge 09/20 completed Prescrib ed Elsewher e: Yes Loca tion: [facility] odify By: harman spencer DateTime : 08/27/19 12 12:37:33 PM Not Available Not Available Not Available Eliquis 5 mg tablet TAKE 1 TABLET BY MOUTH TWICE DAILY active Not Available Not Available No t Available BinaxNOW COVID-19 Ag Self Test kit TEST DIRECTED TODAY 05/23 completed Not Available Not Available Not Available Vitals Date Recorded Body height Body mass index (BMI) Body weight Systolic blood pressure Diastolic blood pressure Provider Name and Address Organization Details Last Updated DateTime 05/08/2021 160.66 cm 20.2 kg/m2 03895.12 g 107 mm[Hg] 69 mm[Hg] Monika Baez [place] [facility] 2 17:12:49 Date Recorded Body height Body mass index (BMI) Body weight Systolic blood pressure Diastolic blood pressure Provider Name and Address Organization Details Last Updated DateTime 05/23/2022 160.66 cm 21.1 kg/m2 69540.08 g 96 mm[Hg] 41 mm[Hg] Monika Baez [facility] 3 12:39:48 Date Recorded Body height Body mass index (BMI) Body weight Systolic blood pressure Diastolic blood pressure Provider Name and Address Organization Details Last Updated DateTime 08/05/2023 160.66 cm 22.1 kg/m2 46302.64 g 105 mm[Hg] 56 mm[Hg] Monika Baez [facility] 4 16:59:57 Social History Question Answer Notes LastModified by Organizat ion Details LastModified Time Tobacco Smoking Status Never Smoker Yadira No aida, [facility] 05/23/2022 12:23:21 Do You Have An Advance Directive? Yes [email or web address] Information n ot available 05/08/2021 What Is Your Level Of Alcohol Consumption? Occasional Information not available 05/08/2021 Are You Blind Or Do You Have Difficulty Seeing? No [email or web address] Information n ot available 05/08/2021 What Is Your Level Of Caffeine Consumption? Moderate [email or web address] Information not available 05/08/2021 In The 14 Days Before Symptom Onset, Have You Had Close Contact With A Laboratory-confirm ed COVID-19 While That Case Was Ill? No [email or web address] Information n ot available 05/08/2021 In The 14 Days Before Symptom Onset, Have You Had Close Contact With A Person Who Is Under Investigation For COVID-19 While That Person Was Ill? No [email or web address] Information not available 05/08/2021 Have You Been To An Area Known To Be High Risk For COVID-19? No [email or web address] Information not available 05/08/2021 Are You Deaf Or Do You Have Serious Difficulty Hearing? No [email or web address] Information not available 05/08/2021 What Type Of Diet Are You Following? REGULAR [email or web address] Information n ot available 05/08/2021 What Is The Highest Grade Or Level Of School You Have Completed Or The Highest Degree You Have Received? [id number] [email or web address] Information not available 05/08/2021 What Is Your Occupation? Retired [email or web address] Information not available 05/08/2021 Are There Any Guns Present In Your Home? No [email or web address] Information not available 05/08/2021 Have You Ever Been Counseled For Unhealthy Alcohol Use? No [email or web address] Information not available 05/23/2022 Do You Use Your Seat Belt Or Car Seat Routinely? Yes [email or web address] Information not available 05/08/2021 Do You Have Smoke And Carbon Monoxide Detectors In Your Home? Yes [email or web address] Information not available 05/08/2021 How Much Tobacco Do You Smoke? No Information not available 05/08/2021 Do You Feel Stressed (tense, Restless, Nervous, Or Anxious, Or Unable To Sleep At Night)? RS15360-5 [email or web address] Information not available 05/08/2021 Do You Use Any Illicit Or Recreational Drugs? No [email or web address] Information not available 05/08/2021 Do You Use Sunscreen Routinely? No [email or web address] Information not available 05/08/2021 Has Tobacco Cessation Counseling Been Provided? No [email or web address] Information not available 05/23/2022 Have You Used IV Drugs? No [email or web address] Information not available 05/08/2021 Do You Or Have You Ever Used Any Other Forms Of Tobacco Or Nicotine? No [email or web address] Information not available 05/23/2022 Sex: Unknown Functional Status Question Answer Note LastModified by Organizat ion Details LastModified Time Do you have difficulty walking or climbing stairs? No [email or web address] Information not available 05/23/2022 Are you able to walk? YESWOREST [email or web address] Information not available 05/08/2021 Are you able to care for yourself? Yes [email or web address] Information not available 05/23/2022 Do you have difficulty dressing or bathing? No [email or web address] Information not available 05/23/2022 What is your exercise level? Occasional [email or web address] Information not available 05/08/2021 Mental Status None recorded. Family History Relationship Description Onset Age of this Age Resolved Age Notes LastModified by Organization Details LastModified Time Father Malignant tumor of colon [email or web address] Not available 05/13 15:19:22 Maternal Grandfather Malignant tumor of pancreas [email or web address] Not available 2023 16:03:00 Maternal Grandmother Malignant neoplastic disease refrac tory cancer [email or web address] Not available 05/13/2021 15:21:04 Maternal Grandmother Leukemia [email or web address] Not available 07/24 16:03:00 Paternal Grandmother Malignant tumor of stomach Not available 2023 16:03:00 Mother Malignant tumor of breast Not available 05/13 15:21:38 Mother Anemia [email or web address] Not available 05/13/2021 15:22:24 Mother Disorder of thyroid gland [email or web address] Not available 05/13 15:22:35 Mother Malignant neoplasm of lung [email or web address] Not available 05/13 15:23:04 Son Diabetes mellitus [email or web address] Not available 05/13 15:22:04 Unspecified Relation Hypertensive disorder [email or web address] Not available 05/13 15:22:15 Brother Disorder of thyroid gland [email or web address] Not available 05/13 15:22:49 Sister Seizure disorder [email or web address] Not available 2023 16:03:00 Notes:Brother: Thyroid disea se Family history of Hypertension, Family history of Diabetes mellitus Father: Cancer, colon Maternal grandfather: Cancer, pancreatic Maternal grandmother: refractory ca Mother: Thyroid disease, Anemia, Cancer, lung, Cancer, breast Paternal grandmother: cancer, gastric Sister: Seizure disorder Medical History Condition Response Allergies (Food, seasonal, environmental ) N Other Y Breast Cancer N Drug/Latex Allergies/Reactions Y Blood Transfusion N Dermatologic Disorders N Lung Disease N Defects or Inherited Disease N Breast Problem Y Gestational Diabetes N Hematologic disorders N Anesthesia Complications N History of STI N Deep Vein Thrombosis N Polycystic ovary syndrome N Anxiety Disorder Y Autoimmune disease N Arthritis N Infertility N Polyps Y Acid Reflux (GERD) Y History of abnormal pap N Cancer N Stroke N Varicosities N Neurologic/Epilepsy N Endometriosis N High Cholesterol Y Headaches N Fibromyalgia N Kidney Disease Y Heart Problems Y Kidney or Bladder Problems Y Thyroid Problems N GI Problems Y Eating Disorder N Anemia N Art (IVF or FET) N Psychiatric Illness N Ovarian Cancer N Diabetes N Pulmonary (TB, Asthma) N Hepatitis/Liver Disease N No Past Medical History N Eczema N Urinary Tract Infection N Abuse/Domestic Violence N Asthma N Trauma/Violence N Depression/ depression Y Heart Disease Y Pre-Eclampsia N Hypertension N Osteoporosis Y Thrombophilias N Gynecological History Statement/Question Response Abnormal Pap N Date of Last Mammogram 11/27/2022 Date of LMP 02/23/1982 N STIs/STDs N HPV Vaccine N Duration of Flow (days) 7 Current Control Method Hysterectom y Age at First Child 21 If Post Menopausal, Age at Menopause 32 Date of Last Colonoscopy 02/24/2020 Frequency of Cycle (Q days) 28 Most Recent Bone Density 10/25/2021 Sexually Active? N Age of first menstrual cycle 12 Date of Last Pap Smear 08/05/2023 Sexual Problems? N LMP Approximate Y Obstetrics History GPAL:G 1 P 1 0 0 1 Type Value Full Term 1 Living 1 Total 1 Past Encounters Encounter ID Performer Location Encounter Start Date Encounter Closed Date Diagnosis/Indication Diagnosis SNOMED-CT Code Diagnosis ICD10 Code Diagnosis Note [id number] Bonnie Nichols [facility] [address],[place] [address] 05/08/2021 16:44:26 05/14/2021 15:53:10 Gynecologic examination 12020622 Z01.419 [id number] Bonnie Nichols [place] [address],[place] [address] 05/23/2022 12:23:16 05/23/2022 14:04:16 Gynecologic examination 40510272 Z01.419 [id number] Bonnie Nichols [facility] [address],[place] [address] 08/05/2023 16:00:34 08/05/2023 17:28:34 Gynecologic examination 50773817 Z01.419 Health Concerns Section Related Observation LastModified by Organization Detai ls LastModified Time None Recorded Concern Status LastModified by Organization Details LastModified Time None Recorded Advance Directives Directive Y: Payers Encounter Date Sequence Insurance Name Policy Number Policy Noble Covered Member ID Noble Member ID Guarantor Name 05/08/2021 1 [place] Jessika Menjivar [id number] Jessika Menjivar 05/08/2021 2 [place] [employer]GRAM 111 Jessika Forman [place] [id number] Jessika Forman [place] 05/23/2022 1 [place] Jessika Menjivar [id number] Jessika Forman [place] 05/23/2022 2 [place] [employer]EE [employer]GRAM 111 Jessika Forman [place] [id number] Jessika Forman [place] 08/05/2023 1 [place] Jessika Forman [place] [id number] Jessika Forman [place] 08/05/2023 2 [employer] [employer]EE PROGRAM 111 Jessika Forman [place] [id number] Jessika Forman [place] Notes Date Note Type Note Provider Name and Address Organization Details Recorded Time 05/08/2021 text/html Annual GYNReport ed bypatient.Breast:No breast pain; No breast lump; No nipple discharge Sexual complaints:No sexual complaints; No pain during intercourse; Normal libido Menopausal Symptoms:No menopausal symptoms; Normal vaginal lubrication Psychological symptoms:Depression; Anxiety; tx by pcp Preventive measures:Encourage self breast examination; Encourage regular exercise; Encourage no tobacco use; Encourage regular mammograms starting age 39Notes:hysterectomy for endometriosis, reestablishing care after living in [facility] for 2 years, Bonnie Nichols CNM [address], [place], [address], [facility] 05/09/2021 10:03:50 05/23/2022 text/html Annual GYNReport ed bypatient.History:no gynecologic complaints; no change in interval history Breast:No breast pain; No breast lump; No nipple discharge Sexual complaints:No sexual complaints; No pain during intercourse; Normal libido Menopausal Symptoms:No menopausal symptoms; Normal vaginal lubrication Psychological symptoms:No depression; No anxiety; No PMDD Preventive measures:Encourage self breast examination; Encourage regular exercise; Encourage no tobacco useNotes:new drag down, following labs, rec call pcp manages bp meds, pt says up to date on testing Bonnie Nichols CNM [address], [place], [address], [facility] 05/23/2022 13:51:38 08/05/2023 text/html Annual GYNReport ed bypatient.History:no gynecologic complaints Menstrual cycle:Normal menses Urinary symptoms:No hematuria; No incontinence Vulva:No genital lesion Vagina:Normal vaginal discharge Breast:No breast pain; No breast lump; No nipple discharge Sexual complaints:No sexual complaints; No pain during intercourse; Normal libido Menopausal Symptoms:No menopausal symptoms; Normal vaginal lubrication Psychological symptoms:No depression; No anxiety; No PMDD Preventive measures:Encourage self breast examination; Encourage regular exercise; Encourage no tobacco useNotes:doing ok, 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 08/05/2023 17:26:41 OBGyn Episode Ob Episode Information Episode Created Date Number of Fetuses Patient Bloodtype Patient rh Status Prepregnancy Weight lbs Domestic Partner Domestic Partner Phone Father Name [employer] E[employer]ctor Status 05/14/19 22 1 CLOSED Fetus Data First Name Last Name Admitted to NICU Weight (g) Sex Living Outcome Pediatric Complications Fetus ID Race Codes Race Delivery Type 3883.65 4704 M Full Term [id number] Vaginal Delivery Adam Calculation Initial Adam Date Initial Exam Date Initial Exam Provider Initial Ultrasound Date Last Menstrual Period Date Ultra Sound Weeks Gestation 0 Eighteen To Twenty Week Adam Update Ultra Sound Date Fundal Height At Umbil Quickening Date Ultra Sound Latest Weeks Gestation Final Adam Confirmed By Final Adam Confirmed Date Final Adam Date Ultra Sound Latest Days Gestation 0 0 Menstrual History Last Menstrual Date Menses Monthly On Bcp Conception Prior Menses Frequency Hcg Plus Date Menarche Onset Age Delivery Information Delivery Date Delivery Type Labor Anesthesia Weeks Gestation Incision Type Labor Labor Length Hrs Delivered By Post Complications Tubal Sterilization Discharge Date Comments 2 40 Discharge Information Feeding Method Contraceptive Method Maternal HG B and HCT Levels
--- OUTSIDE RECORDS SUMMARY | 2024-06-23 13:44 | XMS_ITS ---
Author Organization [facility] Address [address] [place] [address] Care Team Providers Care Overhead Door Technician Name Role Phone RISHABH MORFIN MD Primary Care Provider Cade Rose Unavailable [phone] ALLERGIES Allergen (clinical drug ingredient) Drug/Non Drug [...] upset Drug Allergy Act hilary REASON FOR VISIT Follow Up, Left > Right Neck Pain MEDICATIONS Medication SIG (Take, Route, Frequency, Duration) Notes Start Date End Date Status busPIRone HCl 5 MG TAKE 1 TABLET BY MOUTH THREE TIMES DAILY Oral for 30 F419,Unavaila ble Active Omeprazole 20 MG 1 capsule 30 minutes before morning meal Oral Once a day Active methylPREDNISolone 4 MG as directed Orally 023 Active Atorvastatin Calcium 10 MG TAKE 1 TABLET [...] BY MOUTH DAILY Oral for 30 Active Alendronate Sodium 70 MG 1 tablet [...] 1 tablet Orally Once a day Active Trimethoprim 100 MG 1 tablet Orally Once a day for 10 day(s) Active VITAL SIGNS Blood pressure systolic 106 mm Hg 06/02/19 24 Blood pressure diastolic 55 mm Hg 024 Heart Rate 55 /min 06/02/2023 Respiratory Rate 16 /min 06/02/2023 Height 5 ft 4 in in 06/02/2023 Weight 115 lbs 06/02/2023 BMI 19.74 kg/m2 06/02/2023 Encounters Encounter Location Date Provider Diagnosis [facility] [address] [place] [id number] 06/02/2023 Cade Mccormack Spondylosis without myelopathy or radiculopathy, cervical region M47.812 ; Radiculopathy, cervical region M54.12 ; Spondylosis without myelopathy or radiculopathy, lumbar region M47.816 ; Spondylosis without myelopathy or radiculopathy, 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 , She currently denies a need for any injections or interventions at this time. She would like to return to the office in 1 month for follow-up and reevaluation of her pain at that time. 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 Mccormack. I have discussed and reviewed all of the pertinent history, physical examination findings and diagnostic imaging results with him. As a result of our discussion, Dr. Mccormack has determined the above assessment and directed the treatment plan. This note was dictated using voice recognition software and therefore inadvertent errors may have occurred. This note was dictated by ALBERTO Barnes PLAN OF TREATMENT Treatment Notes Assessment Notes Radiculopathy, cervical region Patient daniel ecently underwent TYSHAWN done on 05/06/23 and reports a 2 week 85% reduction of her neck pain since this procedure. , She currently denies a need for any injections or interventions at this time. She would like to return to the office in 1 month for follow-up and reevaluation of her pain at that time. Other The above-named adnie ent was evaluated in conjunction with Dr. Mccormack. I have discussed and reviewed all of the pertinent history, physical examination findings and diagnostic imaging results with him. As a result of our discussion, Dr. Mccormack has determined the above assessment and directed the treatment plan. This note was dictated using voice recognition software and therefore inadvertent errors may have occurred. This note was dictated by ALBERTO Barnes Next Appt Details Follow Up: 4 Weeks OPV, Reas on: Progress Notes * Examination Category Sub-Category Detail Notes Examination/ Pre-Anesthesia Assessment General: The patient is alert and katherine ented X 3 in moderate distress secondary to pain HEENT: Normocephalic, atrau matic. PERRL. The oropharynx is clear Neck: There is limited ran ge of motion of the cervical spine to 60 degrees with extension and lateral rotation bilaterally. There is tenderness to palpation over the bilateral C3-4 through C7-T1 facet joints. Extension and lateral rotation of the cervical spine reproduces the patients typical axial neck pain. The axial loading test is positive. There is diffuse tenderness to palpation over the bilateral cervical paraspinal muscles and significant muscle spasm throughout. There are palpable myofascial trigger points within the body of the trapezius muscles bilaterally Heart: Regular rate and rhy thm Chest: Clear to auscultatio n bilaterally Abdomen: Soft and benign Musculoskeletal and Extremities: There i s tenderness to palpation over the bilateral L2-3 through L5-S1 facet joints. Extension and lateral rotation of the lumbar spine reproduces the patient's typical axial low back pain. Barry's, Stapleton's and Gaenslen's are positive bilaterally. There is tenderness palpation over the bilateral sacroiliac joints and greater trochanters. There is tenderness to palpation over the bilateral lumbar paraspinal muscles and palpable myofascial trigger points throughout. There is weakness and atrophy of the bilateral lumbar paraspinal muscles Neurological: There is positive st raight leg raising bilaterally and Spurling sign is positive bilaterally. There are no focal strength deficits in the bilateral upper and lower extremities Skin: Clean, dry and intac t Psychiatric: Mood and affect are normal History and Physical Notes * HPI (History of Present Illness) Category Sub-Category Detail Notes Pain Management Radiographic Imaging Cervical sp ine MRI without contrast 03/30/20: C2-3: Mild diffuse disc bulge. Uncovertebral joint arthropathy. Facet joint arthropathy. Mild bilateral neuroforaminal stenosis. C3-4: Mild diffuse disc bulge. Bilateral mild facet arthropathy. C4-5: Mild diffuse disc bulge. Mild to moderate facet arthropathy. Mild to moderate bilateral, left greater than right neuroforaminal stenosis and mild central canal stenosis. C5-6: Mild diffuse disc bulge. Bilateral moderate facet arthropathy. Mild to moderate left and mild right neuroforaminal stenosis. Mild central canal stenosis. C6-C7: Mild diffuse disc bulge. Bilateral facet arthropathy. Mild to moderate left neuroforaminal stenosis and mild central canal stenosis. C7-T1 facet arthropathy. Lumbar spine MRI without contrast. 03/30/20: L1-2: Bilateral facet arthropathy. L2-3: Bulging disks. Bilateral facet arthropathy. L3-4 mild to moderate diffuse disc bulge. Bilateral facet arthropathy. Mild right neuroforaminal stenosis. L4-L5: Mild diffuse disc bulge. Facet arthropathy. Bilateral neuroforaminal stenosis. Mild central canal stenosis. L5-S1: Mild diffuse disc bulge. Bilateral facet arthropathy. Right neuroforaminal stenosis. Assessment and Follow-up: Follow-up Plan documen ubaldo:: Yes [facility] Quality 2020: [facility] Documented:: Compliant
--- OUTSIDE RECORDS SUMMARY | 2024-06-23 13:45 | XMS_ITS ---
Author Organization [facility] Address [address] [place] [address] PATRICK Harris [address] Care Team Providers Care History Instructor Name Role Phone RISHABH MORFIN MD Primary Care Provider Cade Rose Unavailable [phone] ALLERGIES Allergen (clinical drug ingredient) Drug/Non Drug [...] Drug Allergy Act hilary REASON FOR VISIT Right = Left Neck Pain, Left > Right Upper Extremity Pain MEDICATIONS Medication SIG (Take, Route, Frequency, Duration) Notes Start Date End Date Status Flecainide Acetate 100 MG as directed Orally Active Eliquis 5 MG as directed Orally Active LORazepam 0.5 MG 1 tablet Orally Twice a day Active Trimethoprim 100 MG 1 tablet Orally Once a day for 10 day(s) Active Alendronate Sodium 70 MG 1 tablet 30 minutes before the first food, beverage or medicine of the day with plain water Orally Once a day Active PARoxetine HCl 40 MG TAKE 1 TABLET BY MOUTH DAILY Oral for 30 Active busPIRone HCl 5 MG TAKE 1 TABLET BY MOUTH THREE TIMES DAILY Oral for 30 F419,Unavaila ble Active Vitamin D2 Active Omeprazole 20 MG Oral for 90 A ctive methylPREDNISolone 4 MG as directed Orally 023 Active Paxil 40 MG 1 tablet in the morning Orally Once a day Active Metoprolol Succinate ER 25 MG 1 tablet Orally Once a day Active Pantoprazole Sodium 40 MG 1 tablet Orall y Once a day Active Lipitor 10 MG 1 tablet Orally Once a day Active PROBLEMS Problem Type ICD Code Onset Dates Problem Status W/U Status Risk SNOMED Code Notes Problem Radiculopathy, cervicothoracic region (M54.13) Active confirmed Cervical radiculopathy (07098852) VITAL SIGNS Blood pressure systolic 130 mm Hg 05/06/19 24 Blood pressure diastolic 57 mm Hg 024 Heart Rate 54 /min 05/06/2023 Respiratory Rate 18 /min 05/06/2023 Height 5 ft 4 in in 05/06/2023 Weight 115 lbs 05/06/2023 BMI 19.74 kg/m2 05/06/2023 Oximetry 98 % 05/06/2023 Post procedure vitals BP 131 /56 HR 51 R 16 SPO2 98%. Patient discharged ambulatory with self to home in no acute distress Encounters Encounter Location Date Provider Diagnosis [facility] [address] [place] [address] [place] [address] 05/06/2023 Cade Solizick Radiculopathy, cervical region M54.12 ; Radiculopathy, cervicothoracic region M54.13 and Spinal stenosis, cervical region M48.02 ASSESSMENTS Encounter Date Diagnosis Assessment Notes Treatment Notes Treatment Clinical Notes 05/06/2023 Radiculopathy, cervical region (ICD-10 - M54.12) 05/06/2023 Radiculopathy, cervicothoracic region (ICD-10 - M54.13) 05/06/2023 Spinal stenosis, cervical region (ICD-10 - M48.02) 05/06/2023 Other The patient voiced understanding of the treatment plan and all questions were addressed. Obtain informed consent: Cervical Epidural Steroid Injection under fluoroscopy. Monitor pulse, blood pressure and SaO2 before, after and as needed during procedure. Verify if the patient is currently taking blood thinner. Verify patients is not currently on antibiotics for infection. Patient may drive home. CARE PLAN: Knowledge deficit: Will verbalize understanding of the proposed procedure, including risk of electrical burn, complications and benefits of the procedure? Will the patient exhibit understanding of the discharge instructions? Safety: The potential for injury related to surgery was assessed; Fire risk score determined, test completed if applicable. Risk for injury related to wrong patient, site, procedure. TIME OUT for safety of patient and includes patient name, , procedure site, side, level, allergies, blood thinners, antibiotics, surgical counts, consents correct and signed etc. Risk for infection: Implements aseptic technique, protects from cross-contamination , performs skin preparations. Pain/Discomfort: Patient verbalizes acceptable level of pain relief prior to discharge and the ability to engage in desired activity. I HAVE REVIEWED THE PATIENT'S MEDICATION LIST AND HAVE RECONCILED THE ABOVE MEDICATIONS. PATIENT GOALS AND SAFETY CONCERNS HAVE BEEN ADDRESSED. CLYDE initials CR. Lam Prince was present for the entire interview and physical examination, acting as a scribe for Dr. Cade Mccormack. Some of the above chart information was entered by Lam Prince. Dr. Mccormack has reviewed and agrees with this portion of the documentation. The remainder of the above note was dictated by Dr. Mccormack using voice recognition software and therefore inadvertent errors may have occurred. As a result, this note may not represent a completely accurate interpretation of the intended dictation provided. PLAN OF TREATMENT Treatment Notes Assessment Notes Other The patient voiced understanding of the treatment plan and all questions were addressed. Obtain informed consent: Cervical Epidural Steroid Injection under fluoroscopy. Monitor pulse, blood pressure and SaO2 before, after and as needed during procedure. Verify if the patient is currently taking blood thinner. Verify patients is not currently on antibiotics for infection. Patient may drive home. CARE PLAN: Knowledge deficit: Will verbalize understanding of the proposed procedure, including risk of electrical burn, complications and benefits of the procedure? Will the patient exhibit understanding of the discharge instructions? Safety: The potential for injury related to surgery was assessed; Fire risk score determined, test completed if applicable. Risk for injury related to wrong patient, site, procedure. TIME OUT for safety of patient and includes patient name, , procedure site, side, level, allergies, blood thinners, antibiotics, surgical counts, consents correct and signed etc. Risk for infection: Implements aseptic technique, protects from cross-contamination, performs skin preparations. Pain/Discomfort: Patient verbalizes acceptable level of pain relief prior to discharge and the ability to engage in desired activity. I HAVE REVIEWED THE PATIENT'S MEDICATION LIST AND HAVE RECONCILED THE ABOVE MEDICATIONS. PATIENT GOALS AND SAFETY CONCERNS HAVE BEEN ADDRESSED. CLYDE Fritz Pilipovic was present for the entire interview and physical examination, acting as a scribe for Dr. Cade Mccormack. Some of the above chart information was entered by Lam Prince. Dr. Mccormack has reviewed and agrees with this portion of the documentation. The remainder of the above note was dictated by Dr. Mccormack using voice recognition software and therefore inadvertent errors may have occurred. As a result, this note may not represent a completely accurate interpretation of the intended dictation provided. Next Appt Details Follow Up: Patient has OPV 0 06/02/23, Reason: Procedure Notes * Category Sub-Category Detail Notes Cervical Epidural Steroid In jection Under Fluoroscopy Anesthesia: Local without IV sedation Operative Technique: After the risks, be nefits, alternative treatment options and potential complications related to the procedure were discussed, informed consent was obtained. The specific risks of this procedure including pain, bleeding, infection, spinal headache, persistent spinal fluid leak, epidural hematoma, nerve damage, spinal cord injury, paralysis, total spinal anesthesia resulting in cardiopulmonary arrest/, respiratory distress requiring intubation, insomnia, hyperglycemia, hair loss, muscle atrophy, skin depigmentation, weight gain, fluid retention, adrenal suppression, immunosuppression, osteoporosis resulting in fractures, avascular necrosis of the hip, cataracts, bleeding gastric ulcer, worsening pain and failure to relieve pain were discussed and the patient is agreeable to proceeding at this time. The patient was placed in the prone position on the fluoroscopy table and standard ASA monitors were applied. The neck was prepped and draped in the usual sterile fashion with chlorhexidine 2%/IPA 70%. The C7-T1 interspace was identified under x-ray guidance and the skin and subcutaneous structures above it were anesthetized with 3 mL of 1% Preservative-Free lidocaine through a 25 g 1.5 inch needle and then through the epidural needle. A 20 gauge 9 mm Touhy epidural needle was inserted under fluoroscopic guidance. Multiple AP and lateral views were taken to ensure correct needle tip placement. Using a ENA technique, 1 mL of Preservative-Free normal saline was injected into the posterior epidural space. After negative aspiration for blood, air or CSF, 2 mL of Omnipaque 240 contrast dye was injected for an epidurogram under live fluoroscopy (except in cases of contrast allergy) showing good spread within the epidural space. No intravascular or intrathecal spread was noted. A solution of 10 mg of Dexamethasone (10 mg/mL) plus 2 mL of Preservative-Free normal saline was mixed and after negative aspiration this solution was slowly injected into the epidural space without resistance. The needle was removed, the skin was cleaned and a band-aid was placed over the puncture site. The patient tolerated the procedure well, was able to ambulate without difficulty and was monitored for 20 minutes. The patient remained hemodynamically and neurologically stable. No apparent complications were observed. Postoperative instructions were reviewed with the patient. 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 X-ray time: 6 seconds Safe Surgery Practices First Critical Point Val ent identified by verbal and ID band. Surgical site marked. Assessement of allergies, airway and aspiration risk. Assessed if patient is on anticoagulant. Operataive Consent signed. Patient has discussed procedure with physician, Marlyn Cruz 05/06/2023 12:00:03 PM > Second Critical Point TIME OUT: Confirm patient identity, procedure and surgical incision site. Patient in proper position and safety straps placed appropriately. ASA score: 2 Fire Risk Score: 1. Alcohol based prep solution had significant time for fumes to dissipate. Confirm surgical child study team director and roles. Anticipated critical events. Essential imaging displayed as appropriate. Fluoroscopy precautions taken if applicable. Equipment and supplies in room. Verify patient is not if applicable, Marlyn Cruz 05/06/2023 12:00:06 PM > Third Critical Point SAFE SURGERY PRACTI LEYDI-POST: Complete count of surgical instruments and accessories. Identify mccallum patient concerns for recovery and management of the patient. Patient remains free from injury realted to surgery. The patient tolerated the procedure well and there were no complications. The patient was taken to the recovery area. The patient remained in stable condition with no apparent complications. Vital signs stable. Injection/procedure/surgical site clean, dry and intact. Post procedure discharge instructions were give to the patient and a follow up appointment was confirmed. The patient was discharged with information on how to reach the clinic at anytime for questions or concerns. Patient discharged ambulatory. Patient denies complaints or questions, Marlyn Cruz 05/06/2023 12:47:48 PM > Progress Notes * Examination Category Sub-Category Detail [...] patient's typical axial low back pain. Barry's, [place]'s and [place]'s are positive bilaterally. There is [...] and Follow-up: Follow-up Plan documen ubaldo:: Yes [facility] Quality 2020: MIPS Documented:: Compliant
--- OUTSIDE RECORDS SUMMARY | 2024-06-23 13:47 | XMS_ITS | Clinical Summary ---
Author Organization [facility] [email or web address] Address [address] [place] [address] Care Team Providers Care Comprehensive Advisor Name Role Phone Kush Coe MD Unavailable [phone] Reji Aparicio MD Unavailable Unavailable Mj Mcqueen MD Unavailable [phone] Haley Marroquin MD Unavailable [phone] Luisa Lee MD Unavailable [phone] Karl Flores MD Primary Care Provider [phone] Source Comments [facility],non-owned Affiliates and Associated Physician Practices is amultiple site organization consisting of ambulatory clinics and hospital sitesin [place], [place], [place] and [place]. This disclosure is being madepursuant to the Care Everywhere program and may not contain all information available regarding this patient. Last updated 17.[facility] Allergies Active Allergy Reactions Criticality Noted Date Comments Codeine 07/01/2008 Contrast-Iodinated Agents For Ct/Other 07/01/2008 IVP dye. Darvon 07/01/2008 Demerol 07/01/2008 Penicillins 07/01/2008 Propoxyphene N-Apap 07/01/2008 Tramadol Nausea and/or Vomiting 12/19/2010 Medications * Be aware that medications may not be up to date on this document. Alwaysverify current medications with the patient. atorvastatin (LIPITOR) 20 MG tablet Take 20 mg by mouth at bedtime. Active Metoprolol Succinate (TOPROL XL PO) Take by mouth. Active azelastine (ASTEPRO) 205.5 MCG/SPRAY nasal spray [place] 2 Sprays into each nostril 2 times daily. Active predniSONE (DELTASONE) 20 MG tabletIndicati ons:Cough Take 1 Tab by mouth 2 times daily. for 5 to 7 days for Arthritis flare ups 40 Tab 3 2 Active Cyanocobalamin (VITAMIN B-12 PO) Take by mouth. Activ e Cholecalcifero l (VITAMIN D) 1000 UNIT capsuleIndicat ions:Osteopeni a Take 2 Caps by mouth once daily. 3 Active acetaminophen (TYLENOL) 500 MG tabletIndicati ons:DJD (degenerative joint disease) of knee Take 2 Tabs by mouth 3 times daily. Maximum allowable Acetaminophen amount = 4 Grams (4000 mg) / 24 hours. 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 Gender Identity Not on file Sexual Orientation Not on file Occupation Industry Job Start Date Job End Date [employer] Not on file Not on file Not on file Last Filed Vital Signs [...] - COLON CA SCREENING 1949 MAMMOGRAM 1949 HEPATITIS C SCREENING 03/02/1967 DTAP/TDAP/TD VACCINES (1 - Tdap) 1968 PNEUMOCOCCAL VACCINE 50+ (1 of 1 - PCV) 1999 ZOSTER VACCINE (1 of 2) 1999 COVID-19 VACCINE (1 - 2023-2 5 season) 2023 DEPRESSION SCREENING 02/24/2024 Respiratory Syncytial Virus (RSV) Vaccine Pt: or over 60 yrs (1 - 1-dose 75+ series) 2024 INFLUENZA VACCINE (Season Ended) 2024 HEPATITIS B VACCINE Aged Out No [...] on patient's age to complete this topic Insurance MEDICARE [facility] Address: [address] [place] [address] MEDICARE Care Teams Comprehensive Advisor Relationship Specialty Start Date End Date Karl Flores MD [address] [facility] [address] [place] [address] PCP - General Family Medicine 06/18/20 Kush Coe MD Orthopedic Surgery 06/19/10 Reji Aparicio MD Rheumatology 12/18/10 Mj Mcqueen MD Urology 05/06/12 [place] [address] [place] [address] Dermatology 05/06/12 Luisa Lee MD [facility] [place] [address] Obstetrics and Gynecology 05/06/12
--- NOTE | 2024-06-23 14:30 | NEURO_ITS ---
Clinical note: Patient is 74 years old with history of paresthesias in her right hand and particularly a little finger. She also complains of neck pain. No history of major trauma or diabetes mellitus. A brief neurological examination of the upper limbs did not show any focal muscle weakness or fasciculations. The results of the study are given below. Summary of findings: 1) Right median motor distal latency and conduction velocity was normal , however amplitude was mildly decreased. 2. Right ulnar motor distal latency and conduction velocity within normal limits , but amplitude was mildly decreased. However there was no significant slowing across the elbow. Right Ulnar inching study was also performed shows mild segmental slowing 3. Right median palmar sensory distal latency amplitude were within normal limits however right median digital sensory distal latency is mildly prolonged but amplitude was normal. Right ulnar palmar and a digital sensory distal latencies were mildly prolonged however amplitudes were within normal limits. Right radial sensory distal latency and amplitude was within normal limits. 4. Right Median hand Ulnar motor studies also performed while recording over 2nd lumbrical and 2nd interossei and shows a distal latencies were comparable. 5. EMG examination was performed and various muscles examined right upper limb, which did not show any denervation changes. Motor unit amplitude and duration recruitment pattern were within normal limits. Impression: EMG and nerve conduction study the right upper limb are considered essentially within normal limits.However right ulnar inching study shows mild segmental slowing across the elbow raising possibility of minimal right ulnar neuropathy at elbow. In addition minor abnormalities were noted the median and ulnar sensory studies in hand which did not appear significant. If patient remains symptomatic a follow-up study in future may be helpful. Ramin Ballard MD, FAAN, FAANEM Neurologist Nerve Conduction Studies Motor Nerve Results ? Latency Amplitude F-Lat Segment Distance CV Comment Site (ms) (mV) (ms) (cm) (m/s) Right Med/Ulnar(Lum-INT) Motor ? Median (Lumb I) Wrist 3.2 1.66 ? Ulnar (Dorsal Interossei IV) Wrist 3.3 2.5 Right Median (APB) Motor Wrist 3.5 4.2 Elbow 7.4 4.0 Elbow-Wrist 210 54 Right Ulnar (ADM) Motor Wrist 3.0 5.5 Bel Elbow 6.3 5.2 Bel Elbow-Wrist 190 58 Abv Elbow 7.8 5.4 Abv Elbow-Bel Elbow 80 53 Right Ulnar-Inching (ADM) Motor Wrist 3.0 5.5 E+4 6.1 5.7 E+2 6.6 5.5 E 7.8 5.1 E-2 8.0 5.5 Sensory Nerve Results ? Latency (Peak) Amplitude (P-P) Segment Distance CV Comment Site (ms) (?V) (cm) (m/s) Right Median DigIII Sensory Wrist-Dig III 3.6 77 Wrist-Dig III 120 33 Right Median-Ulnar Palmar Sensory ? Median Palm-Wrist 2.1 68 Palm-Wrist 80 38 ? Ulnar Palm-Wrist 2.3 26 Palm-Wrist 80 35 Right Radial Sensory Forearm-Wrist 1.98 29 Forearm-Wrist 100 51 Right Ulnar Sensory Wrist-Dig V 3.4 48 Wrist-Dig V 115 34 Electromyography ?Side Muscle Nerve Ins Act Fibs Psw Amp Dur Recrt Comment Right Deltoid Axillary Nml Nml Nml Nml Nml Nml Right Biceps Musculocut Nml Nml Nml Nml Nml Nml Right Triceps Radial Nml Nml Nml Nml Nml Nml Right Ext Digitorum Radial (Post Int) Nml Nml Nml Nml Nml Nml Right ExtCarUln Radial (Post Int) Nml Nml Nml Nml Nml Nml Right Ext Indicis Radial (Post Int) Nml Nml Nml Nml Nml Nml Right FlexPolLong Median (Ant Int) Nml Nml Nml Nml Nml Nml Right 1stDorInt Ulnar Nml Nml Nml Nml Nml Nml Right Abd Poll Brev Median Nml Nml Nml Nml Nml Nml Right FlexDigProf Ulnar Nml Nml Nml Nml Nml Nml Right FlexCarRad Median Nml Nml Nml Nml Nml Nml MTDD
== END 2024-06-23 12:56 | disposition home or self-care (01) ==
LOC: ANHNEURO 12:56
PROVIDERS: PCP Family Medicine; Visit Provider Plastic Surgery
DX: G56.01 Carpal tunnel syndrome, right upper limb (principal); M18.11 Unilateral primary osteoarthritis of first carpometacarpal joint, right hand
CPT/HCPCS: 95886; 95910

== ENCOUNTER 2024-08-10 13:30 | Outpatient (RCR) | payer MEDICARE, BC, SELFPAY ==
--- NOTE | 2024-07-06 13:35 | OPREHPOC ---
Outpatient Therapy Plan of Care This is a Multidisciplinary Plan of Care that may contain components documented by all disciplines (PT, OT, and ST.) PT Problem 1 PT Problem #1 Knowledge Deficit PT Goal 1 Goal / Goal Update 1*independent with HEP 2* pt demonstrate correct lifting from floor Target Visit 8 PT Problem 2 PT Problem #2 Pain PT Goal 1 Goal / Goal Update * pt report pain at worst of 3/10 with increased activity level over low back and R hip Target Visit 8 PT Problem 3 PT Problem #3 Impaired Flexibility PT Goal 1 Goal / Goal Update *increase flexibility of R hip and lumbar area, to decrease pull on hip and spine 1* R hamstring with supine SLR to 55' 2* supine piriformis stretch with leg cross body, pt report same pull R/L Target Visit 8 PT Problem 4 PT Problem #4 Impaired Strength PT Goal 1 Goal / Goal Update *increase strength of trunk and R hip to 4+/5, to improve stability to spine/trunk Target Visit 8
--- NOTE | 2024-07-06 13:35 | PTOPEVAL1 ---
Assessment and note entered by Petra Marroquin, PT Evaluation Information Assessment Status Evaluation ICD-10 Condition Codes (PT) Pain in R hip M25.552 Other ICD-10 Condition Codes ( trochanteric bursitis M70.61 PT) Onset about 1 year ago Subjective Information onset about 1 year ago with walking on uneven ground more with gardening and plants; chronic issues with R hip pain have had injections in the past and they have helped-- last one about 5 years ago the recent injection on 06-17-24 has helped her pain; hip x ray: reports states: mild OA medical history: chronic neck and back pain; previous R hip pain; activity: independent with home activities and self care, active; does not do regular fitness exercises, but just started fitness membership and going to go with a friend tomorrow; Reported Pain Level Pain Score Self Report Additional Pain Score Comments pain range in the past week: no pain in R lateral hip; chronic pain in low back improved since had hip injection on 06-17-24 Assessment PT Clinical Summary Stephania has the diagnosis of R hip pain, trochanteric bursitis. The injection has eased her hip pain. She has a history of chronic back pain and scoliosis. x ray of her hip reports mild OA. She is active and does not use an assistive device. But recently purchased a cane and was instructed on its' use PRN for decrease pressure on hip. LE functional scale rating of 35% limitation in activity level. With the evaluation: tenderness over R and lower lumbar and R mid ITB; poor standing posture with concave curvature of spine to R, R hip elevated and forward rotation; tightness over R hamstring and piriformis muscles; weakness of hip abduction muscle. Skilled PT services are indicated for modalities PRN for pain and spasms over low back and R hip, therapeutic exercises to stretch and strengthen trunk and hips, with education for HEP and posture /body mechanics. Plan of Care Interventions Electrical Stimulation,Hot Pack/Cold Pack,Manual Therapy,Neuro Re-education,Patient/Caregiver Education,Therapeutic Activities,Therapeutic Exercise,Ultrasound,Other Other Interventions taping PT Services Indicated Yes Treatment Frequency and 1-2x/wk for 8 visits Duration These treatments will address the objective and functional deficits as defined above. The patient will be advanced safely and appropriately in order for the patient to progress towards his/her prior level of function. Additional exercises will be introduced and as well as a comprehensive home exercise program upon discharge, if needed, ?to ensure carryover of functional gains achieved in the clinic. This treatment plan has been reviewed and agreement upon by the patient.
--- NOTE | 2024-08-10 14:20 | OPREHPOC ---
Outpatient Therapy Plan of Care This is a Multidisciplinary Plan of Care that may contain components documented by all disciplines (PT, OT, and ST.) PT Problem 1 PT Problem #1 Knowledge Deficit PT Goal 1 Goal / Goal Update 1*independent with HEP 2* pt demonstrate correct lifting from floor 08-10-24 d/c goals met Target Visit 8 Progress Met PT Problem 2 PT Problem #2 Pain PT Goal 1 Goal / Goal Update * pt report pain at worst of 3/10 with increased activity level over low back and R hip 08-10-24 d/c goal met Target Visit 8 Progress Met PT Problem 3 PT Problem #3 Impaired Flexibility PT Goal 1 Goal / Goal Update *increase flexibility of R hip and lumbar area, to decrease pull on hip and spine 1* R hamstring with supine SLR to 55' 2* supine piriformis stretch with leg cross body, pt report same pull R/L 08-10-24 d/c goals met Target Visit 8 Progress Met PT Problem 4 PT Problem #4 Impaired Strength PT Goal 1 Goal / Goal Update *increase strength of trunk and R hip to 4+/5, to improve stability to spine/trunk 08-10-24 d/c goal met Target Visit 8 Progress Met
--- NOTE | 2024-08-10 14:20 | PTOPDC ---
Assessment and note entered by Petra Marroquin, PT Assessment Status Discharge ICD-10 Condition Codes (PT) Pain in right hip M25.551 Other ICD-10 Condition Codes ( trochanteric bursitis M70.61 PT) Onset about 1 year ago Subjective Information was doing really well, then felt a twinge in my hip with getting out of bed and still there; have been doing the water exercises 3x/wk and like them ; have been doing the bike and treadmill also at the gym; have not vacuumed yet, putting it off; some limitations in my hands due to arthritis; have been doing the exercises; Reported Pain Level Pain Score Self Report Additional Pain Score Comments pain range in the past week 0-1/0; lateral hip have been taking it easy, not doing as much; Assessment PT Clinical Summary Stephania has received 8 PT sessions. She has improved compared to the initial evaluation; with today's assessment: pain 0-1/10 ; self assessment with LE functional scale rating of 18% limitation in activity level; increase strength of trunk and hips; increase flexibility R piriformis and hamstring muscles; education for lifting, body mechanics and HEP. The goals were achieved. Discharge PT services. She is to continue with her HEP and pain management techniques. Plan of Care PT Services Indicated No
== END 2024-08-16 11:05 | disposition home or self-care (01) ==
LOC: ANHPT 13:30
PROVIDERS: Visit Provider Physician Assistant Surgical
DX: M70.61 Trochanteric bursitis, right hip (principal)
CPT/HCPCS: 97110; 97116; 97140; 97161; 97530

== ENCOUNTER 2024-12-29 11:17 | Outpatient (CLI) | payer MEDICARE, BC, SELFPAY ==
--- NOTE | ~2024-12-29 | XR_ITS ---
Examination: XR chest 2V Clinical History: Other pruritus Comparison: 03/30/2020 Technique: PA and Lateral Findings: Cardiomediastinal silhouette normal size and configuration. Biapical pleural parenchymal scarring. Chronic hyperinflation. No acute bony abnormality. IMPRESSION: 1. No acute cardiopulmonary findings. 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
== END 2024-12-29 11:18 | disposition home or self-care (01) ==
PROVIDERS: PCP Family Medicine
DX: L29.89 Other pruritus (principal)
CPT/HCPCS: 71046

== ENCOUNTER 2025-01-27 07:37 | Outpatient (CLI) | payer MEDICARE, BC, SELFPAY ==
--- NOTE | ~2025-01-27 | MM_ITS ---
EXAMINATION: MM screening celio BI w carlos HISTORY: Screening. TECHNIQUE: Craniocaudal and mediolateral oblique 3-D tomosynthesis images were obtained and synthetic 2-D images were generated. CAD analysis was submitted and interpreted. COMPARISON: 2023, 2022, and 2021. BREAST PARENCHYMAL COMPOSITION: Not Dense: There are scattered areas of fibroglandular FINDINGS: No suspicious masses are seen. There are no suspicious calcifications. No unexplained architectural distortion is seen. There are no skin or nipple abnormalities identified. There is no adenopathy seen on the images submitted. IMPRESSION: No mammographic or sonographic evidence to suggest malignancy is seen. The patient may return to screening mammography as per ACR guidelines. BI-RADS 1 - Negative. 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 The danie ent may return to screening mammography as per ACR guidelines. BI-RADS 1 - Negative.
== END 2025-01-27 07:38 | disposition home or self-care (01) ==
LOC: CHSIMG 07:38
PROVIDERS: PCP Family Medicine; Visit Provider Obstetrics & Gynecology
DX: Z12.31 Encounter for screening mammogram for malignant neoplasm of breast (principal)
CPT/HCPCS: 77063; 77067